=== PATIENT | male | born 1985 | race Caucasian/White ===

== ENCOUNTER 2023-02-28 20:06 | Emergency (ER) | payer SELFPAY ==
[2023-02-28 20:06] VITALS: BP 164/72; PULSE 81; RESP 16; TEMP 36.6; O2SAT 98; BMI 27.6
--- NOTE | 2023-02-28 20:18 | ED.RN ---
In room with physician during physical exam, patient tolerated well.
[2023-02-28] MEDS: Lidocaine Jelly 2% 20 ML Syringe (URO-JET) 1 APPLIC TOPICAL (20:48)
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
== END 2023-02-28 20:51 | disposition home or self-care (01) ==
PROVIDERS: Emergency Provider Emergency Medicine; Visit Provider Emergency Medicine
DX: K64.4 Residual hemorrhoidal skin tags (principal)
CPT/HCPCS: 99282

== ENCOUNTER 2023-03-01 18:26 | Emergency (ER) | payer SELFPAY ==
[2023-03-01 18:27] VITALS: BP 127/77; PULSE 84; RESP 18; TEMP 36.6; O2SAT 99; BMI 26.6
--- NOTE | 2023-03-01 21:02 | ED.VIS.GI ---
HPI HPI - GI History of Present Illness Chief Complaint: Wound Check Detail of Chief Complaint: Hemorrhoid pain. Informant: patient and spouse/S.O. Abdominal Pain/Flank Pain Onset: Days Context: Gradual Onset Timing: Continuous Nausea/Vomiting/Emesis GI Symptom: Negative for Nausea or Vomiting Diarrhea/Melena/Hematochezia GI Symptom: Negative for Diarrhea, Melena or Hematochezia Associated Symptoms Associated Symptoms: Negative for Dysuria, Frequency or Hematuria Narrative Narrative: 37-year-old male history of external hemorrhoids. Was seen in the ER the other day placed on lidocaine jelly. The hemorrhoid pain is worse. He denies any bleeding. No fever. No other complaints. Prior similar symptoms: Yes Recent Illness/Hospitalization: No PFSH PFSH no medical history Home Medications Ibuprofen [Motrin] 800 mg PO TID PRN PRN Pain #15 tabs 03/15/15 [Rx Last Taken Unknown] tramadol 50 mg tablet 50 mg PO Q6H PRN PRN Pain #10 tabs 03/15/15 [Rx Last Taken Unknown] clindamycin HCl 150 mg capsule 300 mg (2 x 150 mg) PO 4X/DAY ##80 04/12/15 [Rx Last Taken Unknown] tramadol 50 mg tablet 50 mg PO Q4H PRN PRN Pain #12 tabs 04/12/15 [Rx Last Taken Unknown] Allergy/AdvReac Type Severity Reaction Status Date / Time bee venom protein (honey bee) Allergy Severe Anaphylaxis Verified 03/01/23 18:27 guaifenesin [From Robitussin] Allergy THROAT Verified 03/01/23 18:27 SWELLING Penicillins Allergy THROAT Verified 03/01/23 18:27 SWELLING Social History Smoking Status: Never smoker ROS ROS ED ROS Narrative Denies any recent illness. Perirectal pain. Review of Systems ROS Unobtainable: Denies due to encephalopathy Constitutional Constitutional ED: Denies chills or fever(s) ENT ENT ED: Denies ear pain Cardiovascular Cardiovascular: Denies chest pain Respiratory/Chest Respiratory/Chest: Denies cough Gastrointestinal Gastrointestinal: Denies abdominal pain, constipation, diarrhea, melena, nausea or vomiting Genitourinary Genitourinary ED: Denies dysuria Musculoskeletal Musculoskeletal: Denies arthralgias Integumentary Denies abscess Neurologic Neurologic: Denies headache(s) Psychiatric Psychiatric: Denies anxiety Endocrine Endocrinology: Denies polydipsia Hematologic/Lymphatic Hematologic/Lymphatic: Denies easy bleeding Allergic/Immunologic Allergic/Immunologic ED: Denies mouth swelling EXAM Physical Exam Narrative Exam Narrative: Well-appearing 37-year-old male vital signs stable afebrile. HEENT exam normal. Lungs clear. Heart regular rhythm. Abdomen soft nontender. Anal exam is 1 external hemorrhoid appears to be thrombosed. There is no bleeding. There is no redness. Otherwise exam unremarkable. Const Vital Signs: 03/01/23 18:27 Temperature 97.8 F Temperature Source Temporal Pulse Rate 84 Respiratory Rate 18 Blood Pressure 127/77 H Blood Pressure Mean 93 Pulse Ox 99 Oxygen Delivery Method Room Air Positive well nourished and well developed; Negative for obese, cachectic, contractures or unkempt General Appearance ED: well developed and NAD; Negative for unkempt, cachectic, contractures or pallor Nutritional Appearance: Negative for cachectic or obese HEENT Reports moist mucous membranes normocephalic and atraumatic; Negative for trauma or tenderness Eyes PERRL and EOMs intact bilaterally General Eye ED: Negative for pale conjunctiva, scleral icterus or other Neck no lymphadenopathy, supple and no JVD General: Negative for tenderness Carotids: Negative for other Lymph Lymphatic: Negative for other Resp normal respiratory effort and clear to auscultation bilaterally Effort and Inspection: Negative for respiratory distress Auscultation: Negative for rales, rhonchi or wheezes Cardio regular rate, regular rhythm, S1 normal heart sound, S2 normal heart sound and no murmurs Rate: Negative for bradycardia or tachycardic Rhythm: Negative for abnormal rhythm GI non-tender, non-distended and no masses GI Narrative: External thrombosed hemorrhoid. Tender to palpation. Inspection: Negative for abdominal distention Auscultation: normoactive bowel sounds Palpation: soft; Negative for tender or guarding Back/Spine no CVA tenderness Extremity full ROM General Extremety ED: Negative for edema or tenderness General Extremity: Negative for edema Neuro CN's II-XII intact bilaterally and moves all extremities Sensorium / Orientation: alert, oriented to person, oriented to place and oriented to time; Negative for orientation impaired, confused, lethargic or stuporous Motor Exam: strength 5/5 throughout Psych mental status grossly normal and thought process normal Appearance: Negative for unkempt Attitude: No agitated Mood & Affect: Negative for depressed, anxious or tearful Skin no wounds General Skin Exam: Negative for jaundice or pallor Lesions: no lesions Rashes: no rashes Trauma: Negative for abrasion Nails: Negative for discolored MDM MDM MDM Narrative Medical decision making narrative: 37-year-old male with a thrombosed external hemorrhoid. Lidocaine jelly not controlling his pain. Patient wanted it excised and drained. Local anesthetized with lidocaine. Cleaned with Shur-Clens. I made a 2 cm incision irrigate out the clot. Discharged home instructed on hemorrhoid care. Referred to general surgery for hemorrhoidectomy as needed. History & Record Review Discussion w/independent historian: Patient and Family Procedures Other Procedures Procedure(s): Thrombosed external hemorrhoid incision and drainage. Shur-Clens. Local anesthetized with lidocaine. Made a 1 to 2 cm vertical incision. Irrigated out blood clot. Patient tolerated well. Discharge Plan Triage Chief Complaint: Wound Check ED Provider: Earle Guzman Dx/Rx/DC Orders Clinical Impression: External hemorrhoid, thrombosed Instructions: Thrombosed Hemorrhoids Prescriptions: No Action tramadol 50 MG tablet 50 mg PO Q6H PRN PRN (Reason: Pain) Qty: 10 0RF Ibuprofen [Motrin] 800 MG tablet 800 mg PO TID PRN PRN (Reason: Pain) Qty: 15 0RF clindamycin HCl 150 MG capsule 300 mg PO 4X/DAY Qty: 80 0RF tramadol 50 MG tablet 50 mg PO Q4H PRN PRN (Reason: Pain) Qty: 12 0RF Primary Care Provider: Care Physician,No Primary Referrals: Armani Lynne MD [Med Staff - Active Staff] - As Needed Care Physician,No Primary [Primary Care Provider] - Activity Restrictions/Additional Instructions: Motrin and Tylenol for pain. Preparation H or hemorrhoid cream 3 times a day. Warm soaks. If it does not completely go away follow-up with a local surgeon they can remove the hemorrhoid completely. Disposition Disposition: Home, Self Care
--- NOTE | 2023-03-01 21:21 | ED.RN ---
Wound dressed with non-stick and drain sponges. Patient verbalized understanding of instructions. Ambulatory from department.
== END 2023-03-01 21:23 | disposition home or self-care (01) ==
PROVIDERS: Emergency Provider Emergency Medicine; Visit Provider Emergency Medicine
DX: K64.5 Perianal venous thrombosis (principal)
CPT/HCPCS: 46083; 99283

== ENCOUNTER 2023-06-30 20:50 | Emergency (ER) | payer SELFPAY ==
[2023-06-30 20:51] VITALS: BP 113/87; PULSE 94; RESP 16; TEMP 36.6; O2SAT 97; BMI 22.2
--- NOTE | 2023-06-30 22:14 | ED.VIS.DENTA ---
HPI History of Present Illness Chief Complaint: Dental Detail of Chief Complaint: Dental pain involving multiple teeth Informant: patient Onset/Context/Timing Onset: Weeks Context: Sudden Onset Timing: Continuous and Waxes and wanes Quality: Pain Location: Above upper incisors teeth 7 through 10 Current Severity: Mild Maximum Severity: Severe Worsened by: Hot liquids Relieved by: - (Nothing) Associated Symptoms Assocated Symptom - Dental: cold sensitivity and hot sensitivity; Negative for fever, jaw swelling or face swelling Narrative Narrative: Patient is a 37-year-old male. He presents with dental pain. Started a week ago. He initially had sensitivity to cold liquids and ice cream. He now has sensitivity to hot liquids. He localizes the pain in the proximity of teeth 7 through 10. He denies fever, chills night sweats. [place] history medic fever, heart murmur mitral prolapse. He denies facial swelling or redness. He denies difficulty opening or closing his mouth. He apparently has a dental appointment. Prior similar symptoms: No Recent Illness/Hospitalization: No PFSH PFSH Home Medications Ibuprofen [Motrin] 800 mg PO TID PRN PRN Pain #15 tabs 03/15/15 [Rx Last Taken Unknown] tramadol 50 mg tablet 50 mg PO Q6H PRN PRN Pain #10 tabs 03/15/15 [Rx Last Taken Unknown] clindamycin HCl 150 mg capsule 300 mg (2 x 150 mg) PO 4X/DAY ##80 04/12/15 [Rx Last Taken Unknown] tramadol 50 mg tablet 50 mg PO Q4H PRN PRN Pain #12 tabs 04/12/15 [Rx Last Taken Unknown] clindamycin HCl 150 mg capsule 300 mg (2 x 150 mg) PO 4X/DAY #56 CAPSULES 06/30/23 [Rx Last Taken Unknown] hydrocodone-acetaminophen 5-325mg 5mg-325mg 1 tab PO Q6H PRN PRN Pain 3 days #10 TABLETS 06/30/23 [Rx Last Taken Unknown] ibuprofen 600 mg tablet 600 mg PO Q6H PRN PRN pain #20 TABLETS 06/30/23 [Rx Last Taken Unknown] Allergy/AdvReac Type Severity Reaction Status Date / Time bee venom protein (honey bee) Allergy Severe Anaphylaxis Verified 06/30/23 21:46 guaifenesin [From Robitussin] Allergy THROAT Verified 06/30/23 21:46 SWELLING Penicillins Allergy THROAT Verified 06/30/23 21:46 SWELLING Surgical History no surgical history no surgical history Social History (Updated 06/30/23 @ 22:[address] Savage Tamayo MD) household members: family Smoking Status: Current every day smoker tobacco type: cigarettes alcohol intake: current ROS ROS ED Constitutional Constitutional ED: Denies chills, fever(s), subjective, sweats or weight loss Eyes Eyes: Denies blurry vision or change in vision ENT ENT ED: Reports other Details: Dental pain as described in the HPI narrative ; Denies ear pain, rhinorrhea or sore throat Cardiovascular Cardiovascular: Reports other Details: No history medic fever, heart murmur mitral valve prolapse. No history of SBE. Respiratory/Chest Respiratory/Chest: Denies cough, dyspnea or dyspnea on exertion Gastrointestinal Gastrointestinal: Denies nausea or vomiting Integumentary Denies abscess or rash Neurologic Neurologic: Denies headache(s) Hematologic/Lymphatic Hematologic/Lymphatic: Denies easy bleeding or easy bruising Allergic/Immunologic Allergic/Immunologic ED: Denies mouth swelling or tongue swelling EXAM Physical Exam Const Vital Signs: 06/30/23 20:51 Temperature 97.9 F Temperature Source Temporal Pulse Rate 94 Respiratory Rate 16 Blood Pressure 113/87 H Blood Pressure Mean 95 Pulse Ox 97 Oxygen Delivery Method Room Air Positive well nourished and well developed Constitutional Narrative: Patient appears slightly uncomfortable. General Appearance ED: well developed HEENT HEENT Narrative: Patient has numerous dental caries. There is abnormality of the gum above tooth #7 and 8. There is no fluctuance. There is receding gumline. There is evidence of plaque buildup with acute on chronic gingivitis and periodontal disease. He has no evidence of trismus. There is no evidence of facial swelling or cellulitis. There is a click appreciated over the left TMJ with opening closing his mouth. There is no preauricular lymphadenopathy. There is no swelling of his lips. Face and Sinus: Negative for sinuses nontender Mouth ED: Yes oral and palatal mucosa normal, Yes lips normal, Yes tongue normal and No mouth trauma Mouth: oral and palatal mucosa normal, lips normal, tongue normal and No mouth trauma Teeth and Gingiva: abnormal tooth and associated gingiva, caries, gingiva abnormal, poor dentition and teeth discoloration Throat: posterior oropharynx normal Eyes PERRL and EOMs intact bilaterally General Eye ED: Negative for pale conjunctiva or scleral icterus Neck no lymphadenopathy, supple and no JVD Neck Narrative: Trachea is midline. There is no inspiratory expiratory stridor. General: normal visual inspection; Negative for anterior neck swelling, tenderness or submandibular swelling Resp normal respiratory effort, no retractions and clear to auscultation bilaterally Cardio regular rate, regular rhythm, S1 normal heart sound, S2 normal heart sound and no murmurs Neuro oriented x3 and CN's II-XII intact bilaterally Sensorium / Orientation: alert Psych mental status grossly normal Skin no rashes or lesions noted and no wounds MDM MDM MDM Narrative Medical decision making narrative: Patient has significant dental disease. He has symptomatic irreversible pulpitis. He has numerous cavities. He probably has a deep dental infection on top of this. In light of his allergy to penicillin he was treated with clindamycin. He was treated with NSAID and opiate analgesia for his pain. He was instructed to keep his appointment with a dentist since the only 1 who can take care of his pain definitively is a dentist since he has irreversible pulpitis. History & Record Review Discussion w/independent historian: Family Treatment and Re-Evaluation Narrative: Patient received ibuprofen, [place] and clindamycin in the emergency department prior to discharge. Discharge Plan Triage Chief Complaint: Dental ED Provider: Savage Tamayo Dx/Rx/DC Orders Clinical Impression: Dental caries of root surface, Periodontitis, Dental caries extending into dentin, Symptomatic irreversible pulpitis, Gingivitis due to dental plaque Instructions: ED Dental Cavity Prescriptions: New hydrocodone-acetaminophen [hydrocodone-acetaminophen] 5-325 mg tablet 1 tab PO Q6H PRN PRN (Reason: Pain) 3 Days Qty: 10 0RF clindamycin HCl 150 mg capsule 300 mg PO 4X/DAY Qty: 56 0RF ibuprofen 600 mg tablet 600 mg PO Q6H PRN PRN (Reason: pain) Qty: 20 0RF No Action tramadol 50 MG tablet 50 mg PO Q6H PRN PRN (Reason: Pain) Qty: 10 0RF Ibuprofen [Motrin] 800 MG tablet 800 mg PO TID PRN PRN (Reason: Pain) Qty: 15 0RF clindamycin HCl 150 MG capsule 300 mg PO 4X/DAY Qty: 80 0RF tramadol 50 MG tablet 50 mg PO Q4H PRN PRN (Reason: Pain) Qty: 12 0RF Primary Care Provider: Care Physician,No Primary Referrals: Care Physician,No Primary [Primary Care Provider] - Dentist,Your [STAFF PHYSICIAN] - 3-5 Days Disposition Disposition: Home, Self Care
[2023-06-30] MEDS: Ibuprofen 400 MG Tablet 800 MG PO (22:21)
[2023-06-30] MEDS: HYDROcodone Bitartrate/Apap 5/325 Tablet PO (22:21)
[2023-06-30] MEDS: Clindamycin HCl 150 MG Capsule 300 MG PO (22:21)
[2023-06-30 22:42] VITALS: PULSE 80; RESP 18; O2SAT 98
[2023-06-30 22:43] VITALS: RESP 16
== END 2023-06-30 22:44 | disposition home or self-care (01) ==
PROVIDERS: Emergency Provider Emergency Medicine; Visit Provider Emergency Medicine
DX: K02.7 Dental root caries (principal); K04.02 Irreversible pulpitis; F17.210 Nicotine dependence, cigarettes, uncomplicated; K05.30 Chronic periodontitis, unspecified; K05.10 Chronic gingivitis, plaque induced
CPT/HCPCS: 99283

== ENCOUNTER 2023-09-30 19:32 | Emergency (ER) | payer SELFPAY ==
[2023-09-30 19:33] VITALS: BP 135/66; PULSE 82; RESP 14; TEMP 36.2; O2SAT 97; BMI 26.2
--- NOTE | 2023-09-30 20:19 | ED.VIS.LOWEX ---
HPI History of Present Illness Chief Complaint: Lower Extremity Injury Informant: patient Narrative Narrative: Left great toe injury while moving a couch with his brother. States toenail caught on the wooden edge, nail came up pulled up bleeding. He trim the nail down. Pain to the toe. No medications taken. No history gastric ulcers or kidney problems. [facility] PFSH Medical History no medical history Home Medications Ibuprofen [Motrin] 800 mg PO TID PRN PRN Pain #15 tabs 03/15/15 [Rx Last Taken Unknown] tramadol 50 mg tablet 50 mg PO Q6H PRN PRN Pain #10 tabs 03/15/15 [Rx Last Taken Unknown] clindamycin HCl 150 mg capsule 300 mg (2 x 150 mg) PO 4X/DAY ##80 04/12/15 [Rx Last Taken Unknown] tramadol 50 mg tablet 50 mg PO Q4H PRN PRN Pain #12 tabs 04/12/15 [Rx Last Taken Unknown] clindamycin HCl 150 mg capsule 300 mg (2 x 150 mg) PO 4X/DAY #56 CAPSULES 06/30/23 [Rx Last Taken Unknown] hydrocodone-acetaminophen 5-325mg 5mg-325mg 1 tab PO Q6H PRN PRN Pain 3 days #10 TABLETS 06/30/23 [Rx Last Taken Unknown] ibuprofen 600 mg tablet 600 mg PO Q6H PRN PRN pain #20 TABLETS 06/30/23 [Rx Last Taken Unknown] Allergy/AdvReac Type Severity Reaction Status Date / Time bee venom protein (honey bee) Allergy Severe Anaphylaxis Verified 09/30/23 19:33 guaifenesin [From Robitussin] Allergy THROAT Verified 09/30/23 19:33 SWELLING Penicillins Allergy THROAT Verified 09/30/23 19:33 SWELLING Social History household members: family Smoking Status: Current every day smoker tobacco type: cigarettes alcohol intake: current ROS ROS ED Constitutional Constitutional ED: Denies chills, fever(s) or sweats Eyes Eyes: Denies change in vision ENT ENT ED: Denies dysphagia or sore throat Cardiovascular Cardiovascular: Denies chest pain, leg edema, palpitations or racing heartbeat Respiratory/Chest Respiratory/Chest: Denies cough, dyspnea or dyspnea on exertion Gastrointestinal Gastrointestinal: Denies abdominal pain, diarrhea, nausea or vomiting Genitourinary Genitourinary ED: Denies dysuria, hematuria or urinary frequency Musculoskeletal Musculoskeletal: Reports extremity pain and other Details: Left great toe pain. ; Denies back pain or neck pain Integumentary Denies rash or wounds Neurologic Neurologic: Denies headache(s), paresthesias or weakness EXAM Physical Exam Const Vital Signs: 09/30/23 19:33 Temperature 97.2 F L Temperature Source Temporal Pulse Rate 82 Respiratory Rate 14 Blood Pressure 135/66 H Blood Pressure Mean 89 Pulse Ox 97 Oxygen Delivery Method Room Air Positive well nourished and well developed General Appearance ED: well developed and NAD HEENT Reports moist mucous membranes normocephalic and atraumatic Eyes PERRL, EOMs intact bilaterally and conjunctivae normal General Eye ED: Yes normal appearance of both eyes Neck no lymphadenopathy and supple General: Negative for tenderness Chest Wall Chest: Negative for tenderness Resp normal respiratory effort and normal air movement Effort and Inspection: symmetric chest movement; Negative for respiratory distress Cardio regular rate, regular rhythm and no murmurs Peripheral Pulses: pulses 2+ throughout GI normal to inspection, nondistended, normoactive bowel sounds and non-tender Palpation: Negative for guarding or rebound tenderness present Back/Spine no CVA tenderness and no thoracic nor lumbar tenderness Extremity Extremity Narrative: Left lower extremity: Foot with left great toe: Bandage removed, trim toenail there is no current avulsion there is tender palpation proximal phalanx. No open lacerations. No active bleeding. No contusion of nailbed. General Extremety ED: Yes tenderness; Negative for edema General Extremity: Negative for edema Neuro oriented x3 and no sensory deficits noted Sensorium / Orientation: awake and alert Skin no rashes or lesions noted and no wounds MDM MDM MDM Narrative Medical decision making narrative: Interventions / MDM: Differential diagnosis: Toenail avulsion Diagnosis considered but do not suspect: No subungual hematoma. Fracture however x-ray negative no fracture noted. My EKG interpretation: N/A Imaging independently reviewed and interpreted by myself: Left foot 3 views: External documents reviewed: N/A Test considered but not ordered:N/A ED course: Ice placed, ibuprofen. X-ray left foot. X-ray negative. Band-Aids used to help hold down the nail, no current avulsion. Use ibuprofen as needed. Outpatient follow-up given podiatry as needed. All questions were answered. Re-evaluation: stable Disposition discussed with patient/family/significant other: Patient and family Case discussed with consulting clinician: N/A This note was generated with [employer] dictation software. It may contain incorrect words, spelling, and punctuation that were not noted in checking the note before signing. Discharge Plan Triage Chief Complaint: Lower Extremity Injury ED Provider: Huang Carrizales Dx/Rx/DC Orders Clinical Impression: Avulsion of toenail of left foot Instructions: ED Detached Fingernail or Toenail Prescriptions: No Action tramadol 50 MG tablet 50 mg PO Q6H PRN PRN (Reason: Pain) Qty: 10 0RF Ibuprofen [Motrin] 800 MG tablet 800 mg PO TID PRN PRN (Reason: Pain) Qty: 15 0RF clindamycin HCl 150 MG capsule 300 mg PO 4X/DAY Qty: 80 0RF tramadol 50 MG tablet 50 mg PO Q4H PRN PRN (Reason: Pain) Qty: 12 0RF hydrocodone-acetaminophen [hydrocodone-acetaminophen] 5-325 mg tablet 1 tab PO Q6H PRN PRN (Reason: Pain) 3 Days Qty: 10 0RF clindamycin HCl 150 mg capsule 300 mg PO 4X/DAY Qty: 56 0RF ibuprofen 600 mg tablet 600 mg PO Q6H PRN PRN (Reason: pain) Qty: 20 0RF Primary Care Provider: Care Physician,No Primary Referrals: Roger Smith DPM [Med Staff - Active Staff] - 1-2 Weeks Care Physician,No Primary [Primary Care Provider] - Activity Restrictions/Additional Instructions: X-ray of foot negative. Continue to use Band-Aids to hold toenail down. Ibuprofen 600 mg every 6 hours as needed. Follow-up with foot doctor as needed. Disposition Disposition: Home, Self Care
--- NOTE | 2023-09-30 20:25 | RAD_ITS ---
EXAM: XR LEFT FOOT COMPLETE, 3 OR MORE VIEWS CLINICAL INDICATION: injury -- great toe TECHNIQUE: Frontal, lateral and oblique views of the left foot. COMPARISON: No relevant prior studies available. FINDINGS: BONES/JOINTS: Unremarkable. No acute fracture. No subluxation. Normal alignment. Preservation of the joint space. No sclerotic or destructive changes observed. SOFT TISSUES: Unremarkable. No soft tissue swelling or gas. No radiopaque foreign body. RAD/Foot min 3 Views IMPRESSION: Negative left foot x-rays. Electronically Signed: Stan Nix MD at 21:06 EST ,
--- OUTSIDE RECORDS SUMMARY | 2023-09-30 20:29 | XMS RPT_ITS | CCD ---
Author Name Unknown Address [address] [place] [id number] Organization [facility] Care Team Providers Care Knitter Helper Name Role Phone Unavailable Primary Care Provider Unavailabl e Allergies Allergy Classification Reported Allergen(s) Allergy Type Date of Onset Reaction(s) Facility (1 source) bee venom Propensity to adverse reactions to drug 11-17-2021 [facility] (1 source) guaiFENesin Drug Allergy 11-17-2021 [facility] Work Phone: (1 source) Penicillins Propensity to adverse reactions to drug 11-17-2021 [facility] Work Phone: Problems Problem Classification Problem Date Documented Da te Episodic/Chronic Sprains and strains (1 source) Sprain of left ankle; Translations: [Sprain of unspecified ligament of left ankle, initial encounter] Episodic Results Test Name Value Interpretation Reference Range Facil ity Vital Signs Date Time Vital Sign Value Performing Clinician Johnson vallejo 11-17-2021 18:33-0400 Body height 193 cm [facility] 11-17-2021 18:33-0400 Body mass index (BMI) [Ratio] 24.34 kg/m2 [facility] 11-17-2021 18:33-0400 Body weight 90.72 kg [facility] 11-17-2021 18:22-0400 Body temperature 98.2 [degF] [facility] 11-17-2021 18:22-0400 Diastolic blood pressure 74 mm[Hg] [facility] 11-17-2021 18:22-0400 Heart rate 96 /min [facility] 11-17-2021 18:22-0400 Respiratory rate 14 /min [facility] 11-17-2021 18:22-0400 SaO2% (BldA) [Mass fraction] 97 % [facility] 11-17-2021 18:22-0400 Systolic blood pressure 135 mm[Hg] Octavia kenneth Encounters Encounter Date Encounter Type Care Provider Facility Start: 11-17-2021 End: 11-17-2021 Emergency department patient visit [facility] Start: 11-17-2021 End: 11-17-2021 Emergency department patient visit [facility] Procedures Date Procedure Procedure Detail Performing Clinician [facility]: [facility] Start: 11-17-2021 Radex ankle complete minimum 3 views Start: 11-17-2021 Radex ankle complete minimum 3 views Katia Ferraro PA Work Phone: Plan of Treatment Date Care Activity Detail Author Start: 03-25-2022 Influenza vaccination Flu vaccine (S terrance Ended) [facility] Start: 11-18-2006 DTaP/Tdap/Td vaccine (1 - Tdap) DTaP/Tdap/Td vaccine (1 - Tdap) [facility] Start: 11-18-2005 Hepatitis C screening Hepatitis C sc reen [facility] Start: 11-18-2002 HIV screening HIV screen [facility] Start: 1999 Depression Screen Depression Screen [facility] Start: 11-18-1992 COVID-19 Vaccine (1) COVID-19 Vaccin e (1) [facility] Start: 11-18-1988 Varicella vaccine (1 of 2 - 2-dose childhood series) Varicella vaccine (1 of 2 - 2-dose childhood series) [facility] Social History Date Type Detail Facility [facility]: [facility] Start: 11-17-2021 Tobacco use and exposure Former smokeless tobacco user [facility] Phone: Start: 1987 Sex Assigned At Not on file [facility] Phone: Start: 11-07-2021 End: 11-17-2021 Exposure to SARS-CoV-2 (event) Not sure [facility] Phone: Evaluation note Note Date & Type Note Facility documented in this encounter [facility] Phone: Hospital Discharge instructions Attachments Note Date & Type Note Facility Hospital Discharge instructions The following attachments cannot be sent through Care Everywhere.Ankle Sprain (German)RICE: General Info (German)documented in this encounter [facility] Phone: Summary Purpose Family History No Family History Records Found Advance Directives No Advanced Directives Records Found Additional Source Comments Reason for Visit (unrecogniz ed section and content) (unrecognized sect ion and content) No Status Records Found INFORMATION SOURCE (unrecogn ized section and content) FOR RECORDS PERTAINING TO PATIENTS WHO ARE OR HAVE BEEN ENROLLED IN A CHEMICAL DEPENDENCY/SUBSTANCEABUSE PROGRAM, SOME INFORMATION MAY BE OMITTED. This clinical summary was aggregated from multiple sources. Caution should be exercised in using it in the provision of clinical care. This summary normalizes information from multiple sources, and as a consequence, information in this document may materially change the coding, format and clinical context of patient data. In addition, data may be omitted in some cases. CLINICAL DECISIONS SHOULD BE BASED ON THE PRIMARY CLINICAL RECORDS. [facility]. provides no warranty or guarantee of the accuracy or completeness of information in this document.
[2023-09-30] MEDS: Ibuprofen 600 MG Tablet PO (20:50)
[2023-09-30 21:03] VITALS: BP 118/76; PULSE 81; RESP 18; TEMP 36.1; O2SAT 99
== END 2023-09-30 21:03 | disposition home or self-care (01) ==
PROVIDERS: Emergency Provider Emergency Medicine; Visit Provider Emergency Medicine
DX: S91.202A Unspecified open wound of left great toe with damage to nail, initial encounter (principal); X58.XXXA Exposure to other specified factors, initial encounter; Y93.89 Activity, other specified
CPT/HCPCS: 73630; 99282

== ENCOUNTER 2023-11-28 18:12 | Emergency (ER) | payer MEDICAID, SELFPAY ==
[2023-11-28 18:13] VITALS: BP 115/68; PULSE 105; RESP 16; TEMP 36.4; O2SAT 96; BMI 24.8
--- NOTE | 2023-11-28 20:30 | EX.ED.DYSGE1 ---
HPI <MARGY Berry - Last Filed: 11/28/23 21:37> History of Present Illness Chief Complaint: Wound Narrative Narrative: Patient is a 38-year-old male with history of IV drug abuse who has been clean for 9 years who is still in the [facility] program presenting to the emergency department for lesions to his right hand, right lower leg. Patient states they are constant scabs however sometimes they do get more inflamed and red. Patient states sometimes he feels there is infected hairs, they come up as looking like pimples. Patient denies any fever chills nausea or vomiting. Patient states he no longer injects medication. PFSH <MARGY Berry - Last Filed: 11/28/23 21:37> [facility] Home Medications doxycycline hyclate 100 mg capsule 100 mg PO BID #20 caps 11/28/23 [Rx Last Taken Unknown] Allergy/AdvReac Type Severity Reaction Status Date / Time bee venom protein (honey bee) Allergy Severe Anaphylaxis Verified 11/28/23 18:14 guaifenesin [From Robitussin] Allergy THROAT Verified 11/28/23 18:14 SWELLING Penicillins Allergy THROAT Verified 11/28/23 18:14 SWELLING Social History household members: family Smoking Status: Current every day smoker tobacco type: cigarettes alcohol intake: current ROS <MARGY Berry - Last Filed: 11/28/23 21:37> ROS ED ROS Narrative Constitutional: Negative for fever, chills, weight loss, weakness Eyes: Negative for vision loss, vision change, double vision ENT: Negative for any sore throat, ear pain, congestion Cardiovascular: Negative for any chest pain, tightness, palpitations Respiratory: Negative for any cough, sputum production, hemoptysis, dyspnea, dyspnea on exertion, orthopnea Gastrointestinal: Negative for any abdominal pain, nausea, vomiting, diarrhea, constipation, blood in stool, blood in vomit : Negative for any urinary frequency, dysuria, retention, blood in urine Muscle skeletal: Negative for any neck pain, back pain Neurological: Negative for any headache, syncope, dizziness Skin: Negative for any rashes, itching, abrasions, lacerations. Positive for lesions to the right thumb, right wrist, right lower leg Psychiatric: Negative for any depression, anxiety, stress, suicidal ideation, homicidal ideation Hematologic: Negative for any excessive bruising, easy bleeding EXAM <MARGY Berry - Last Filed: 11/28/23 21:37> Physical Exam Narrative Exam Narrative: Vital signs reviewed. Extremities: No peripheral edema, no signs of gross trauma or deformity. Active full range of motion of all extremities. Patient has 2 circular lesions 1 to the base of the right thumb posteriorly, 1 to the right wrist. There is some erythema around these areas, there is a scab in the middle, there is no drainage, there is no fluctuance or abscess formation. Patient does have a similar lesion to the right anterior tibia midline. There is a scab with some surrounding erythema concerning for cellulitis. There is no drainage noted. Neuro: Cranial nerves II through XII intact, no focal neurological deficits. Skin: Clean dry and intact with no rash, purpura, petechiae, vesicles or pustules. Backs/flank: No CVA tenderness, no midline spinal tenderness, no deformity. Psych: Normal mood and affect. No SI, HI or acute psychosis. Const Vital Signs: 11/28/23 18:13 11/28/23 21:41 Temperature 97.5 F L 99.0 F Temperature Source Temporal Pulse Rate 105 H 98 Respiratory Rate 16 18 Blood Pressure 115/68 114/60 Blood Pressure Mean 83 78 Pulse Ox 96 96 Oxygen Delivery Method Room Air <Dr. Jayy Nielsen DO - Last Filed: 11/28/23 22:56> Physical Exam Const Vital Signs: 11/28/23 18:13 11/28/23 21:41 Temperature 97.5 F L 99.0 F Temperature Source Temporal Pulse Rate 105 H 98 Respiratory Rate 16 18 Blood Pressure 115/68 114/60 Blood Pressure Mean 83 78 Pulse Ox 96 96 Oxygen Delivery Method Room Air [facility] <MARGY Berry - Last Filed: 11/28/23 21:37> [facility] Treatment and Re-Evaluation :: Differential diagnosis includes however is not limited to: Cellulitis, abscess formation, abrasion, injection cox Patient appears to be in no obvious respiratory distress, patient's vital signs are stable. Patient presents to the emergency department with lesions to the right thumb, right wrist. Patient also has a lesion to the right tibia. These look to be chronic however there is some surrounding cellulitis. Patient appears to be in no obvious distress. At this time, patient be placed on doxycycline twice a day for 10 days. Instructed return for any worsening symptoms. All questions were answered, patient will keep the area clean and dry. Patient stable for discharge. <Dr. Jayy Nielsen DO - Last Filed: 11/28/23 22:56> [facility] Treatment and Re-Evaluation :: Differential diagnosis includes however is not limited to: Cellulitis, abscess formation, abrasion, injection cox Patient appears to be in no obvious respiratory distress, patient's vital signs are stable. Patient presents to the emergency department with lesions to the right thumb, right wrist. Patient also has a lesion to the right tibia. These look to be chronic however there is some surrounding cellulitis. Patient appears to be in no obvious distress. At this time, patient be placed on doxycycline twice a day for 10 days. Instructed return for any worsening symptoms. All questions were answered, patient will keep the area clean and dry. Patient stable for discharge. ED attending note: I evaluated the patient in conjunction with the TANISHA. I agree with his/her statements and above findings. I have personally performed a face to face assessment of the patient and have reviewed the TANISHA Note. I performed a substantive portion of the visit including all aspects of the following. I personally saw the patient performed chart review, physical exam, reviewed labs, imaging (if obtained), and formulated a treatment and management plan. This note was generated with [employer] dictation software. It may contain incorrect words, spelling, and punctuation that were not noted in review of the chart prior to signing. Discharge Plan Triage Chief Complaint: Wound ED Midlevel Provider: Thor Ruiz ED Provider: Jayy Nielsen Dx/Rx/DC Orders Clinical Impression: Cellulitis Instructions: Cellulitis Dc Prescriptions: New doxycycline hyclate 100 mg capsule 100 mg PO BID Qty: 20 0RF Stand Alone Forms: ED Work / School Excuse Primary Care Provider: Care Physician,No Primary Referrals: Guero Farias MD [Med Staff - Motorcycle Subassembler] - Care Physician,No Primary [Primary Care Provider] - Activity Restrictions/Additional Instructions: Take antibiotics until finished. Disposition Disposition: Home, Self Care Discharge Date/Time: 11/28/23 21:44
[2023-11-28] MEDS: Doxycycline 100 MG CAPSULE PO (21:38)
[2023-11-28 21:41] VITALS: BP 114/60; PULSE 98; RESP 18; TEMP 37.2; O2SAT 96
== END 2023-11-28 21:44 | disposition home or self-care (01) ==
PROVIDERS: Emergency Provider Emergency Medicine; Visit Provider Emergency Medicine
DX: L03.115 Cellulitis of right lower limb (principal); F17.210 Nicotine dependence, cigarettes, uncomplicated; L03.011 Cellulitis of right finger; L03.113 Cellulitis of right upper limb
CPT/HCPCS: 99282

== ENCOUNTER 2023-12-05 09:22 | Observation (INO) | payer MEDICAID, SELFPAY ==
[2023-12-05] VITALS (7 sets, daily range): BP systolic 108–132; BP diastolic 55–79; PULSE 66–76; RESP 14–18; TEMP 36.2–36.8; O2SAT 95–99; BMI 22.5; BMI 22.2
--- NOTE | 2023-12-05 09:42 | CT_ITS ---
STUDY: CT ABDOMEN AND PELVIS WITH CONTRAST REASON FOR EXAM: Male, 38 years old. Right abdominal pain RADIATION DOSAGE (If Supplied By Facility): CTDIvol = ( 12.14 ) mGy, DLP = ( 759.53 ) mGycm TECHNIQUE: IV 100mL Isovue-300 was administered. Transaxial images were obtained from the dome of the diaphragm to the symphysis pubis. Multiplanar coronal and sagittal images were reformatted. Individualized Dose Optimization Techniques Were Used For This CT. COMPARISON: No relevant prior comparison study available FINDINGS: The visualized lung bases are unremarkable. The visualized portions of the heart are within normal limits. Borderline to mild hepatomegaly. No focal lesion is seen. Normal gallbladder and extrahepatic biliary system. Borderline to mild splenomegaly. Normal pancreas. Normal bilateral adrenal glands. Normal visualized stomach. Normal in caliber small bowel loops. No evidence of acute diverticulitis. There is non-visualization of the appendix. Normal abdominal aorta. No retroperitoneal adenopathy. Normal right kidney. Normal left kidney. The bladder is collapsed and nondistended. Trace of free fluid in the pelvis. Normal abdominal wall. Minimal anterior wedging of T12 probably chronic or normal variant. Schmorl''s nodes. CT/Abdomen/Pelvis W IV Cont ONLY IMPRESSION: 1. Trace of free fluid in the pelvis. 2. No focal acute inflammatory process. 3. The appendix is identified and difficult to evaluate. 4. Borderline hepatosplenomegaly. Electronically Signed: Benton Macias MD at 10:59 EDT ,
--- NOTE | 2023-12-05 09:43 | ED.VIS.GI ---
HPI HPI - GI History of Present Illness Chief Complaint: Abd Pain Detail of Chief Complaint: Abdominal pain Informant: patient Abdominal Pain/Flank Pain Current Severity: 05/03 Narrative Narrative: Patient presents to the emergency department complaint of abdominal pain for the last 4 days. Pains been continuous. Now pain worse with coughing and movement. He denies fever. No diarrhea. He did have 1 episode of bloody stool yesterday that was bright red. No family history of inflammatory bowel disease such as Crohn's or ulcerative colitis. Denies urinary symptoms. He tells me his mother had a 30 pound cyst on her gallbladder years ago and he became concerned. Decreased appetite. No prior abdominal surgeries. PFSH PFSH Home Medications NK 12/05/23 [History Last Taken Unknown] Allergy/AdvReac Type Severity Reaction Status Date / Time bee venom protein (honey bee) Allergy Severe Anaphylaxis Verified 12/05/23 09:23 guaifenesin [From Robitussin] Allergy THROAT Verified 12/05/23 09:23 SWELLING Penicillins Allergy THROAT Verified 12/05/23 09:23 SWELLING Social History household members: family Smoking Status: Current every day smoker tobacco type: cigarettes alcohol intake: current ROS ROS ED Review of Systems ROS Unobtainable: other Constitutional Constitutional ED: Reports lethargy; Denies chills, fever(s), sweats or weight loss Eyes Eyes: Denies blurry vision, change in vision or diplopia ENT ENT ED: Denies rhinorrhea or sore throat Cardiovascular Cardiovascular: Reports chest pain and racing heartbeat; Denies orthopnea Respiratory/Chest Respiratory/Chest: Denies cough, dyspnea, dyspnea on exertion, orthopnea or sputum Gastrointestinal Gastrointestinal: Reports abdominal pain and nausea; Denies diarrhea or vomiting Genitourinary Genitourinary ED: Denies dysuria, hematuria or urinary frequency Musculoskeletal Musculoskeletal: Denies arthralgias, back pain, myalgias or neck pain Integumentary Denies abscess, Abrasions or rash Neurologic Neurologic: Denies headache(s) or weakness Psychiatric Psychiatric: Denies anxiety, depression or suicidal thoughts Endocrine Endocrinology: Denies polydipsia, polyphagia or polyuria Hematologic/Lymphatic Hematologic/Lymphatic: Denies easy bleeding, easy bruising or lymphadenopathy Allergic/Immunologic Allergic/Immunologic ED: Denies mouth swelling, tongue swelling or urticaria EXAM Physical Exam Const Vital Signs: 12/05/23 09:23 12/05/23 13:22 Temperature 97.9 F Temperature Source Temporal Pulse Rate 66 74 Respiratory Rate 18 14 Blood Pressure 122/65 H 120/79 Blood Pressure Mean 84 92 Pulse Ox 98 99 Oxygen Delivery Method Room Air Room Air Positive well nourished and well developed General Appearance ED: well developed and NAD HEENT Reports TM's clear and moist mucous membranes normocephalic and atraumatic; Negative for trauma or tenderness Tympanic Membrane ED: Yes TM's clear Eyes PERRL and EOMs intact bilaterally General Eye ED: Negative for pale conjunctiva or scleral icterus Neck no lymphadenopathy, supple and no JVD General: Negative for tenderness Chest Wall inspection of chest normal and palpation of chest normal Chest: Negative for tenderness Resp normal respiratory effort and clear to auscultation bilaterally Effort and Inspection: Negative for respiratory distress or pain with movement Auscultation: Negative for rhonchi, wheezes or diminished lung sounds Cardio regular rate, regular rhythm, S1 normal heart sound, S2 normal heart sound and no murmurs Peripheral Pulses: pulses 2+ throughout GI normal to inspection, nondistended, normoactive bowel sounds, soft to palpation, non-distended and no masses GI Narrative: Diffuse tenderness palpation over right upper quadrant and right lower quadrant with guarding. There is no rigidity. He does have some mild rebound. Back/Spine no CVA tenderness and no thoracic nor lumbar tenderness Extremity normal to inspection General Extremety ED: Negative for edema General Extremity: Negative for edema Neuro oriented x3, CN's II-XII intact bilaterally, no sensory deficits noted and gait normal Sensorium / Orientation: awake, alert, oriented to person, oriented to place and oriented to time Motor Exam: strength 5/5 throughout and strength abnormal Psych mental status grossly normal Skin no rashes or lesions noted and no wounds MDM MDM MDM Narrative Medical decision making narrative: Patient was 42 history of abdominal pain worse with walking and moving. He did have an episode of rectal bleeding yesterday but has history of hemorrhoids and he did feel hemorrhoid at the time and showered and felt like things relaxed went back to normal. He had loss of appetite and just has not felt well. IV line established. Patient was medicated with morphine and Zofran. CBC with differential obtained showed a normal WBC count of 8.9 with no left shift. Chemistries and LFTs unremarkable. Urinalysis was positive for nitrites but no other signs of infection. Initially obtain a CT scan with IV contrast only but the appendix could not be visualized no other significant findings were noted. Repeated the CT with oral contrast and again the CT T does not show or visualize the appendix but patient has some nondescript small amount of fluid right edge of the liver and right lower quadrant of unknown significance. This point patient was reevaluated at 1430 and continues to have right lower quadrant and right-sided abdominal pain. Etiology of his pain is unclear. I discussed case with general surgeon on-call Dr. Alcaraz who present to the emergency department to evaluate patient to help make disposition. Lab Data Attestation: I reviewed the patient's lab results. Labs: Laboratory Results - last 24 hr 12/05/23 12/05/23 12/05/23 09:45 09:45 09:45 WBC Cancelled 8.9 Corrected WBC Cancelled RBC Cancelled 4.85 Hgb Cancelled Hct MCV MCH MCHC RDW Std Deviation RDW Coeff of Angel Plt Count MPV Immature Gran % (Auto) Neut % (Auto) Lymph % (Auto) Dixon % (Auto) Eos % (Auto) Baso % (Auto) Absolute Neuts (auto) Absolute Lymphs (auto) Total Counted Neutrophils % (Manual) Band Neutrophils % Lymphocytes % (Manual) Monocytes % (Manual) Eosinophils % (Manual) Basophils % (Manual) Metamyelocytes % Myelocytes % Promyelocytes % Blast Cells % Plasma Cell % (Manual) Other Cells % Nucleated RBC % Nucleated RBCs/100 WBC Differential Comment Diff Path Review Hypersegmented Neuts Atypical Lymphocytes Reactive Lymphocytes Smudge Cells Toxic Granulation Toxic Vacuolation Dohle Bodies Dell Rods Platelet Estimate Plt Morphology Comment RBC Morphology Polychromasia Hypochromasia Basophilic Stippling Anisocytosis Microcytosis Macrocytosis Spherocytes Sickle Cells Target Cells Tear Drop Cells Ovalocytes Stomatocytes Avendaño-Hulbert Bodies [place] Cells Bite Cells Crenated Cell Acanthocytes (Spur) Rouleaux Schistocytes ESR Sodium Potassium Chloride Carbon Dioxide Anion Gap BUN Creatinine Estim Creat Clear Calc Est GFR (MDRD) Af Amer Est GFR (MDRD) Non-Af BUN/Creatinine Ratio Glucose Calcium Total Bilirubin AST ALT Alkaline Phosphatase Total Protein Albumin Globulin Albumin/Globulin Ratio Urine Color Urine Clarity Urine pH Ur Specific [place] Urine Protein Urine Glucose (UA) Urine Ketones Urine Occult Blood Urine Nitrite Urine Bilirubin Urine Urobilinogen Ur Leukocyte Esterase Urine RBC Urine WBC Ur Squamous Epith Cells Urine Bacteria Urine Mucus 12/05/23 12/05/23 12/05/23 09:45 09:45 09:45 WBC Corrected WBC RBC Hgb 13.6 Hct Cancelled 41.7 MCV Cancelled 86.0 MCH Cancelled MCHC RDW Std Deviation RDW Coeff of Angel Plt Count MPV Immature Gran % (Auto) Neut % (Auto) Lymph % (Auto) Dixon % (Auto) Eos % (Auto) Baso % (Auto) Absolute Neuts (auto) Absolute Lymphs (auto) Total Counted Neutrophils % (Manual) Band Neutrophils % Lymphocytes % (Manual) Monocytes % (Manual) Eosinophils % (Manual) Basophils % (Manual) Metamyelocytes % Myelocytes % Promyelocytes % Blast Cells % Plasma Cell % (Manual) Other Cells % Nucleated RBC % Nucleated RBCs/100 WBC Differential Comment Diff Path Review Hypersegmented Neuts Atypical Lymphocytes Reactive Lymphocytes Smudge Cells Toxic Granulation Toxic Vacuolation Dohle Bodies Dell Rods Platelet Estimate Plt Morphology Comment RBC Morphology Polychromasia Hypochromasia Basophilic Stippling Anisocytosis Microcytosis Macrocytosis Spherocytes Sickle Cells Target Cells Tear Drop Cells Ovalocytes Stomatocytes Avendaño-Hulbert Bodies [place] Cells Bite Cells Crenated Cell Acanthocytes (Spur) Rouleaux Schistocytes ESR Sodium Potassium Chloride Carbon Dioxide Anion Gap BUN Creatinine Estim Creat Clear Calc Est GFR (MDRD) Af Amer Est GFR (MDRD) Non-Af BUN/Creatinine Ratio Glucose Calcium Total Bilirubin AST ALT Alkaline Phosphatase Total Protein Albumin Globulin Albumin/Globulin Ratio Urine Color Urine Clarity Urine pH Ur Specific [place] Urine Protein Urine Glucose (UA) Urine Ketones Urine Occult Blood Urine Nitrite Urine Bilirubin Urine Urobilinogen Ur Leukocyte Esterase Urine RBC Urine WBC Ur Squamous Epith Cells Urine Bacteria Urine Mucus 12/05/23 12/05/23 12/05/23 09:45 09:45 09:45 WBC Corrected WBC RBC Hgb Hct MCV MCH 28.0 MCHC Cancelled 32.6 RDW Std Deviation Cancelled 42.8 RDW Coeff of Angel Cancelled Plt Count MPV Immature Gran % (Auto) Neut % (Auto) Lymph % (Auto) Dixon % (Auto) Eos % (Auto) Baso % (Auto) Absolute Neuts (auto) Absolute Lymphs (auto) Total Counted Neutrophils % (Manual) Band Neutrophils % Lymphocytes % (Manual) Monocytes % (Manual) Eosinophils % (Manual) Basophils % (Manual) Metamyelocytes % Myelocytes % Promyelocytes % Blast Cells % Plasma Cell % (Manual) Other Cells % Nucleated RBC % Nucleated RBCs/100 WBC Differential Comment Diff Path Review Hypersegmented Neuts Atypical Lymphocytes Reactive Lymphocytes Smudge Cells Toxic Granulation Toxic Vacuolation Dohle Bodies Dell Rods Platelet Estimate Plt Morphology Comment RBC Morphology Polychromasia Hypochromasia Basophilic Stippling Anisocytosis Microcytosis Macrocytosis Spherocytes Sickle Cells Target Cells Tear Drop Cells Ovalocytes Stomatocytes Avendaño-Hulbert Bodies Atiya Cells Bite Cells Crenated Cell Acanthocytes (Spur) Rouleaux Schistocytes ESR Sodium Potassium Chloride Carbon Dioxide Anion Gap BUN Creatinine Estim Creat Clear Calc Est GFR (MDRD) Af Amer Est GFR (MDRD) Non-Af BUN/Creatinine Ratio Glucose Calcium Total Bilirubin AST ALT Alkaline Phosphatase Total Protein Albumin Globulin Albumin/Globulin Ratio Urine Color Urine Clarity Urine pH Ur Specific [place] Urine Protein Urine Glucose (UA) Urine Ketones Urine Occult Blood Urine Nitrite Urine Bilirubin Urine Urobilinogen Ur Leukocyte Esterase Urine RBC Urine WBC Ur Squamous Epith Cells Urine Bacteria Urine Mucus 12/05/23 12/05/23 12/05/23 09:45 09:45 09:45 WBC Corrected WBC RBC Hgb Hct MCV MCH MCHC RDW Std Deviation RDW Coeff of Angel 13.8 Plt Count Cancelled 308 MPV Cancelled 9.3 Immature Gran % (Auto) Cancelled Neut % (Auto) Lymph % (Auto) Dixon % (Auto) Eos % (Auto) Baso % (Auto) Absolute Neuts (auto) Absolute Lymphs (auto) Total Counted Neutrophils % (Manual) Band Neutrophils % Lymphocytes % (Manual) Monocytes % (Manual) Eosinophils % (Manual) Basophils % (Manual) Metamyelocytes % Myelocytes % Promyelocytes % Blast Cells % Plasma Cell % (Manual) Other Cells % Nucleated RBC % Nucleated RBCs/100 WBC Differential Comment Diff Path Review Hypersegmented Neuts Atypical Lymphocytes Reactive Lymphocytes Smudge Cells Toxic Granulation Toxic Vacuolation Dohle Bodies Dell Rods Platelet Estimate Plt Morphology Comment RBC Morphology Polychromasia Hypochromasia Basophilic Stippling Anisocytosis Microcytosis Macrocytosis Spherocytes Sickle Cells Target Cells Tear Drop Cells Ovalocytes Stomatocytes Avendaño-Hulbert Bodies [place] Cells Bite Cells Crenated Cell Acanthocytes (Spur) Rouleaux Schistocytes ESR Sodium Potassium Chloride Carbon Dioxide Anion Gap BUN Creatinine Estim Creat Clear Calc Est GFR (MDRD) Af Amer Est GFR (MDRD) Non-Af BUN/Creatinine Ratio Glucose Calcium Total Bilirubin AST ALT Alkaline Phosphatase Total Protein Albumin Globulin Albumin/Globulin Ratio Urine Color Urine Clarity Urine pH Ur Specific [place] Urine Protein Urine Glucose (UA) Urine Ketones Urine Occult Blood Urine Nitrite Urine Bilirubin Urine Urobilinogen Ur Leukocyte Esterase Urine RBC Urine WBC Ur Squamous Epith Cells Urine Bacteria Urine Mucus 12/05/23 12/05/23 12/05/23 09:45 09:45 09:45 WBC Corrected WBC RBC Hgb Hct MCV MCH MCHC RDW Std Deviation RDW Coeff of Angel Plt Count MPV Immature Gran % (Auto) 0.600 Neut % (Auto) Cancelled 69.1 Lymph % (Auto) Cancelled 19.0 Dixon % (Auto) Cancelled Eos % (Auto) Baso % (Auto) Absolute Neuts (auto) Absolute Lymphs (auto) Total Counted Neutrophils % (Manual) Band Neutrophils % Lymphocytes % (Manual) Monocytes % (Manual) Eosinophils % (Manual) Basophils % (Manual) Metamyelocytes % Myelocytes % Promyelocytes % Blast Cells % Plasma Cell % (Manual) Other Cells % Nucleated RBC % Nucleated RBCs/100 WBC Differential Comment Diff Path Review Hypersegmented Neuts Atypical Lymphocytes Reactive Lymphocytes Smudge Cells Toxic Granulation Toxic Vacuolation Dohle Bodies Dell Rods Platelet Estimate Plt Morphology Comment RBC Morphology Polychromasia Hypochromasia Basophilic Stippling Anisocytosis Microcytosis Macrocytosis Spherocytes Sickle Cells Target Cells Tear Drop Cells Ovalocytes Stomatocytes Avendaño-Hulbert Bodies [place] Cells Bite Cells Crenated Cell Acanthocytes (Spur) Rouleaux Schistocytes ESR Sodium Potassium Chloride Carbon Dioxide Anion Gap BUN Creatinine Estim Creat Clear Calc Est GFR (MDRD) Af Amer Est GFR (MDRD) Non-Af BUN/Creatinine Ratio Glucose Calcium Total Bilirubin AST ALT Alkaline Phosphatase Total Protein Albumin Globulin Albumin/Globulin Ratio Urine Color Urine Clarity Urine pH Ur Specific [place] Urine Protein Urine Glucose (UA) Urine Ketones Urine Occult Blood Urine Nitrite Urine Bilirubin Urine Urobilinogen Ur Leukocyte Esterase Urine RBC Urine WBC Ur Squamous Epith Cells Urine Bacteria Urine Mucus 12/05/23 12/05/2324 09:45 09:45 09:45 WBC Corrected WBC RBC Hgb Hct MCV MCH MCHC RDW Std Deviation RDW Coeff of Angel Plt Count MPV Immature Gran % (Auto) Neut % (Auto) Lymph % (Auto) Dixon % (Auto) 10.6 H Eos % (Auto) Cancelled 0.0 Baso % (Auto) Cancelled 0.7 Absolute Neuts (auto) Cancelled Absolute Lymphs (auto) Total Counted Neutrophils % (Manual) Band Neutrophils % Lymphocytes % (Manual) Monocytes % (Manual) Eosinophils % (Manual) Basophils % (Manual) Metamyelocytes % Myelocytes % Promyelocytes % Blast Cells % Plasma Cell % (Manual) Other Cells % Nucleated RBC % Nucleated RBCs/100 WBC Differential Comment Diff Path Review Hypersegmented Neuts Atypical Lymphocytes Reactive Lymphocytes Smudge Cells Toxic Granulation Toxic Vacuolation Dohle Bodies Dell Rods Platelet Estimate Plt Morphology Comment RBC Morphology Polychromasia Hypochromasia Basophilic Stippling Anisocytosis Microcytosis Macrocytosis Spherocytes Sickle Cells Target Cells Tear Drop Cells Ovalocytes Stomatocytes Avendaño-Hulbert Bodies Atiya Cells Bite Cells Crenated Cell Acanthocytes (Spur) Rouleaux Schistocytes ESR Sodium Potassium Chloride Carbon Dioxide Anion Gap BUN Creatinine Estim Creat Clear Calc Est GFR (MDRD) Af Amer Est GFR (MDRD) Non-Af BUN/Creatinine Ratio Glucose Calcium Total Bilirubin AST ALT Alkaline Phosphatase Total Protein Albumin Globulin Albumin/Globulin Ratio Urine Color Urine Clarity Urine pH Ur Specific [place] Urine Protein Urine Glucose (UA) Urine Ketones Urine Occult Blood Urine Nitrite Urine Bilirubin Urine Urobilinogen Ur Leukocyte Esterase Urine RBC Urine WBC Ur Squamous Epith Cells Urine Bacteria Urine Mucus 12/05/23 12/05/23 12/05/23 09:45 09:45 09:45 WBC Corrected WBC RBC Hgb Hct MCV MCH MCHC RDW Std Deviation RDW Coeff of Angel Plt Count MPV Immature Gran % (Auto) Neut % (Auto) Lymph % (Auto) Dixon % (Auto) Eos % (Auto) Baso % (Auto) Absolute Neuts (auto) 6.2 Absolute Lymphs (auto) Cancelled 1.70 Total Counted Cancelled Neutrophils % (Manual) Cancelled Band Neutrophils % Cancelled Lymphocytes % (Manual) Cancelled Monocytes % (Manual) Cancelled Eosinophils % (Manual) Cancelled Basophils % (Manual) Cancelled Metamyelocytes % Cancelled Myelocytes % Cancelled Promyelocytes % Cancelled Blast Cells % Cancelled Plasma Cell % (Manual) Cancelled Other Cells % Cancelled Nucleated RBC % Cancelled 0 Nucleated RBCs/100 WBC Cancelled Differential Comment Cancelled Diff Path Review Cancelled Hypersegmented Neuts Cancelled Atypical Lymphocytes Cancelled Reactive Lymphocytes Cancelled Smudge Cells Cancelled Toxic Granulation Cancelled Toxic Vacuolation Cancelled Dohle Bodies Cancelled Dell Rods Cancelled Platelet Estimate Cancelled Plt Morphology Comment Cancelled RBC Morphology Cancelled Polychromasia Hypochromasia Basophilic Stippling Anisocytosis Microcytosis Macrocytosis Spherocytes Sickle Cells Target Cells Tear Drop Cells Ovalocytes Stomatocytes Avendaño-Hulbert Bodies Atiya Cells Bite Cells Crenated Cell Acanthocytes (Spur) Rouleaux Schistocytes ESR Sodium Potassium Chloride Carbon Dioxide Anion Gap BUN Creatinine Estim Creat Clear Calc Est GFR (MDRD) Af Amer Est GFR (MDRD) Non-Af BUN/Creatinine Ratio Glucose Calcium Total Bilirubin AST ALT Alkaline Phosphatase Total Protein Albumin Globulin Albumin/Globulin Ratio Urine Color Urine Clarity Urine pH Ur Specific [place] Urine Protein Urine Glucose (UA) Urine Ketones Urine Occult Blood Urine Nitrite Urine Bilirubin Urine Urobilinogen Ur Leukocyte Esterase Urine RBC Urine WBC Ur Squamous Epith Cells Urine Bacteria Urine Mucus 12/05/23 12/05/23 12/05/23 09:45 09:45 09:45 WBC Corrected WBC RBC Hgb Hct MCV MCH MCHC RDW Std Deviation RDW Coeff of Angel Plt Count MPV Immature Gran % (Auto) Neut % (Auto) Lymph % (Auto) [place] % (Auto) Eos % (Auto) Baso % (Auto) Absolute Neuts (auto) Absolute Lymphs (auto) Total Counted Neutrophils % (Manual) Band Neutrophils % Lymphocytes % (Manual) Monocytes % (Manual) Eosinophils % (Manual) Basophils % (Manual) Metamyelocytes % Myelocytes % Promyelocytes % Blast Cells % Plasma Cell % (Manual) Other Cells % Nucleated RBC % Nucleated RBCs/100 WBC Differential Comment Diff Path Review Hypersegmented Neuts Atypical Lymphocytes Reactive Lymphocytes Smudge Cells Toxic Granulation Toxic Vacuolation Dohle Bodies Dell Rods Platelet Estimate Plt Morphology Comment RBC Morphology Cancelled Polychromasia Cancelled Hypochromasia Cancelled Basophilic Stippling Cancelled Anisocytosis Cancelled Microcytosis Cancelled Macrocytosis Cancelled Spherocytes Cancelled Sickle Cells Cancelled Target Cells Cancelled Tear Drop Cells Cancelled Ovalocytes Cancelled Stomatocytes Cancelled Avendaño-Hulbert Bodies Cancelled [place] Cells Cancelled Bite Cells Cancelled Crenated Cell Cancelled Acanthocytes (Spur) Cancelled Rouleaux Cancelled Schistocytes Cancelled ESR 12 Sodium 135 L Cancelled Potassium 4.1 Cancelled Chloride 104 Carbon Dioxide Anion Gap BUN Creatinine Estim Creat Clear Calc Est GFR (MDRD) Af Amer Est GFR (MDRD) Non-Af BUN/Creatinine Ratio Glucose Calcium Total Bilirubin AST ALT Alkaline Phosphatase Total Protein Albumin Globulin Albumin/Globulin Ratio Urine Color Urine Clarity Urine pH Ur Specific [place] Urine Protein Urine Glucose (UA) Urine Ketones Urine Occult Blood Urine Nitrite Urine Bilirubin Urine Urobilinogen Ur Leukocyte Esterase Urine RBC Urine WBC Ur Squamous Epith Cells Urine Bacteria Urine Mucus 12/05/23 12/05/23 12/05/23 09:45 09:45 09:45 WBC Corrected WBC RBC Hgb Hct MCV MCH MCHC RDW Std Deviation RDW Coeff of Angel Plt Count MPV Immature Gran % (Auto) Neut % (Auto) Lymph % (Auto) [place] % (Auto) Eos % (Auto) Baso % (Auto) Absolute Neuts (auto) Absolute Lymphs (auto) Total Counted Neutrophils % (Manual) Band Neutrophils % Lymphocytes % (Manual) Monocytes % (Manual) Eosinophils % (Manual) Basophils % (Manual) Metamyelocytes % Myelocytes % Promyelocytes % Blast Cells % Plasma Cell % (Manual) Other Cells % Nucleated RBC % Nucleated RBCs/100 WBC Differential Comment Diff Path Review Hypersegmented Neuts Atypical Lymphocytes Reactive Lymphocytes Smudge Cells Toxic Granulation Toxic Vacuolation Dohle Bodies Dell Rods Platelet Estimate Plt Morphology Comment RBC Morphology Polychromasia Hypochromasia Basophilic Stippling Anisocytosis Microcytosis Macrocytosis Spherocytes Sickle Cells Target Cells Tear Drop Cells Ovalocytes Stomatocytes Avendaño-Hulbert Bodies [place] Cells Bite Cells Crenated Cell Acanthocytes (Spur) Rouleaux Schistocytes ESR Sodium Potassium Chloride Cancelled Carbon Dioxide 27.0 Cancelled Anion Gap 4 L Cancelled BUN 13 Creatinine Estim Creat Clear Calc Est GFR (MDRD) Af Amer Est GFR (MDRD) Non-Af BUN/Creatinine Ratio Glucose Calcium Total Bilirubin AST ALT Alkaline Phosphatase Total Protein Albumin Globulin Albumin/Globulin Ratio Urine Color Urine Clarity Urine pH Ur Specific [place] Urine Protein Urine Glucose (UA) Urine Ketones Urine Occult Blood Urine Nitrite Urine Bilirubin Urine Urobilinogen Ur Leukocyte Esterase Urine RBC Urine WBC Ur Squamous Epith Cells Urine Bacteria Urine Mucus 12/05/23 12/05/23 12/05/23 09:45 09:45 09:45 WBC Corrected WBC RBC Hgb Hct MCV MCH MCHC RDW Std Deviation RDW Coeff of Angel Plt Count MPV Immature Gran % (Auto) Neut % (Auto) Lymph % (Auto) [place] % (Auto) Eos % (Auto) Baso % (Auto) Absolute Neuts (auto) Absolute Lymphs (auto) Total Counted Neutrophils % (Manual) Band Neutrophils % Lymphocytes % (Manual) Monocytes % (Manual) Eosinophils % (Manual) Basophils % (Manual) Metamyelocytes % Myelocytes % Promyelocytes % Blast Cells % Plasma Cell % (Manual) Other Cells % Nucleated RBC % Nucleated RBCs/100 WBC Differential Comment Diff Path Review Hypersegmented Neuts Atypical Lymphocytes Reactive Lymphocytes Smudge Cells Toxic Granulation Toxic Vacuolation Dohle Bodies Dell Rods Platelet Estimate Plt Morphology Comment RBC Morphology Polychromasia Hypochromasia Basophilic Stippling Anisocytosis Microcytosis Macrocytosis Spherocytes Sickle Cells Target Cells Tear Drop Cells Ovalocytes Stomatocytes Avendaño-Hulbert Bodies [place] Cells Bite Cells Crenated Cell Acanthocytes (Spur) Rouleaux Schistocytes ESR Sodium Potassium Chloride Carbon Dioxide Anion Gap BUN Cancelled Creatinine 1.05 Cancelled Estim Creat Clear Calc 115.44 Cancelled Est GFR (MDRD) Af Amer 103 Est GFR (MDRD) Non-Af BUN/Creatinine Ratio Glucose Calcium Total Bilirubin AST ALT Alkaline Phosphatase Total Protein Albumin Globulin Albumin/Globulin Ratio Urine Color Urine Clarity Urine pH Ur Specific [place] Urine Protein Urine Glucose (UA) Urine Ketones Urine Occult Blood Urine Nitrite Urine Bilirubin Urine Urobilinogen Ur Leukocyte Esterase Urine RBC Urine WBC Ur Squamous Epith Cells Urine Bacteria Urine Mucus 12/05/23 12/05/23 12/05/23 09:45 09:45 09:45 WBC Corrected WBC RBC Hgb Hct MCV MCH MCHC RDW Std Deviation RDW Coeff of Angel Plt Count MPV Immature Gran % (Auto) Neut % (Auto) Lymph % (Auto) [place] % (Auto) Eos % (Auto) Baso % (Auto) Absolute Neuts (auto) Absolute Lymphs (auto) Total Counted Neutrophils % (Manual) Band Neutrophils % Lymphocytes % (Manual) Monocytes % (Manual) Eosinophils % (Manual) Basophils % (Manual) Metamyelocytes % Myelocytes % Promyelocytes % Blast Cells % Plasma Cell % (Manual) Other Cells % Nucleated RBC % Nucleated RBCs/100 WBC Differential Comment Diff Path Review Hypersegmented Neuts Atypical Lymphocytes Reactive Lymphocytes Smudge Cells Toxic Granulation Toxic Vacuolation Dohle Bodies Dell Rods Platelet Estimate Plt Morphology Comment RBC Morphology Polychromasia Hypochromasia Basophilic Stippling Anisocytosis Microcytosis Macrocytosis Spherocytes Sickle Cells Target Cells Tear Drop Cells Ovalocytes Stomatocytes Avendaño-Hulbert Bodies Atiya Cells Bite Cells Crenated Cell Acanthocytes (Spur) Rouleaux Schistocytes ESR Sodium Potassium Chloride Carbon Dioxide Anion Gap BUN Creatinine Estim Creat Clear Calc Est GFR (MDRD) Af Amer Cancelled Est GFR (MDRD) Non-Af 85 Cancelled BUN/Creatinine Ratio 12.4 Cancelled Glucose 103 Calcium Total Bilirubin AST ALT Alkaline Phosphatase Total Protein Albumin Globulin Albumin/Globulin Ratio Urine Color Urine Clarity Urine pH Ur Specific [place] Urine Protein Urine Glucose (UA) Urine Ketones Urine Occult Blood Urine Nitrite Urine Bilirubin Urine Urobilinogen Ur Leukocyte Esterase Urine RBC Urine WBC Ur Squamous Epith Cells Urine Bacteria Urine Mucus 12/05/23 12/05/23 12/05/23 09:45 09:45 09:45 WBC Corrected WBC RBC Hgb Hct MCV MCH MCHC RDW Std Deviation RDW Coeff of Angel Plt Count MPV Immature Gran % (Auto) Neut % (Auto) Lymph % (Auto) Dixon % (Auto) Eos % (Auto) Baso % (Auto) Absolute Neuts (auto) Absolute Lymphs (auto) Total Counted Neutrophils % (Manual) Band Neutrophils % Lymphocytes % (Manual) Monocytes % (Manual) Eosinophils % (Manual) Basophils % (Manual) Metamyelocytes % Myelocytes % Promyelocytes % Blast Cells % Plasma Cell % (Manual) Other Cells % Nucleated RBC % Nucleated RBCs/100 WBC Differential Comment Diff Path Review Hypersegmented Neuts Atypical Lymphocytes Reactive Lymphocytes Smudge Cells Toxic Granulation Toxic Vacuolation Dohle Bodies Dell Rods Platelet Estimate Plt Morphology Comment RBC Morphology Polychromasia Hypochromasia Basophilic Stippling Anisocytosis Microcytosis Macrocytosis Spherocytes Sickle Cells Target Cells Tear Drop Cells Ovalocytes Stomatocytes Avendaño-Hulbert Bodies [place] Cells Bite Cells Crenated Cell Acanthocytes (Spur) Rouleaux Schistocytes ESR Sodium Potassium Chloride Carbon Dioxide Anion Gap BUN Creatinine Estim Creat Clear Calc Est GFR (MDRD) Af Amer Est GFR (MDRD) Non-Af BUN/Creatinine Ratio Glucose Cancelled Calcium 8.9 Cancelled Total Bilirubin 1.00 Cancelled AST 12 L ALT Alkaline Phosphatase Total Protein Albumin Globulin Albumin/Globulin Ratio Urine Color Urine Clarity Urine pH Ur Specific [place] Urine Protein Urine Glucose (UA) Urine Ketones Urine Occult Blood Urine Nitrite Urine Bilirubin Urine Urobilinogen Ur Leukocyte Esterase Urine RBC Urine WBC Ur Squamous Epith Cells Urine Bacteria Urine Mucus 12/05/23 12/05/23 12/05/23 09:45 09:45 09:45 WBC Corrected WBC RBC Hgb Hct MCV MCH MCHC RDW Std Deviation RDW Coeff of Angel Plt Count MPV Immature Gran % (Auto) Neut % (Auto) Lymph % (Auto) Dixon % (Auto) Eos % (Auto) Baso % (Auto) Absolute Neuts (auto) Absolute Lymphs (auto) Total Counted Neutrophils % (Manual) Band Neutrophils % Lymphocytes % (Manual) Monocytes % (Manual) Eosinophils % (Manual) Basophils % (Manual) Metamyelocytes % Myelocytes % Promyelocytes % Blast Cells % Plasma Cell % (Manual) Other Cells % Nucleated RBC % Nucleated RBCs/100 WBC Differential Comment Diff Path Review Hypersegmented Neuts Atypical Lymphocytes Reactive Lymphocytes Smudge Cells Toxic Granulation Toxic Vacuolation Dohle Bodies Dell Rods Platelet Estimate Plt Morphology Comment RBC Morphology Polychromasia Hypochromasia Basophilic Stippling Anisocytosis Microcytosis Macrocytosis Spherocytes Sickle Cells Target Cells Tear Drop Cells Ovalocytes Stomatocytes Avendaño-Hulbert Bodies [place] Cells Bite Cells Crenated Cell Acanthocytes (Spur) Rouleaux Schistocytes ESR Sodium Potassium Chloride Carbon Dioxide Anion Gap BUN Creatinine Estim Creat Clear Calc Est GFR (MDRD) Af Amer Est GFR (MDRD) Non-Af BUN/Creatinine Ratio Glucose Calcium Total Bilirubin AST Cancelled ALT 15 L Cancelled Alkaline Phosphatase 80 Cancelled Total Protein 7.1 Albumin Globulin Albumin/Globulin Ratio Urine Color Urine Clarity Urine pH Ur Specific [place] Urine Protein Urine Glucose (UA) Urine Ketones Urine Occult Blood Urine Nitrite Urine Bilirubin Urine Urobilinogen Ur Leukocyte Esterase Urine RBC Urine WBC Ur Squamous Epith Cells Urine Bacteria Urine Mucus 12/05/23 12/05/23 12/05/23 09:45 09:45 09:45 WBC Corrected WBC RBC Hgb Hct MCV MCH MCHC RDW Std Deviation RDW Coeff of Angel Plt Count MPV Immature Gran % (Auto) Neut % (Auto) Lymph % (Auto) [place] % (Auto) Eos % (Auto) Baso % (Auto) Absolute Neuts (auto) Absolute Lymphs (auto) Total Counted Neutrophils % (Manual) Band Neutrophils % Lymphocytes % (Manual) Monocytes % (Manual) Eosinophils % (Manual) Basophils % (Manual) Metamyelocytes % Myelocytes % Promyelocytes % Blast Cells % Plasma Cell % (Manual) Other Cells % Nucleated RBC % Nucleated RBCs/100 WBC Differential Comment Diff Path Review Hypersegmented Neuts Atypical Lymphocytes Reactive Lymphocytes Smudge Cells Toxic Granulation Toxic Vacuolation Dohle Bodies Dell Rods Platelet Estimate Plt Morphology Comment RBC Morphology Polychromasia Hypochromasia Basophilic Stippling Anisocytosis Microcytosis Macrocytosis Spherocytes Sickle Cells Target Cells Tear Drop Cells Ovalocytes Stomatocytes Avendaño-Hulbert Bodies [place] Cells Bite Cells Crenated Cell Acanthocytes (Spur) Rouleaux Schistocytes ESR Sodium Potassium Chloride Carbon Dioxide Anion Gap BUN Creatinine Estim Creat Clear Calc Est GFR (MDRD) Af Amer Est GFR (MDRD) Non-Af BUN/Creatinine Ratio Glucose Calcium Total Bilirubin AST ALT Alkaline Phosphatase Total Protein Cancelled Albumin 3.1 L Cancelled Globulin 4.0 Cancelled Albumin/Globulin Ratio 0.8 L Urine Color Urine Clarity Urine pH Ur Specific [place] Urine Protein Urine Glucose (UA) Urine Ketones Urine Occult Blood Urine Nitrite Urine Bilirubin Urine Urobilinogen Ur Leukocyte Esterase Urine RBC Urine WBC Ur Squamous Epith Cells Urine Bacteria Urine Mucus 12/05/23 12/05/23 09:45 10:00 WBC Corrected WBC RBC Hgb Hct MCV MCH MCHC RDW Std Deviation RDW Coeff of Angel Plt Count MPV Immature Gran % (Auto) Neut % (Auto) Lymph % (Auto) Dixon % (Auto) Eos % (Auto) Baso % (Auto) Absolute Neuts (auto) Absolute Lymphs (auto) Total Counted Neutrophils % (Manual) Band Neutrophils % Lymphocytes % (Manual) Monocytes % (Manual) Eosinophils % (Manual) Basophils % (Manual) Metamyelocytes % Myelocytes % Promyelocytes % Blast Cells % Plasma Cell % (Manual) Other Cells % Nucleated RBC % Nucleated RBCs/100 WBC Differential Comment Diff Path Review Hypersegmented Neuts Atypical Lymphocytes Reactive Lymphocytes Smudge Cells Toxic Granulation Toxic Vacuolation Dohle Bodies Dell Rods Platelet Estimate Plt Morphology Comment RBC Morphology Polychromasia Hypochromasia Basophilic Stippling Anisocytosis Microcytosis Macrocytosis Spherocytes Sickle Cells Target Cells Tear Drop Cells Ovalocytes Stomatocytes Avendaño-Hulbert Bodies Atiya Cells Bite Cells Crenated Cell Acanthocytes (Spur) Rouleaux Schistocytes ESR Sodium Potassium Chloride Carbon Dioxide Anion Gap BUN Creatinine Estim Creat Clear Calc Est GFR (MDRD) Af Amer Est GFR (MDRD) Non-Af BUN/Creatinine Ratio Glucose Calcium Total Bilirubin AST ALT Alkaline Phosphatase Total Protein Albumin Globulin Albumin/Globulin Ratio Cancelled Urine Color Brandy Urine Clarity Clear Urine pH 5.0 Ur Specific [place] 1.025 Urine Protein 30 H Urine Glucose (UA) Normal Urine Ketones 15 H Urine Occult Blood 10 H Urine Nitrite Positive H Urine Bilirubin 1 H Urine Urobilinogen 4 H Ur Leukocyte Esterase 25 H Urine RBC 0 SEEN Urine WBC 0-5 SEEN Ur Squamous Epith Cells 0 SEEN Urine Bacteria 1+ Urine Mucus 0 SEEN Radiography Diagnostic Testing: Clinical Impression(s) from Imaging Studies Abdomen/Pelvis CT 12/05/23 09:42 IMPRESSION: 1. Trace of free fluid in the pelvis. 2. No focal acute inflammatory process. 3. The appendix is identified and difficult to evaluate. 4. Borderline hepatosplenomegaly. Electronically Signed: Benton Macias MD at 10:59 EDT , Abdomen CT 12/05/23 12:28 IMPRESSION: 1. Minimal fluid near the lower edge of the liver and right lower quadrant. 2. The appendix could not be definitely identified. 3. Otherwise no focal acute inflammatory process. Electronically Signed: Benton Macias MD at 14:19 EDT , Discharge Plan Triage Chief Complaint: Abd Pain ED Provider: Flor Carbajal Dx/Rx/DC Orders Clinical Impression: Abdominal pain Prescriptions: No Action NK Primary Care Provider: Nori Joneszman Referrals: Care Physician,No Primary [Non-Staff] -
[2023-12-05 10:00] LABS: Absolute Neutrophil Count 6.2 X10^3/uL (2.0-7.7); Basophil# 0.06 X10^3/uL; Basophil% 0.7 % (0-1); Hematocrit 41.7 % (40-54); Hemoglobin 13.6 g/dL (13.0-16.5); Mean Corp Hgb Conc 32.6 g/dL (32-36); Mean Platelet Vol. 9.3 fl (6.2-12.0); Monocyte# 0.95 X10^3/uL; Monocyte% 10.6 % (0-10); NRBC Flagged by Analyzer 0 % (0-5); Neutrophil # 6.17 X10^3/uL (2.7-7.7); Neutrophil % 69.1 % (47-70); Platelet Count 308 K/mm3 (150-450); RBC Distribution Width CV 13.8 % (11.6-14.6); RBC Distribution Width SD 42.8 fl (35.1-43.9); Red Blood Count 4.85 M/mm3 (4.6-6.2); White Blood Count 8.9 K/mm3 (4.4-11.0)
[2023-12-05 10:12] LABS: ALB/GLOB Ratio 0.8 RATIO (0.9-2.4); AST(SGOT) 12 U/L (15-37); Alanine Aminotransfer ALT/SGPT 15 U/L (16-61); Albumin, Serum 3.1 g/dL (3.2-5.0); Alkaline Phosphatase 80 U/L (45-117); Anion Gap 4 (5-15); BUN 13 mg/dL (7-18); BUN/Creat Ratio 12.4 RATIO (10-20); Calcium,Total 8.9 mg/dL (8.5-10.1); Chloride 104 mmol/L (98-107); Creatinine, Serum 1.05 mg/dL (0.70-1.30); EST Glomerular Filtration Rate 85 mL/min (>60); Est Glom Filt Rate - Afr Amer 103 mL/min (>60); Estimated Creatinine Clearance 115.44 ml/min; Glucose 103 mg/dL (74-106); Potassium 4.1 mmol/L (3.5-5.1); Protein, Total 7.1 g/dL (6.4-8.2); Sodium Level 135 mmol/L (136-145)
[2023-12-05] MEDS: Morphine 4 MG/ML Syringe IV (10:16)
[2023-12-05] MEDS: Ondansetron 4 MG/2 ML Vial IV (10:16)
[2023-12-05] MEDS: 0.9% Normal Saline (1000mL) 1,000 ML 125 ML IV ×3 (10:18→22:10)
[2023-12-05 10:24] LABS: Mucous, Urine 0 SEEN /hpf (<or=2+); Red Blood Cells-Urine 0 SEEN /hpf (0-5); Squamous Epithelial Cells - UA 0 SEEN /hpf (0-5)
[2023-12-05 10:29] LABS: Color, Urine Amber (Yellow); Glucose, Dipstick Normal (Normal); Ketone-Dipstick 15 mg/dl (Negative); Leukocyte Esterase-Dipstick 25 /ul (Negative); Nitrite-Dipstick Positive (Negative); Occult Blood-Urine 10 /ul (Negative); Protein-Dipstick 30 mg/dl (Negative); Specific Gravity, Urine 1.025 (1.002-1.030); Urine Clarity Clear (Clear); Urine Urobilinogen 4 mg/dl (Normal)
[2023-12-05 10:33] LABS: Urine Bilirubin Dipstick 1 mg/dL (Negative)
[2023-12-05 10:38] LABS: Bacteria 1+ /hpf (None Seen); White Blood Cells 0-5 SEEN /hpf (0-5)
--- NOTE | 2023-12-05 12:28 | CT_ITS ---
INDICATION: abdominal pain EXAMINATION: CT ABDOMEN AND PELVIS WITHOUT CONTRAST TECHNIQUE: Helically acquired images were obtained of the abdomen and pelvis without oral or IV contrast. A radiation dose optimization technique was used for this scan. IV Contrast dosage and agent: None. Oral contrast: None. RADIATION DOSAGE (If Supplied By Facility): CTDIvol = ( 7.66 ) mGy, DLP = ( 424.89 ) mGycm COMPARISON: Comparison is made with the previous examination of the same date done earlier. FINDINGS: LOWER CHEST: Atelectatic changes in the lung bases. No cardiomegaly or pericardial effusion. LIVER: Homogeneous. No focal mass. GALLBLADDER AND BILIARY TREE: No calcified gallstones. No gallbladder distension or wall edema. No intra- or extrahepatic biliary ductal dilation. PANCREAS: No focal cystic or solid mass. SPLEEN: Normal size without focal cystic or solid mass. ADRENAL GLANDS: No nodules. KIDNEYS AND URETERS: Normal renal size and position. No hydronephrosis. PERITONEUM: Mild fluid inferior to the lower edge of the liver and right lower quadrant. No other fluid collection. BOWEL: The appendix again could not be definitely identified. No stomach or bowel distension. No focal inflammatory change. LYMPH NODES: No enlarged mesenteric or retroperitoneal lymph nodes. VESSELS: Aorta is non-dilated. URINARY BLADDER: Unremarkable. REPRODUCTIVE ORGANS: No pelvic masses. ABDOMINAL WALL: No discrete abdominal or pelvic wall hernia. BONES: Unchanged. CT/Abdomen/Pel W ORAL Cont Only IMPRESSION: 1. Minimal fluid near the lower edge of the liver and right lower quadrant. 2. The appendix could not be definitely identified. 3. Otherwise no focal acute inflammatory process. Electronically Signed: Benton Macias MD at 14:19 EDT ,
[2023-12-05 13:42] LABS: Erythrocyte Sedimentation Rate 12 mm/hr (0-20)
--- NOTE | 2023-12-05 15:11 | US_ITS ---
ACR Level 3 findings have been noted. An addendum which confirms receipt of the report will follow. INDICATION: abdominal pain EXAMINATION: US Abdomen RUQ (limited) TECHNIQUE: Woodson-scale and color Doppler imaging was performed of the right upper abdominal quadrant. COMPARISON: None. Findings: The liver is homogenous and normal in echogenicity and echotexture. There is no evidence of contour nodularity. No focal hepatic mass is identified. The main portal vein is normal in size and patent demonstrating hepatopetal flow. The gallbladder has a mildly thickened wall of 3.5 mm. There are no stones present. There is a 4 mm polyp.. Sonographic Elliott''s tenderness is appreciated. There is no evidence of intrahepatic biliary ductal dilatation. The CBD is nondilated measuring 4 mm at the level of the susan hepatis. The visualized portions of the pancreas are unremarkable without evidence of focal or diffuse enlargement. Specifically, the tail is obscured by overlying bowel gas. Right kidney measures 10.8 cm in length. It is normal in echogenicity. No focal renal lesion is identified. There is no evidence of hydronephrosis. US/Abdomen Limited IMPRESSION: Findings suspicious for acute acalculous cholecystitis. Consider nuclear medicine HIDA scan for confirmation. 4 mm gallbladder wall polyp. Electronically Signed: Mono Schulte MD at 17:49 EDT ,
--- NOTE | 2023-12-05 15:13 | HP.PCM.SX_ITS ---
HPI - General HPI Narrative KATALINA HAWLEY, is a 38 M who presents with abdominal pain of 4-day duration. Patient says that the pain started 4 days ago and it goes from his mid right chest down to his mid right abdomen. He says it also radiates to the back. He says he gets nauseated if he coughs a lot. He has been having a worsening cough for the last week. He also reports that he has not had any vomiting. He said he had a bloody bowel movement yesterday with bright red blood in it. He says this does not normally happen. He says the pain comes and goes and is not constant. He denies fevers or chills. He denies migration of pain. [facility] Home Medications NK 12/05/23 [History Last Taken Unknown] Allergy/AdvReac Type Severity Reaction Status Date / Time bee venom protein (honey bee) Allergy Severe Anaphylaxis Verified 12/05/23 09:23 guaifenesin [From Robitussin] Allergy THROAT Verified 12/05/23 09:23 SWELLING Penicillins Allergy THROAT Verified 12/05/23 09:23 SWELLING Social History household members: family Smoking Status: Current every day smoker tobacco type: cigarettes alcohol intake: current ROS Constitutional Constitutional: Denies anorexia, chills, fatigue or fever(s) Eyes Eyes: Denies blurry vision ENT HEENT: Denies abnormal hearing Cardiovascular Cardiovascular: Denies chest pain Respiratory/Chest Respiratory/Chest: Reports cough; Denies dyspnea Gastrointestinal Gastrointestinal: Reports abdominal pain, hematochezia and nausea; Denies coffee ground emesis or vomiting Genitourinary Genitourinary: Denies change in urinary stream or difficulty urinating Musculoskeletal Musculoskeletal: Denies abnormal gait Integumentary Integumentary: Denies jaundice Neurologic Neurologic: Denies dizziness Psychiatric Psychiatric: Denies anxiety Endocrine Endocrinology: Denies heat intolerance Vital Signs Vital Signs Vital Signs: 12/05/23 09:23 12/05/23 13:22 Temperature 97.9 F Temperature Source Temporal Pulse Rate 66 74 Respiratory Rate 18 14 Blood Pressure 122/65 H 120/79 Blood Pressure Mean 84 92 Pulse Ox 98 99 Oxygen Delivery Method Room Air Room Air Weight Weight: 185 lb Body Mass Index (BMI) 22.5 Physical Exam Const oriented x3 and no apparent distress Resp normal respiratory effort Cardio regular rate and regular rhythm GI soft to palpation Inspection: Negative for abdominal distention Palpation: tender RUQ Extremity normal to inspection Results Lab / Micro Data 12/05/23 09:45 12/05/23 09:45 Labs: Laboratory Results - last 24 hr 12/05/23 09:45: WBC Cancelled 12/05/23 09:45: WBC 8.9, Corrected WBC Cancelled, RBC Cancelled 12/05/23 09:45: RBC 4.85, Hgb Cancelled 12/05/23 09:45: Hgb 13.6, Hct Cancelled 12/05/23 09:45: Hct 41.7, MCV Cancelled 12/05/23 09:45: MCV 86.0, MCH Cancelled 12/05/23 09:45: MCH 28.0, MCHC Cancelled 12/05/23 09:45: MCHC 32.6, RDW Std Deviation Cancelled 12/05/23 09:45: RDW Std Deviation 42.8, RDW Coeff of Angel Cancelled 12/05/23 09:45: RDW Coeff of Angel 13.8, Plt Count Cancelled 12/05/23 09:45: Plt Count 308, MPV Cancelled 12/05/23 09:45: MPV 9.3, Immature Gran % (Auto) Cancelled 12/05/23 09:45: Immature Gran % (Auto) 0.600, Neut % (Auto) Cancelled 12/05/23 09:45: Neut % (Auto) 69.1, Lymph % (Auto) Cancelled 12/05/23 09:45: Lymph % (Auto) 19.0, [place] % (Auto) Cancelled 12/05/23 09:45: [place] % (Auto) 10.6 H, Eos % (Auto) Cancelled 12/05/23 09:45: Eos % (Auto) 0.0, Baso % (Auto) Cancelled 12/05/23 09:45: Baso % (Auto) 0.7, Absolute Neuts (auto) Cancelled 12/05/23 09:45: Absolute Neuts (auto) 6.2, Absolute Lymphs (auto) Cancelled 12/05/23 09:45: Absolute Lymphs (auto) 1.70, Total Counted Cancelled, Neutrophils % (Manual) Cancelled, Band Neutrophils % Cancelled, Lymphocytes % (Manual) Cancelled, Monocytes % (Manual) Cancelled, Eosinophils % (Manual) Cancelled, Basophils % (Manual) Cancelled, Metamyelocytes % Cancelled, Myelocytes % Cancelled, Promyelocytes % Cancelled, Blast Cells % Cancelled, Plasma Cell % (Manual) Cancelled, Other Cells % Cancelled, Nucleated RBC % Cancelled 12/05/23 09:45: Nucleated RBC % 0, Nucleated RBCs/100 WBC Cancelled, Different ial Comment Cancelled, Diff Path Review Cancelled, Hypersegmented Neuts Cancelled, Atypical Lymphocytes Cancelled, Reactive Lymphocytes Cancelled, Smudge Cells Cancelled, Toxic Granulation Cancelled, Toxic Vacuolation Cancelled, Dohle Bodies Cancelled, Dell Rods Cancelled, Platelet Estimate Cancelled, Plt Morphology Comment Cancelled, RBC Morphology Cancelled 12/05/23 09:45: RBC Morphology Cancelled, Polychromasia Cancelled, Hypochromasia Cancelled, Basophilic Stippling Cancelled, Anisocytosis Cancelled, Microcytosis Cancelled, Macrocytosis Cancelled, Spherocytes Cancelled, Sickle Cells Cancelled, Target Cells Cancelled, Tear Drop Cells Cancelled, Ovalocytes Cancelled, Stomatocytes Cancelled, Avendaño-Worthing Bodies Cancelled, Atiya Cells Cancelled, Bite Cells Cancelled, Crenated Cell Cancelled, Acanthocytes (Spur) Cancelled, Rouleaux Cancelled, Schistocytes Cancelled, ESR 12, Sodium 135 L 12/05/23 09:45: Sodium Cancelled, Potassium 4.1 12/05/23 09:45: Potassium Cancelled, Chloride 104 12/05/23 09:45: Chloride Cancelled, Carbon Dioxide 27.0 12/05/23 09:45: Carbon Dioxide Cancelled, Anion Gap 4 L 12/05/23 09:45: Anion Gap Cancelled, BUN 13 12/05/23 09:45: BUN Cancelled, Creatinine 1.05 12/05/23 09:45: Creatinine Cancelled, Estim Creat Clear Calc 115.44 12/05/23 09:45: Estim Creat Clear Calc Cancelled, Est GFR (MDRD) Af Amer 103 12/05/23 09:45: Est GFR (MDRD) Af Amer Cancelled, Est GFR (MDRD) Non-Af 85 12/05/23 09:45: Est GFR (MDRD) Non-Af Cancelled, BUN/Creatinine Ratio 12.4 12/05/23 09:45: BUN/Creatinine Ratio Cancelled, Glucose 103 12/05/23 09:45: Glucose Cancelled, Calcium 8.9 12/05/23 09:45: Calcium Cancelled, Total Bilirubin 1.00 12/05/23 09:45: Total Bilirubin Cancelled, AST 12 L 12/05/23 09:45: AST Cancelled, ALT 15 L 12/05/23 09:45: ALT Cancelled, Alkaline Phosphatase 80 12/05/23 09:45: Alkaline Phosphatase Cancelled, C-React Prot Ext Range 88.00 H, Total Protein 7.1 12/05/23 09:45: Total Protein Cancelled, Albumin 3.1 L 12/05/23 09:45: Albumin Cancelled, Globulin 4.0 12/05/23 09:45: Globulin Cancelled, Albumin/Globulin Ratio 0.8 L 12/05/23 09:45: Albumin/Globulin Ratio Cancelled 12/05/23 10:00: Urine Color Brandy, Urine Clarity Clear, Urine pH 5.0, Ur Specific [place] 1.025, Urine Protein 30 H, Urine Glucose (UA) Normal, Urine Ketones 15 H, Urine Occult Blood 10 H, Urine Nitrite Positive H, Urine Bilirubin 1 H, Urine Urobilinogen 4 H, Ur Leukocyte Esterase 25 H, Urine RBC 0 SEEN, Urine WBC 0-5 SEEN, Ur Squamous Epith Cells 0 SEEN, Urine Bacteria 1+, Urine Mucus 0 SEEN Imaging Radiology Impression Abdomen/Pelvis CT 12/05/23 09:42 IMPRESSION: 1. Trace of free fluid in the pelvis. 2. No focal acute inflammatory process. 3. The appendix is identified and difficult to evaluate. 4. Borderline hepatosplenomegaly. Electronically Signed: Benton Macias MD at 10:59 EDT , Abdomen CT 12/05/23 12:28 IMPRESSION: 1. Minimal fluid near the lower edge of the liver and right lower quadrant. 2. The appendix could not be definitely identified. 3. Otherwise no focal acute inflammatory process. Electronically Signed: Benton Macias MD at 14:19 EDT , Assessment & Plan Assessment/Plan (1) Abdominal pain: QUALIFIERS: Abdominal location: right upper quadrant Qualified Code(s): R10.11 - Right upper quadrant pain PLAN: Patient presents with abdominal pain of 4-day duration. He says the pain is going from his right flank down to his right mid abdomen. He says has been going on for 4 days and it comes and goes. It radiates to the back. He denies fevers or chills. I was called because the patient had 2 CT scans that did not identify the appendix. I discussed Eaton score with him and went through the entire thing. He says he is having some right lower quadrant tenderness but to me it seems little higher than right lower quadrant. He has been afebrile with no rebound tenderness. He is not having anorexia and he has been tolerating soda and eating. He has some nausea but only when he is coughing a lot and he just got over bronchitis but no vomiting. He has had no migration of pain. He has a normal white count with no left shift. By my count the patient has an Eaton score of 4 and is unlikely appendicitis. He does seem to have some pain a little bit higher than I would expect for appendicitis and this could be gallbladder. I recommended a gallbladder ultrasound to evaluate. Julien Alcaraz MD Pager: [facility] [address] [place] [address], [address] [place] [address] Office:
[2023-12-05] MEDS: metroNIDAZOLE 500 MG/100 ML BAG 100 MG IV (22:25)
[2023-12-05] MEDS: Ciprofloxacin 400 MG/200 ML BAG 200 MG IV (23:30)
[2023-12-06] VITALS (8 sets, daily range): BP systolic 102–144; BP diastolic 52–81; PULSE 61–82; RESP 14–18; TEMP 36.3–36.9; O2SAT 91–97; BMI 22.2
[2023-12-06 06:26] LABS: Absolute Lymphocyte Count 0.99 X10^3/uL (0.83-4.51); Absolute Neutrophil Count 3.8 X10^3/uL (2.0-7.7); Basophil# 0.03 X10^3/uL; Basophil% 0.5 % (0-1); Hematocrit 41.4 % (40-54); Hemoglobin 13.7 g/dL (13.0-16.5); Lymphocyte # 0.99 X10^3/ul (0.83-4.51); Mean Corp Hgb Conc 33.1 g/dL (32-36); Mean Corpuscular Hgb 28.4 pg (27.0-32.0); Mean Corpuscular Volume 85.9 fL (80-94); Mean Platelet Vol. 9.1 fl (6.2-12.0); Monocyte# 0.69 X10^3/uL; Monocyte% 12.5 % (0-10); NRBC Flagged by Analyzer 0 % (0-5); Neutrophil # 3.77 X10^3/uL (2.7-7.7); Neutrophil % 68.6 % (47-70); Platelet Count 307 K/mm3 (150-450); RBC Distribution Width CV 13.6 % (11.6-14.6); RBC Distribution Width SD 43.2 fl (35.1-43.9); Red Blood Count 4.82 M/mm3 (4.6-6.2); White Blood Count 5.5 K/mm3 (4.4-11.0)
--- NOTE | 2023-12-06 06:47 | NM_ITS ---
CLINICAL: 38-year-old male with history of abdominal pain. RADIONUCLIDE HEPATOBILIARY SCINTIGRAPHY COMPARISON: Abdominal ultrasound report 12/05/2023, CT of the abdomen-pelvis report 12/05/2023 FINDINGS: Following the intravenous administration of 4.5 mCi of 99m Tc Mebrofenin, hepatobiliary images reveal: 1. Relatively prompt and homogeneous radiopharmaceutical concentration is noted by a normal sized liver. No parenchymal defects are identified. 2. Gallbladder activity is identified at 10 minutes post radiopharmaceutical administration. 3. Small intestinal tract is not visualized during 60 minutes of pre-CCK sequential imaging. Small bowel activity is identified following the administration of cholecystokinin. 4. Washout of the radiopharmaceutical by the hepatic parenchyma appears qualitatively delayed. Cholecystokinin (0.02 ug/kg) was administered intravenously over a 30-minute period. The post CCK gallbladder ejection fraction calculated at 20 minutes following Cholecystokinin administration was noted to be < 5 % (normal greater than 35%). NM/Hepatobilliary Img w/Pharm Int IMPRESSION: 1. ABNORMAL 99m Tc Mebrofenin hepatobiliary imaging examination with Cholecystokinin. A. A gallbladder ejection fraction calculated to be less than 35% following the administration of Cholecystokinin is consistent with the presence of functional hepatobiliary disease (gallbladder and/or sphincter of Oddi dyskinesia) and/or organic hepatobiliary disease (chronic acalculous cholecystitis and/or cystic duct syndrome) in patients with intermediate to high pretest likelihoods of hepatobiliary illness. (Lurdes Harrison et al, Journal of Nuclear Medicine 32:1695, 1991). B. 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 Electronically Signed: James Benjamin DO at 9:08 EDT ,
[2023-12-06] MEDS: 0.9% Normal Saline (1000mL) 1,000 ML 125 ML IV ×2 (06:49→17:04)
[2023-12-06] MEDS: Acetaminophen 325 MG Tablet 650 MG PO ×2 (06:50→18:26)
[2023-12-06] MEDS: metroNIDAZOLE 500 MG/100 ML BAG 100 MG IV ×2 (06:51→22:33)
[2023-12-06 06:52] LABS: ALB/GLOB Ratio 0.7 RATIO (0.9-2.4); AST(SGOT) 12 U/L (15-37); Alanine Aminotransfer ALT/SGPT 12 U/L (16-61); Albumin, Serum 2.7 g/dL (3.2-5.0); Alkaline Phosphatase 71 U/L (45-117); Anion Gap 5 (5-15); BUN 11 mg/dL (7-18); BUN/Creat Ratio 12.9 RATIO (10-20); Calcium,Total 8.5 mg/dL (8.5-10.1); Chloride 104 mmol/L (98-107); Creatinine, Serum 0.85 mg/dL (0.70-1.30); EST Glomerular Filtration Rate 108 mL/min (>60); Est Glom Filt Rate - Afr Amer 131 mL/min (>60); Estimated Creatinine Clearance 140.71 ml/min; Globulin 3.8 g/dL (2.2-4.2); Glucose 95 mg/dL (74-106); Lipase 20 U/L (13-75); Potassium 3.6 mmol/L (3.5-5.1); Protein, Total 6.5 g/dL (6.4-8.2); Sodium Level 135 mmol/L (136-145)
[2023-12-06 07:01] LABS: Internal QC Validated? YES +Cl - CLEAR BKGD; Monotest Negative (Negative)
[2023-12-06 07:02] LABS: Record Kit Lot#, Mono 13241033
--- NOTE | 2023-12-06 07:03 | PCM.PN.SRG ---
Subjective Subjective Patient still saying is having pain right underneath the rib cage on the right. He denies nausea or vomiting overnight. Objective Data Objective Data Vital Signs: Vital Signs Temp Pulse Resp BP Pulse Ox O2 Del Method 97.5 F L 74 18 129/71 H 97 Room Air 12/06/23 04:05 12/06/23 04:05 12/06/23 04:05 12/06/23 04:05 12/06/23 04:05 12/06/23 04:05 Oxygen Delivery Method Room Air Weight: 182 lb 8.684 oz Body Mass Index (BMI) 22.2 Intake & Output: Intake and Output for Last 24 Hours 12/04/23 12/05/23 12/06/23 23:59 23:59 23:59 Intake Total 1593.75 / 1593.75 989.58 / 989.58 Balance 1593.75 / 1593.75 989.58 / 989.58 Lab / Micro Data 12/06/23 05:45 12/06/23 05:45 Labs: Laboratory Results - last 24 hr 12/05/23 09:45: WBC Cancelled 12/05/23 09:45: WBC 8.9, Corrected WBC Cancelled, RBC Cancelled 12/05/23 09:45: RBC 4.85, Hgb Cancelled 12/05/23 09:45: Hgb 13.6, Hct Cancelled 12/05/23 09:45: Hct 41.7, MCV Cancelled 12/05/23 09:45: MCV 86.0, MCH Cancelled 12/05/23 09:45: MCH 28.0, MCHC Cancelled 12/05/23 09:45: MCHC 32.6, RDW Std Deviation Cancelled 12/05/23 09:45: RDW Std Deviation 42.8, RDW Coeff of Angel Cancelled 12/05/23 09:45: RDW Coeff of Angel 13.8, Plt Count Cancelled 12/05/23 09:45: Plt Count 308, MPV Cancelled 12/05/23 09:45: MPV 9.3, Immature Gran % (Auto) Cancelled 12/05/23 09:45: Immature Gran % (Auto) 0.600, Neut % (Auto) Cancelled 12/05/23 09:45: Neut % (Auto) 69.1, Lymph % (Auto) Cancelled 12/05/23 09:45: Lymph % (Auto) 19.0, Hudspeth % (Auto) Cancelled 12/05/23 09:45: Hudspeth % (Auto) 10.6 H, Eos % (Auto) Cancelled 12/05/23 09:45: Eos % (Auto) 0.0, Baso % (Auto) Cancelled 12/05/23 09:45: Baso % (Auto) 0.7, Absolute Neuts (auto) Cancelled 12/05/23 09:45: Absolute Neuts (auto) 6.2, Absolute Lymphs (auto) Cancelled 12/05/23 09:45: Absolute Lymphs (auto) 1.70, Total Counted Cancelled, Neutrophils % (Manual) Cancelled, Band Neutrophils % Cancelled, Lymphocytes % (Manual) Cancelled, Monocytes % (Manual) Cancelled, Eosinophils % (Manual) Cancelled, Basophils % (Manual) Cancelled, Metamyelocytes % Cancelled, Myelocytes % Cancelled, Promyelocytes % Cancelled, Blast Cells % Cancelled, Plasma Cell % (Manual) Cancelled, Other Cells % Cancelled, Nucleated RBC % Cancelled 12/05/23 09:45: Nucleated RBC % 0, Nucleated RBCs/100 WBC Cancelled, Differential Comment Cancelled, Diff Path Review Cancelled, Hypersegmented Neuts Cancelled, Atypical Lymphocytes Cancelled, Reactive Lymphocytes Cancelled, Smudge Cells Cancelled, Toxic Granulation Cancelled, Toxic Vacuolation Cancelled, Dohle Bodies Cancelled, Dell Rods Cancelled, Platelet Estimate Cancelled, Plt Morphology Comment Cancelled, RBC Morphology Cancelled 12/05/23 09:45: RBC Morphology Cancelled, Polychromasia Cancelled, Hypochromasia Cancelled, Basophilic Stippling Cancelled, Anisocytosis Cancelled, Microcytosis Cancelled, Macrocytosis Cancelled, Spherocytes Cancelled, Sickle Cells Cancelled, Target Cells Cancelled, Tear Drop Cells Cancelled, Ovalocytes Cancelled, Stomatocytes Cancelled, Avendaño-Kibler Bodies Cancelled, Atiya Cells Cancelled, Bite Cells Cancelled, Crenated Cell Cancelled, Acanthocytes (Spur) Cancelled, Rouleaux Cancelled, Schistocytes Cancelled, ESR 12, Sodium 135 L 12/05/23 09:45: Sodium Cancelled, Potassium 4.1 12/05/23 09:45: Potassium Cancelled, Chloride 104 12/05/23 09:45: Chloride Cancelled, Carbon Dioxide 27.0 12/05/23 09:45: Carbon Dioxide Cancelled, Anion Gap 4 L 12/05/23 09:45: Anion Gap Cancelled, BUN 13 12/05/23 09:45: BUN Cancelled, Creatinine 1.05 12/05/23 09:45: Creatinine Cancelled, Estim Creat Clear Calc 115.44 12/05/23 09:45: Estim Creat Clear Calc Cancelled, Est GFR (MDRD) Af Amer 103 12/05/23 09:45: Est GFR (MDRD) Af Amer Cancelled, Est GFR (MDRD) Non-Af 85 12/05/23 09:45: Est GFR (MDRD) Non-Af Cancelled, BUN/Creatinine Ratio 12.4 12/05/23 09:45: BUN/Creatinine Ratio Cancelled, Glucose 103 12/05/23 09:45: Glucose Cancelled, Calcium 8.9 12/05/23 09:45: Calcium Cancelled, Total Bilirubin 1.00 12/05/23 09:45: Total Bilirubin Cancelled, AST 12 L 12/05/23 09:45: AST Cancelled, ALT 15 L 12/05/23 09:45: ALT Cancelled, Alkaline Phosphatase 80 12/05/23 09:45: Alkaline Phosphatase Cancelled, C-React Prot Ext Range 88.00 H, Total Protein 7.1 12/05/23 09:45: Total Protein Cancelled, Albumin 3.1 L 12/05/23 09:45: Albumin Cancelled, Globulin 4.0 12/05/23 09:45: Globulin Cancelled, Albumin/Globulin Ratio 0.8 L 12/05/23 09:45: Albumin/Globulin Ratio Cancelled 12/05/23 10:00: Urine Color Brandy, Urine Clarity Clear, Urine pH 5.0, Ur Specific Neches 1.025, Urine Protein 30 H, Urine Glucose (UA) Normal, Urine Ketones 15 H, Urine Occult Blood 10 H, Urine Nitrite Positive H, Urine Bilirubin 1 H, Urine Urobilinogen 4 H, Ur Leukocyte Esterase 25 H, Urine RBC 0 SEEN, Urine WBC 0-5 SEEN, Ur Squamous Epith Cells 0 SEEN, Urine Bacteria 1+, Urine Mucus 0 SEEN 12/06/23 05:45: WBC 5.5, RBC 4.82, Hgb 13.7, Hct 41.4, MCV 85.9, MCH 28.4, MCHC 33.1, RDW Std Deviation 43.2, RDW Coeff of Angel 13.6, Plt Count 307, MPV 9.1, Immature Gran % (Auto) 0.400, Neut % (Auto) 68.6, Lymph % (Auto) 18.0 L, Hudspeth % (Auto) 12.5 H, Eos % (Auto) 0.0, Baso % (Auto) 0.5, Absolute Neuts (auto) 3.8, Absolute Lymphs (auto) 0.99, Nucleated RBC % 0, Sodium 135 L, Potassium 3.6, Chloride 104, Carbon Dioxide 26.0, Anion Gap 5, BUN 11, Creatinine 0.85, Estim Creat Clear Calc 140.71, Est GFR (MDRD) Af Amer 131, Est GFR (MDRD) Non-Af 108, BUN/Creatinine Ratio 12.9, Glucose 95, Calcium 8.5, Total Bilirubin 0.80, AST 12 L, ALT 12 L, Alkaline Phosphatase 71, Total Protein 6.5, Albumin 2.7 L, Globulin 3.8, Albumin/Globulin Ratio 0.7 L, Lipase 20, Monoscreen Negative Radiography Diagnostic Testing: Radiology Impression Abdomen/Pelvis CT 12/05/23 09:42 IMPRESSION: 1. Trace of free fluid in the pelvis. 2. No focal acute inflammatory process. 3. The appendix is identified and difficult to evaluate. 4. Borderline hepatosplenomegaly. Electronically Signed: Benton Macias MD at 10:59 EDT , Abdomen CT 12/05/23 12:28 IMPRESSION: 1. Minimal fluid near the lower edge of the liver and right lower quadrant. 2. The appendix could not be definitely identified. 3. Otherwise no focal acute inflammatory process. Electronically Signed: Benton Macias MD at 14:19 EDT , Abdomen Ultrasound 12/05/23 15:11 IMPRESSION: Findings suspicious for acute acalculous cholecystitis. Consider nuclear medicine HIDA scan for confirmation. 4 mm gallbladder wall polyp. Electronically Signed: Mono Schulte MD at 17:49 EDT , ADDENDUM: 12/05/23 1830 IMPRESSION: Findings suspicious for acute acalculous cholecystitis. Consider nuclear medicine HIDA scan for confirmation. 4 mm gallbladder wall polyp. N.B. : Naima Gong MD, confirmed on 12/05/2023 18:24:07 (ET) that the healthcare facility has received the radiology report. Electronically Signed: Mono Schulte MD at 17:49 EDT , Physical Exam Const oriented x3 and no apparent distress Resp normal respiratory effort GI soft to palpation Palpation: tender RUQ Assessment & Plan Assessment/Plan (1) Abdominal pain: QUALIFIERS: Abdominal location: right upper quadrant Qualified Code(s): R10.11 - Right upper quadrant pain PLAN: Patient is still having abdominal pain today. White count is normal with no left shift. I am obtaining a HIDA with CCK to check for a calculus cholecystitis. Patient also had nonvisualization of the appendix but his pain is very high in his abdomen. Yesterday ultrasound showed some pericholecystic fluid and thickening of the gallbladder. If HIDA is positive we will take him for laparoscopic cholecystectomy today. I discussed the procedure in detail with the patient. I discussed the risks, benefits, and alternatives of the procedure. I discussed the risks including but not limited to bleeding, infection, injury to surrounding organs such as the liver, bile duct, bowels. I did discuss the possibility of having to convert to an open procedure as well as the possibility that if any injuries occurred this may necessitate further surgery at a tertiary care center. Julien Alcaraz MD Pager: [facility] [address] [place] [address], [address] [place] [address] Office:
[2023-12-06] MEDS: Pantoprazole Sodium 40 MG Tablet PO (09:01)
[2023-12-06] MEDS: 0.9% Saline Lock 10 ML Syringe IV ×2 (09:01→17:04)
--- NOTE | 2023-12-06 10:17 | RAD_ITS ---
INDICATION: LAP COCO WITH IOC EXAMINATION/TECHNIQUE: 1 cine run intraoperative films are presented for evaluation. Total Fluoroscopic Time: 24 seconds Radiation dosage index: 6.41 mGy. COMPARISON: No relevant prior comparison study available FINDINGS: No filling defects are identified. There is no biliary ductal dilatation. There is free passage into the duodenum. RAD/Cholangiogram/ O R,Initial IMPRESSION: No evidence of constant filling defect in the common bile duct. Electronically Signed: Benton Macias MD at 15:18 EDT ,
[2023-12-06] MEDS: Ciprofloxacin 400 MG/200 ML BAG 200 MG IV ×2 (10:52→21:24)
--- NOTE | 2023-12-06 11:50 | CASEMGMT ---
YANIV JUAREZ Assessment: Face to Face with pt for initial transition planning/care coordination assessment. YANIV JUAREZ introduced self and role at [facility], pt voices understanding and consents to assessment. Pt is A&O x4 and answers all questions appropriately at this time. Pt johnson present in room and pt agreeable to assessment with her present. Care providers, pharmacy, and demographics verified/updated. Pt reports address listed is where he gets his mail sent to as it is a locked box. His physical address is [address] [place], [place] [id number]. Admitting Dx: acute cholecystitis PCP:Nori Wall Specialists:Denies Preferred Pharmacy:[facility] Insurance: [employer] Prescription Benefit: yes LNOK: Ivy Abreu, grandmother Living Arrangements: Pt lives with johnson in a two story home with 20 steps to enter with a rail on one side. Pt reports he is I in ADL's and denies concerns at home. Transportation: Pt does not drive. States he rides a speed bike for transportation and he could have his grandmother or uncle transport him if need be. Discussed [facility] van transportation. DME:Denies HHC/SNF: Denies hx of Pt states no concerns with going home at time of dc. Pt states no further concerns/needs. CM to follow. Advised pt to ask CM if any further question/concerns/needs arise, voices understanding. Pt Goal: Home Plan: Home Joe PURVIS CM
[2023-12-06 12:50] LABS: Bedside Glucose 106 mg/dL (74-106)
--- NOTE | 2023-12-06 13:33 | GALL_PTH ---
PATIENT: KATALINA HAWLEY LOC: MS3 U#:[id number] AGE/SX: 38/M ROOM: MI316 RE12/05/[address]: Dr. Julien Alcaraz MD : 1985 BED: 1 DIS: 12/07/2023 SPEC #: [id number] RECD: 12/06/23 17:49 STATUS: RUY JANE #: [id number] ELLIOTT: 12/06/23 13:[address]: Julien Alcaraz DEPT: SURGICAL PATHOLOGY RECD BY: Talya Cervantes ENTERED: 12/07/23 12:16 SP TYPE: OLY KONG DR: [facility] Tissues: Gallbladder, NOS Procedures: Surgery Specimen Level III HEADER OPERATION: Laparoscopic, cholecystectomy with IOC PRE-OP DIAGNOSIS: Acute cholecystitis TISSUE SUBMITTED: Gallbladder MICROSCOPIC DIAGNOSIS Gallbladder, cholecystectomy: Chronic cholecystitis. AM/mr 12/08/2023 MICROSCOPIC DESCRIPTION Slides are reviewed. GROSS DESCRIPTION Received is one container labeled with the patient's name and designated gallbladder. The specimen consists of a gallbladder measuring 10.0 cm in length and up to 5.0 cm in diameter. The external surface is pink-agosto, smooth and glistening for the most part. Focally it is granular, hemorrhagic and contains cautery artifact. The gallbladder is distant and contains green-yellow mucoid bile. No stones are identified in the container or in the gallbladder. The mucosa is bile-stained and without any mass lesions. The gallbladder wall measures up to 0.3 cm in thickness. Air Intercept Controller sections from the gallbladder and the cystic duct are submitted in one cassette. / SJ:mr 12/07/2023 TC:3 CPT: 53305
[2023-12-06] MEDS: metroNIDAZOLE 500 MG/100 ML BAG IV (14:31)
[2023-12-06] MEDS: Bupiv/Epi 0.25% 30 ML Vial (15:11)
--- NOTE | 2023-12-06 15:12 | OP.PCM_ITS ---
Report of Operation Date of Procedure: 12/06/23 Pre-Operative Diagnosis: Acute cholecystitis Post-Operative Diagnosis: Same Surgery/Procedure Performed:: Laparoscopic cholecystectomy with cholangiograms Type of Anesthesia: General/Regional Specimen's removed: Gallbladder and contents Estimated Blood Loss (mL): 20 Description of Procedure: After obtaining informed consent patient was brought back to the operating room. General anesthesia was induced. The abdomen was prepped and draped in usual sterile fashion. A small midline incision was made superior to the umbilicus and deepened to the level of fascia. The fascia was elevated and incised. Next the peritoneum was elevated and incised in the same fashion. Finger sweep was performed and the Brothers trocar was placed into the abdomen. The balloon was inflated. The abdomen was inflated to 15 mmHg. Next a camera was introduced into the abdomen and the abdomen was inspected. Next under direct visualization three 5-mm ports were placed one subxiphoid and 2 subcostal. Next the gallbladder was elevated and retracted toward the right shoulder. The peritoneum was stripped from the gallbladder. The gallbladder was very inflamed. The infundibulum was located and retracted laterally. Next the triangle of Calot was dissected and the cystic duct and cystic artery were identified. Cholangiograms were performed. The Mcallister clamp was used to clamp across the infundibulum and the catheter needle was inserted into the gallbladder. Under fluoroscopy contrast was instilled into the gallbladder and the common duct, cystic duct as well as proximal hepatic ducts were identified. There was good filling of the duodenum. There were no filling defects noted in the common bile duct. The clamp was removed as well as the needle and the infundibulum was grasped once more. Three hemolock clips were placed across the cystic duct. The cystic duct was then divided leaving 2 clips on the stump. The cystic artery was clipped and divided in the same fashion. The hook cautery was then used to take the gallbladder off of the gallbladder bed. Hemostasis was obtained. Gallbladder fossa was irrigated and no active bleeding or bile leakage was noted. Next the camera was introduced in the subxiphoid port. An Endopouch bag was placed through the umbilical port and the gallbladder was placed into it. The gallbladder was then removed through the umbilical incision. The camera was then reinserted through the umbilical port. The gallbladder fossa was inspected once more and noted to be hemostatic with no leaking bile. The abdomen was suctioned dry. The 5 mm ports were removed under direct visualization. The umbilical port was then removed and the air was removed from the abdomen. Next using an 0 Vicryl suture the umbilical fascia was closed in a [id number] fashion. The umbilical port site was irrigated local anesthetic was administered to all the incisions. All the incisions were closed with interrupted subcuticular 4-0 Monocryl sutures followed by Steri- Strips and dressings. The patient was awoken and taken to PACU in stable condition. Admit VTE Documentation VTE Mechan Device Prophylaxis: SCD's
--- NOTE | 2023-12-06 15:31 | CHAPLAIN ---
Type of Pastoral Visit ___ Initial Visit ___ Follow-up Visit ___ On-call Visit ___ General Patient Visit ___ Spiritual Assessment ___ Family Conference ___ Bereavement ___ Rapid Response ___ Code Blue ___ Other (describe below) Pastoral Care Referral From ___ Patient ___ Family ___ Nurse ___ Physician ___ Senior Microsoft Consultant ___ Color Buffer ___ Other (describe below) Sacrament/Intervention ___ Active listening ___ Anointing ___ Anabaptism ___ Bereavement ___ Communion ___ Josefina exploration ___ ___ Life review ___ Prayer ___ Reconciliation ___ Sacrament of Sick ___ Supportive presence ___ Wedding ___ Other (describe below) Pastoral Comments patient and bed were out of the room; left a calling card
[2023-12-06] MEDS: Lactated Ringers 1,000 ML 15 ML IV (15:37)
[2023-12-07 00:51] VITALS: BP 117/69; PULSE 95; RESP 16; TEMP 36.6; O2SAT 95
[2023-12-07] MEDS: 0.9% Normal Saline (1000mL) 1,000 ML 125 ML IV (03:19)
[2023-12-07 04:51] VITALS: BP 118/66; PULSE 64; RESP 16; TEMP 36.6; O2SAT 97
[2023-12-07] MEDS: Ketorolac 15 MG/ML Vial IV (05:13)
[2023-12-07] MEDS: metroNIDAZOLE 500 MG/100 ML BAG 100 MG IV (05:13)
--- NOTE | 2023-12-07 07:14 | PN.SURG_ITS ---
Subjective Subjective Patient is doing well and tolerating a diet. Abdominal pain is much improved. Objective Data Objective Data Vital Signs: Vital Signs Temp Pulse Resp BP Pulse Ox O2 Del Method 97.9 F 64 16 118/66 97 Room Air 12/07/23 04:51 12/07/23 04:51 12/07/23 04:51 12/07/23 04:51 12/07/23 04:51 12/07/23 04:51 Oxygen Delivery Method Room Air Weight: 182 lb 8.684 oz Body Mass Index (BMI) 22.2 Intake & Output: Intake and Output for Last 24 Hours 12/05/23 12/06/23 12/07/23 23:59 23:59 23:59 Intake Total 1593.75 / 1593.75 4002.50 / 4002.50 795.83 / 795.83 Balance 1593.75 / 1593.75 4002.50 / 4002.50 795.83 / 795.83 Lab / Micro Data 12/06/23 05:45 12/06/23 05:45 Labs: Laboratory Results - last 24 hr 12/06/23 12:32: POC Glucose 106 Radiography Diagnostic Testing: Radiology Impression Hepatobiliary Scan Nuclear Medicine 12/06/23 06:47 IMPRESSION: 1. ABNORMAL 99m Tc Mebrofenin hepatobiliary imaging examination with Cholecystokinin. A. A gallbladder ejection fraction calculated to be less than 35% following the administration of Cholecystokinin is consistent with the presence of functional hepatobiliary disease (gallbladder and/or sphincter of Oddi dyskinesia) and/or organic hepatobiliary disease (chronic acalculous cholecystitis and/or cystic duct syndrome) in patients with intermediate to high pretest likelihoods of hepatobiliary illness. (Lurdes Harrison et al, Journal of Nuclear Medicine 32:1695, 1991). B. 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 Electronically Signed: James Benjamin, at 9:08 EDT , Cholangiogram 12/06/23 10:17 IMPRESSION: No evidence of constant filling defect in the common bile duct. Electronically Signed: Benton Macias MD at 15:18 EDT , Physical Exam Const oriented x3 and no apparent distress GI soft to palpation and non-tender Assessment & Plan Assessment/Plan (1) Acute cholecystitis: PLAN: Patient is status post laparoscopic cholecystectomy for acute cholecystitis. Patient tolerating postoperative course well. Tolerating a diet. Pain is well-controlled. I will discharge him home and follow-up in 2 weeks. Julien Alcaraz MD Pager: [facility] [address] [place] [address], [address] [place] [address] Office:
--- NOTE | 2023-12-07 07:15 | PCM.DC.SUM ---
Providers Date of Admission: 12/05/23 Primary Care Physician: Nori [facility] Reason For Visit: ACUTE CHOLECYSTITIS Diagnosis Discharge Diagnosis (1) Acute cholecystitis: Status: Acute Code(s): K81.0 - Acute cholecystitis Plan: Patient is status post laparoscopic cholecystectomy for acute cholecystitis. Patient tolerating postoperative course well. Tolerating a diet. Pain is well-controlled. I will discharge him home and follow-up in 2 weeks. Julien Alcaraz MD Pager: [facility] [address] [place] [address], [address] [place] [phone] Office: Medications at Discharge Home Medications NK 12/05/23 Hospital Course Operations cholecystecomy Summary of Care Provided Hospital Course: Patient was admitted with abdominal pain. The following morning a HIDA was obtained which showed decreased ejection fraction. Concern was for a calculus cholecystitis. He went for laparoscopic cholecystectomy yesterday afternoon. The gallbladder was very inflamed. The appendix appeared normal. After laparoscopic cholecystectomy patient was started on a diet and was tolerating a diet and his pain is well-controlled you be discharged home. Weight / BMI Weight Weight: 182 lb 8.684 oz Body Mass Index (BMI) 22.2 ABG / Lab / Microbiology Data 12/06/23 05:45 12/06/23 05:45 Laboratory: Laboratory Results - last 24 hr 12/06/23 12:32: POC Glucose 106 Radiography Diagnostic Testing: Radiology Impression Hepatobiliary Scan Nuclear Medicine 12/06/23 06:47 IMPRESSION: 1. ABNORMAL 99m Tc Mebrofenin hepatobiliary imaging examination with Cholecystokinin. A. A gallbladder ejection fraction calculated to be less than 35% following the administration of Cholecystokinin is consistent with the presence of functional hepatobiliary disease (gallbladder and/or sphincter of Oddi dyskinesia) and/or organic hepatobiliary disease (chronic acalculous cholecystitis and/or cystic duct syndrome) in patients with intermediate to high pretest likelihoods of hepatobiliary illness. (Lurdes Velez al, Journal of Nuclear Medicine 32:1695, 1991). B. 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 Electronically Signed: James Benjamin DO at 9:08 EDT , Cholangiogram 12/06/23 10:17 IMPRESSION: No evidence of constant filling defect in the common bile duct. Electronically Signed: Benton Macias MD at 15:18 EDT , D/C Instructions Discharge Diet: Light diet - advance as tolerated Discharge Activity: May Not Drive (for 2-3 days or while taking narcotic pain medications.) and - (Do not drive, work heavy equipment or sign legal documents for 24 hours.) May shower in (days): 1 Lifting Restrictions: 20 lbs for 2 weeks Additional Activity Instructions: Pain medication may cause nausea. You should typically eat light foods as you take your pain medications. Pain medication may also cause constipation. If this is a problem for you, please discuss with your doctor. Alternate ibuprofen and Tylenol for pain control Call your doctor if your incision/area has: Continuous Slow Oozing, Sudden Increased Bleeding, Increased Pain/ Swelling, Increased Redness and Foul Smelling Discharge Call your doctor if you observe: Fever of 101 or Higher Suture Line Care: Avoid Pulling/Pushing and Avoid Pinching/Bending Remove Dressing in: 2 days Additional Dressing/Incision Instructions: Leave operative bandaids on for 2 days. When you remove dressing, leave Steri-Strips on until your follow-up appointment, or until the Steri-Strips fall off on their own. Please Follow Up With: Julien Alcaraz MD When: Please call to schedule 2 week follow up appointment. [phone] Meaningful Use Info Meaningful Use Meaningful Use Diagnoses (Choose all that apply): None applicable Ischemic Stroke Statin Dosing Therapy Reference: STATIN DOSE THERAPY REFERENCE: * Patients > 75 years receive moderate or high dose statin therapy. * Patients 75 years or YOUNGER should receive HIGH intensity statin dose unless contraindicated. You will be required to document reason for non-treatment if statin daily dose does not meet guidelines. HIGH DOSE STATIN THERAPY DAILY Atorvastatin > than or = to 40 mg Rosuvastatin > than or = to 20 mg Amlodipine + Atorvastatin > than or = to 2.5/40 mg Ezetimibe + Simvastatin 10/80 mg Simvastatin 80mg Discharge Plan Admission Admit Date/Time: 12/05/23 19:26 Attending Provider: Julien Alcaraz [facility] Orders/Prescriptions Prescriptions: Continued NK Referrals / Follow Up: Care Physician,No Primary [Non-Staff] - [facility] [Primary Care Provider] - Disposition Disposition (needs filled in before D/C Order can be placed): Home, Self Care
[2023-12-07 07:43] LABS: Absolute Lymphocyte Count 1.39 X10^3/uL (0.83-4.51); Absolute Neutrophil Count 6.2 X10^3/uL (2.0-7.7); Basophil# 0.04 X10^3/uL; Basophil% 0.5 % (0-1); Hematocrit 41.3 % (40-54); Hemoglobin 13.5 g/dL (13.0-16.5); Lymphocyte # 1.39 X10^3/ul (0.83-4.51); Lymphocyte % 16.2 % (19-41); Mean Corp Hgb Conc 32.7 g/dL (32-36); Mean Corpuscular Hgb 28.2 pg (27.0-32.0); Mean Corpuscular Volume 86.4 fL (80-94); Mean Platelet Vol. 9.5 fl (6.2-12.0); Monocyte# 0.92 X10^3/uL; Monocyte% 10.7 % (0-10); NRBC Flagged by Analyzer 0 % (0-5); Neutrophil # 6.19 X10^3/uL (2.7-7.7); Platelet Count 340 K/mm3 (150-450); RBC Distribution Width CV 13.5 % (11.6-14.6); RBC Distribution Width SD 42.6 fl (35.1-43.9); Red Blood Count 4.78 M/mm3 (4.6-6.2); White Blood Count 8.6 K/mm3 (4.4-11.0)
[2023-12-07 08:16] LABS: Anion Gap 2 (5-15); BUN 13 mg/dL (7-18); Calcium,Total 8.3 mg/dL (8.5-10.1); Chloride 105 mmol/L (98-107); EST Glomerular Filtration Rate 90 mL/min (>60); Est Glom Filt Rate - Afr Amer 109 mL/min (>60); Glucose 128 mg/dL (74-106); Potassium 3.6 mmol/L (3.5-5.1); Sodium Level 135 mmol/L (136-145)
[2023-12-07 08:30] VITALS: BP 111/70; PULSE 60; RESP 18; TEMP 36.6; O2SAT 98
[2023-12-07] MEDS: Acetaminophen 325 MG Tablet 650 MG PO (08:38)
[2023-12-07] MEDS: Pantoprazole Sodium 40 MG Tablet PO (08:38)
== END 2023-12-07 09:35 | disposition home or self-care (01) | DRG 263 ==
LOC: ED 10:49 → MS3 12-06 09:43
PROVIDERS: Admitting Provider Surgery; Emergency Provider Emergency Medicine; Visit Provider Surgery
PROC: (CPT 47610; principal; 2023-12-06 13:10)
DX: K81.2 Acute cholecystitis with chronic cholecystitis (principal); F17.210 Nicotine dependence, cigarettes, uncomplicated
CPT/HCPCS: 47563; 00790; 36415; 74176; 74177; 74178; 74300; 76000; 76705; 78227; 80048; 80053; 81001; 82962; 83690; 85025; 85652; 86140; 86308; 88304; 96361; 96365; 96366; 96367; 96375; 99221; 99284; A9537; J7030; J7120; Q9967; A4216; G0378; J0744; J2405

== ENCOUNTER 2025-01-11 10:03 | Emergency (ER) | payer MEDICAID, SELFPAY ==
[2025-01-11 10:04] VITALS: BP 99/70; PULSE 79; RESP 16; TEMP 36.8; O2SAT 98; BMI 25.4
--- NOTE | 2025-01-11 10:33 | RAD_ITS ---
PROCEDURE: SHOULDER MIN 2 VIEWS 01/11/2025 REASON FOR EXAM: INJURY TECHNIQUE: SHOULDER MIN 2 VIEWS COMPARISON: None RAD/Shoulder min 2 Views IMPRESSION: No acute fracture or dislocations. No acute soft tissue abnormalities. No radio graphic foreign body. No significant degenerative changes. Reading Location: [id number]
--- NOTE | 2025-01-11 11:15 | RAD_ITS ---
PROCEDURE: SCAPULA 01/11/2025 REASON FOR EXAM: TRAUMA TECHNIQUE: SCAPULA COMPARISON: None FINDINGS: There is good alignment. No fracture seen. RAD/Scapula IMPRESSION: Unremarkable examination. Reading Location: [place] [address]
[2025-01-11] MEDS: HYDROcodone Bitartrate/Apap 5/325 Tablet PO (11:50)
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
--- OUTSIDE RECORDS SUMMARY | 2025-01-11 17:30 | XMS RPT_ITS | CCD ---
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 6.4-8.2 [facility] Comment on above: Performed By: #### L 500.4050, L501.2450, L100.0100 ####[facility] [address] [place], [address] Urea nitrogen [Mass/Vol] 11 mg/dL Normal 7-18 [facility] Comment on above: Performed By: #### L 500.4050, L501.2450, L100.0100 ####[facility] [address] [place], [address] Hepatobilliary Img w/Pharm I nton 12-06-2023 Hepatobilliary Img w/Pharm Int [facility] Imaging Services [address] [place] [address] Hepatobilliary Img w/Pharm Int MR#: [id number] Acct: [id number] Name: KATALINA HAWLEY Rep #: [id number] : 1985 M 38 From: James Benson PCP: [facility] Status: ADM IN Study: Hepatobilliary Img w/Pharm Int Date of Exam: 0 12/06/23 Exam# [id number] Ordering Dr: Julien Alcaraz [id number] CLINICAL: 38-year-old male with history of abdominal pain. RADIONUCLIDE HEPATOBILIARY SCINTIGRAPHY COMPARISON: Abdominal ultrasound report 12/05/2023, CT of the abdomen-pelvis report 12/05/2023 FINDINGS: Following the intravenous administration of 4.5 mCi of 99m Tc Mebrofenin, hepatobiliary images reveal: 1. Relatively prompt and homogeneous radiopharmaceutical concentration is noted by a normal sized liver. No parenchymal defects are identified. 2. Gallbladder activity is identified at 10 minutes post radiopharmaceutical administration. 3. Small intestinal tract is not visualized during 60 minutes of pre-CCK sequential imaging. Small bowel activity is identified following the administration of cholecystokinin. 4. Washout of the radiopharmaceutical by the hepatic parenchyma appears qualitatively delayed. Cholecystokinin (0.02 ug/kg) was administered intravenously over a 30-minute period. The post CCK gallbladder ejection fraction calculated at 20 minutes following Cholecystokinin administration was noted to be < 5 % (normal greater than 35%). NM/Hepatobilliary Img w/Pharm Int IMPRESSION: 1. ABNORMAL 99m Tc Mebrofenin hepatobiliary imaging examination with Cholecystokinin. A. A gallbladder ejection fraction calculated to be less than 35% following the administration of Cholecystokinin is consistent with the presence of functional hepatobiliary disease (gallbladder and/or sphincter of Oddi dyskinesia) and/or organic hepatobiliary disease (chronic acalculous cholecystitis and/or cystic duct syndrome) in patients with intermediate to high pretest likelihoods of hepatobiliary illness. (Lurdes Harrison et al, Journal of Nuclear Medicine 32:1695, 1990). B. 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 Electronically Signed: James Benjamin DO at 9:08 EDT , CC: Dr. Julien Alcaraz MD; [facility] Oncology Research Rn: Signed Normal [facility] Lipaseon 12-06-2023 Lipase [Catalytic activity/Vol] 20 U/L Normal 13-75 [facility] Comment on above: Result Comment: Hunter heard note: LIPASE revised reference range effective 22. New Lipase methodology. Expected to produce lower values than the previous assay method. NEW Reference Range: 13 - 75 U/L Performed By: #### L 500.4050, L501.2450, L100.0100 ####[facility] [address] [place], [address] Monoteston 12-06-2023 Monocytes (Bld) [#/Vol] Negative Normal Negative [facility] Comment on above: Performed By: #### L 700.5500 #### [facility] [address] [place], [address] Operative Reporton 4 Operative Report [facility] Medical Records Department [address] [place] [address] Operative Report 12/06/23 1512 MR#: [id number] Acct: [id number] Name: KATALINA HAWLEY Rep #: [id number] : 1985 38 From: Julien Alcaraz MD PCP: [facility] Status:ADM IN Location: [facility] FB361-2 Report of Operation Date of Procedure: 12/06/23 Pre-Operative Diagnosis: Acute cholecystitis Post-Operative Diagnosis: Same Surgery/Procedure Performed:: Laparoscopic cholecystectomy with cholangiograms Type of Anesthesia: General/Regional Specimen's removed: Gallbladder and contents Estimated Blood Loss (mL): 20 Description of Procedure: After obtaining informed consent patient was brought back to the operating room. General anesthesia was induced. The abdomen was prepped and draped in usual sterile fashion. A small midline incision was made superior to the umbilicus and deepened to the level of fascia. The fascia was elevated and incised. Next the peritoneum was elevated and incised in the same fashion. Finger sweep was performed and the Brothers trocar was placed into the abdomen. The balloon was inflated. The abdomen was inflated to 15 mmHg. Next a camera was introduced into the abdomen and the abdomen was inspected. Next under direct visualization three 5-mm ports were placed one subxiphoid and 2 subcostal. Next the gallbladder was elevated and retracted toward the right shoulder. The peritoneum was stripped from the gallbladder. The gallbladder was very inflamed. The infundibulum was located and retracted laterally. Next the triangle of Calot was dissected and the cystic duct and cystic artery were identified. Cholangiograms were performed. The Mcallister clamp was used to clamp across the infundibulum and the catheter needle was inserted into the gallbladder. Under fluoroscopy contrast was instilled into the gallbladder and the common duct, cystic duct as well as proximal hepatic ducts were identified. There was good filling of the duodenum. There were no filling defects noted in the common bile duct. The clamp was removed as well as the needle and the infundibulum was grasped once more. Three hemolock clips were placed across the cystic duct. The cystic duct was then divided leaving 2 clips on the stump. The cystic artery was clipped and divided in the same fashion. The hook cautery was then used to take the gallbladder off of the gallbladder bed. Hemostasis was obtained. Gallbladder fossa was irrigated and no active bleeding or bile leakage was noted. Next the camera was introduced in the subxiphoid port. An Endopouch bag was placed through the umbilical port and the gallbladder was placed into it. The gallbladder was then removed through the umbilical incision. The camera was then reinserted through the umbilical port. The gallbladder fossa was inspected once more and noted to be hemostatic with no leaking bile. The abdomen was suctioned dry. The 5 mm ports were removed under direct visualization. The umbilical port was then removed and the air was removed from the abdomen. Next using an 0 Vicryl suture the umbilical fascia was closed in a sxwtxb-ew-fglyj fashion. The umbilical port site was irrigated local anesthetic was administered to all the incisions. All the incisions were closed with interrupted subcuticular 4-0 Monocryl sutures followed by Steri-Strips and dressings. The patient was awoken and taken to PACU in stable condition. Admit VTE Documentation VTE Mechan Device Prophylaxis: SCD's 12/06/23 1514 Cosigner Signature (if applicable): CC: Dr. Julien Alcaraz MD; [facility] Signed Normal [facility] Surgery Specimen Level IIIon 12-06-2023 Surgery Specimen Level III ---- Patient Age/Sex Location Account Attending Physician ---- KATALINA HAWLEY 38/M MS3 [id number] Dr. Julien Alcaraz MD ---- Specimen: Received: 12/06/239698 Status: RUY Fagansary Num: [id number] Spec Type: OLY Emmanuel Dr: Dr. Julien Alcaraz MD HEADER OPERATION: Laparoscopic, cholecystectomy with IOC PRE-OP DIAGNOSIS: Acute cholecystitis TISSUE SUBMITTED: Gallbladder ---- MICROSCOPIC DIAGNOSIS Gallbladder, cholecystectomy: Chronic cholecystitis. AM/ 12/08/2023 MICROSCOPIC DESCRIPTION Slides are reviewed. GROSS DESCRIPTION Received is one container labeled with the patient's name and designated gallbladder. The specimen consists of a gallbladder measuring 10.0 cm in length and up to 5.0 cm in diameter. The external surface is pink-agosto, smooth and glistening for the most part. Focally it is granular, hemorrhagic and contains cautery artifact. The gallbladder is distant and contains green-yellow mucoid bile. No stones are identified in the container or in the gallbladder. The mucosa is bile-stained and without any mass lesions. The gallbladder wall measures up to 0.3 cm in thickness. Director Of Program Management sections from the gallbladder and the cystic duct are submitted in one cassette. / SJ: 12/07/2023 TC:3 [facility]: [id number] ---- Patient Age/Sex Location Account Attending Physician ---- KATALINA HAWLEY 38/M MS3 [id number] Dr. Julien Alcaraz MD ---- Signed (signature on file) Dr. Brant Hendricks DO 12/08/23 1351 ---- [facility] Comment on above: Performed By: #### P MITESHIII ####[facility] [address] [place], [place], [address] Abdomen Limitedon 12-05-2023 Abdomen Limited [facility] Imaging Services [address] [place] [address] Abdomen Limited MR#: [id number] Acct: [id number] Name: KATALINA HAWLEY Rep #: [id number] : 1985 M 38 From: Mono longoria MD PCP: [facility] Status: REG ER Study: Abdomen Limited Date of Exam: 12/05/23 Exam# [id number] Ordering Dr: Flor Carbajal DO ADDENDUM by Mono Schulte MD on 12/05/23 at 1041 [id number] INDICATION: abdominal pain EXAMINATION: US Abdomen RUQ (limited) TECHNIQUE: Woodson-scale and color Doppler imaging was performed of the right upper abdominal quadrant. COMPARISON: None. Findings: The liver is homogenous and normal in echogenicity and echotexture. There is no evidence of contour nodularity. No focal hepatic mass is identified. The main portal vein is normal in size and patent demonstrating hepatopetal flow. The gallbladder has a mildly thickened wall of 3.5 mm. There are no stones present. There is a 4 mm polyp.. Sonographic Elliott''s tenderness is appreciated. There is no evidence of intrahepatic biliary ductal dilatation. The CBD is nondilated measuring 4 mm at the level of the susan hepatis. The visualized portions of the pancreas are unremarkable without evidence of focal or diffuse enlargement. Specifically, the tail is obscured by overlying bowel gas. Right kidney measures 10.8 cm in length. It is normal in echogenicity. No focal renal lesion is identified. There is no evidence of hydronephrosis. 12/05/231748 Date cc: Dr. Flor Carbajal DO; [facility] * Signed ADDENDUM by Mono Schulte MD on 12/05/23 at 1142 US/Abdomen Limited IMPRESSION: Findings suspicious for acute acalculous cholecystitis. Consider nuclear medicine HIDA scan for confirmation. 4 mm gallbladder wall polyp. N.B. : Naima Gong MD, confirmed on 12/05/2023 18:24:07 (ET) that the healthcare facility has received the radiology report. Electronically Signed: Mono Schulte MD at 17:49 EDT , 12/05/23 1830 Date cc: Dr. Flor Carbajal, DO; [facility] * Signed ACR Level 3 findings have been noted. An addendum which confirms receipt of the report will follow. [id number] INDICATION: abdominal pain EXAMINATION: US Abdomen RUQ (limited) TECHNIQUE: Woodson-scale and color Doppler imaging was performed of the right upper abdominal quadrant. COMPARISON: None. Findings: The liver is homogenous and normal in echogenicity and echotexture. There is no evidence of contour nodularity. No focal hepatic mass is identified. The main portal vein is normal in size and patent demonstrating hepatopetal flow. The gallbladder has a mildly thickened wall of 3.5 mm. There are no stones present. There is a 4 mm polyp.. Sonographic Elliott''s tenderness is appreciated. There is no evidence of intrahepatic biliary ductal dilatation. The CBD is nondilated measuring 4 mm at the level of the susan hepatis. The visualized portions of the pancreas are unremarkable without evidence of focal or diffuse enlargement. Specifically, the tail is obscured by overlying bowel gas. Right kidney measures 10.8 cm in length. It is normal in echogenicity. No focal renal lesion is identified. There is no evidence of hydronephrosis. US/Abdomen Limited IMPRESSION: Findings suspicious for acute acalculous cholecystitis. Consider nuclear medicine HIDA scan for confirmation. 4 mm gallbladder wall polyp. Electronically Signed: Mono Schulte MD at 17:49 EDT , CC: Dr. Flor Carbajal DO; [facility] Oncology Research Rn: Signed Normal [facility] Abdomen/Pel W ORAL Cont Only on 12-05-2023 Abdomen/Pel W ORAL Cont Only [facility] Imaging Services [address] [place], [place] [address] Abdomen/Pel W ORAL Cont Only MR#: [id number] Acct: [id number] Name: KATALINA HAWLEY Rep #: [id number] : 1985 M 38 From: Benton Zuniga PCP: [facility] Status: REG ER Study: Abdomen/Pel W ORAL Cont Only Date of Exam: Exam# [id number] Ordering Dr: Flor Carbajal DO [id number] INDICATION: abdominal pain EXAMINATION: CT ABDOMEN AND PELVIS WITHOUT CONTRAST TECHNIQUE: Helically acquired images were obtained of the abdomen and pelvis without oral or IV contrast. A radiation dose optimization technique was used for this scan. IV Contrast dosage and agent: None. Oral contrast: None. RADIATION DOSAGE (If Supplied By Facility): CTDIvol = ( 7.66 ) mGy, DLP = ( 424.89 ) mGycm COMPARISON: Comparison is made with the previous examination of the same date done earlier. FINDINGS: LOWER CHEST: Atelectatic changes in the lung bases. No cardiomegaly or pericardial effusion. LIVER: Homogeneous. No focal mass. GALLBLADDER AND BILIARY TREE: No calcified gallstones. No gallbladder distension or wall edema. No intra- or extrahepatic biliary ductal dilation. PANCREAS: No focal cystic or solid mass. SPLEEN: Normal size without focal cystic or solid mass. ADRENAL GLANDS: No nodules. KIDNEYS AND URETERS: Normal renal size and position. No hydronephrosis. PERITONEUM: Mild fluid inferior to the lower edge of the liver and right lower quadrant. No other fluid collection. BOWEL: The appendix again could not be definitely identified. No stomach or bowel distension. No focal inflammatory change. LYMPH NODES: No enlarged mesenteric or retroperitoneal lymph nodes. VESSELS: Aorta is non-dilated. URINARY BLADDER: Unremarkable. REPRODUCTIVE ORGANS: No pelvic masses. ABDOMINAL WALL: No discrete abdominal or pelvic wall hernia. BONES: Unchanged. CT/Abdomen/Pel W ORAL Cont Only IMPRESSION: 1. Minimal fluid near the lower edge of the liver and right lower quadrant. 2. The appendix could not be definitely identified. 3. Otherwise no focal acute inflammatory process. Electronically Signed: Benton Macias MD at 14:19 EDT , CC: Dr. Flor Carbajal DO; [facility] Oncology Research Rn: Signed Normal [facility] Abdomen/Pelvis W IV Cont ONL Yon 12-05-2023 Abdomen/Pelvis W IV Cont ONLY [facility] Imaging Services [address] [place], [place] [address] Abdomen/Pelvis W IV Cont ONLY MR#: [id number] Acct: [id number] Name: KATALINA HAWLEY Rep #: [id number] : 1985 M 38 From: Benton Zuniga PCP: [facility] Status: REG ER Study: Abdomen/Pelvis W IV Cont ONLY Date of Exam: Exam# [id number] Ordering Dr: Flor Carbajal DO [id number] STUDY: CT ABDOMEN AND PELVIS WITH CONTRAST REASON FOR EXAM: Male, 38 years old. Right abdominal pain RADIATION DOSAGE (If Supplied By Facility): CTDIvol = ( 12.14 ) mGy, DLP = ( 759.53 ) mGycm TECHNIQUE: IV 100mL Isovue-300 was administered. Transaxial images were obtained from the dome of the diaphragm to the symphysis pubis. Multiplanar coronal and sagittal images were reformatted. Individualized Dose Optimization Techniques Were Used For This CT. COMPARISON: No relevant prior comparison study available FINDINGS: The visualized lung bases are unremarkable. The visualized portions of the heart are within normal limits. Borderline to mild hepatomegaly. No focal lesion is seen. Normal gallbladder and extrahepatic biliary system. Borderline to mild splenomegaly. Normal pancreas. Normal bilateral adrenal glands. Normal visualized stomach. Normal in caliber small bowel loops. No evidence of acute diverticulitis. There is non-visualization of the appendix. Normal abdominal aorta. No retroperitoneal adenopathy. Normal right kidney. Normal left kidney. The bladder is collapsed and nondistended. Trace of free fluid in the pelvis. Normal abdominal wall. Minimal anterior wedging of T12 probably chronic or normal variant. Schmorl''s nodes. CT/Abdomen/Pelvis W IV Cont ONLY IMPRESSION: 1. Trace of free fluid in the pelvis. 2. No focal acute inflammatory process. 3. The appendix is identified and difficult to evaluate. 4. Borderline hepatosplenomegaly. Electronically Signed: Benton Macias MD at 10:59 EDT , CC: Dr. Flor Carbajal, DO; [facility] Oncology Research Rn: Signed Normal [facility] Absolute lymphocyte countOrd ered By: Flor Carbajal on 12-05-2023 Lymphocytes Auto (Unsp spec) [#/Vol] 1.70 10*3/uL 0.83-4.51 [facility] Automated blood erythrocyte count (number/volume)Ordered By: Flor Carbajal on 12-05-2023 RBC (Bld) [#/Vol] 4.85 10*6/uL Normal 4.6-6.2 [facility] Comment on above: Performed By: #### L 100.0100, L500.4050 #### [facility] [address] [place], [address] Automated blood hematocrit ( percentage)Ordered By: Flor Carbajal on 12-05-2023 Hematocrit (Bld) [Volume fraction] 41.7 % Normal 40-54 [facility] Comment on above: Performed By: #### L 100.0100, L500.4050 #### [facility] [address] [place], [address] Automated lymphocyte count a s percentage of total leukocytesOrdered By: Flor Carbajal on 12-05-2023 Lymphocytes/100 WBC Auto (Unsp spec) 19.0 % 19-41 [facility] Basophil percentageOrdered B y: Flor Carbajal on 12-05-2023 Basophil percentage 0-5 SEEN /hpf 0-5 [facility] Basophils/100 WBC (Bld) 0.7 % Normal 0-1 [facility] Comment on above: Performed By: #### L 100.0100, L500.4050 #### [facility] [address] [place], [address] Bilirubin [Mass/Vol] 1.00 mg/dL 0.20-1.00 [facility] Comment on above: For patients on eltr ombopag therapy, use of Dimension [place] TBIL is not recommended. Chloride [Moles/Vol] 104 mmol/L 98-107 [facility] Eosinophils/100 WBC (Bld) 0.0 % Normal 0-5 [facility] Comment on above: Performed By: #### L 100.0100, L500.4050 #### [facility] [address] [place], [address] Glucose [Mass/Vol] 103 mg/dL 74-106 [facility] Comment on above: Fasting Glucose resu lt from 100 to 125 mg/dL suggests IMPAIRED HOMEOSTASIS per A.D.A. criteria. Hemoglobin (Bld) [Mass/Vol] 13.6 g/dL Normal 13.0-16.5 [facility] Comment on above: Performed By: #### L 100.0100, L500.4050 #### [facility] [address] [place], [address] Monocytes/100 WBC (Bld) 10.6 % High 0-10 [facility] Comment on above: Performed By: #### L 100.0100, L500.4050 #### [facility] [address] [place], [address] Neutrophils (Bld) [#/Vol] 6.2 10*3/uL 2.0-7.7 [facility] Neutrophils/100 WBC (Bld) 69.1 % Normal 47-70 [facility] Comment on above: Performed By: #### L 100.0100, L500.4050 #### [facility] [address] [place], [address] Potassium [Moles/Vol] 4.1 mmol/L 3.5-5.1 [facility] Protein [Mass/Vol] 7.1 g/dL 6.4-8.2 [facility] Sodium [Moles/Vol] 135 mmol/L 136-145 [facility] WBC (Bld) [#/Vol] 8.9 10*3/uL Normal 4.4-11.0 [facility] Comment on above: Performed By: #### L 100.0100, L500.4050 #### [facility] [address] [place], [address] Bilirubin Test strip Ql (U)O rdered By: Flor Carbajal on 12-05-2023 Bilirubin Ql (U) 1 mg/dL Negative [facility] Comment on above: COLOR OF URINE MAY A FFECT DIPSTICK RESULTS. CBC W/Diff, Automatedon 11-22 Absolute Lymph 1.70 X10 3/uL Normal 0.83-4.51 [facility] Comment on above: Performed By: #### L 100.0100, L500.4050 #### [facility] [address] [place], [address] Absolute Neut 6.2 X10 3/uL Normal 2.0-7.7 [facility] Comment on above: Performed By: #### L 100.0100, L500.4050 #### [facility] [address] [place], [address] IG% 0.600 Normal 0.0-0.9 [facility] Comment on above: Result Comment: IG% - Immature Granulocytes (promyelocytes, myelocytes and metamyelocytes) > 1% indicates that a LEFT SHIFT is Present. Performed By: #### L 100.0100, L500.4050 #### [facility] [address] [place], [address] Lymphocytes/100 WBC (Bld) 19.0 % Normal 19-41 [facility] Comment on above: Performed By: #### L 100.0100, L500.4050 #### [facility] [address] [place], [address] Nucleated RBC (Bld) [#/Vol] 0 10*3/uL Normal 0-5 [facility] Comment on above: Performed By: #### L 100.0100, L500.4050 #### [facility] [address] [place], [address] RDW SD 42.8 fl Normal 35.1-43.9 [facility] Comment on above: Performed By: #### L 100.0100, L500.4050 #### [facility] [address] [place], [address] Absolute Neut Normal 2.0-7.7 [facility] Comment on above: Result Comment: DUPL ICATE Performed By: #### L 100.0100, L500.4050 #### [facility] [address] [place], [address] HCT Normal 40-54 [facility] Comment on above: Result Comment: DUPL ICATE Performed By: #### L 100.0100, L500.4050 #### [facility] [address] [place], [address] HGB Normal 13.0-16.5 [facility] Comment on above: Result Comment: DUPL ICATE Performed By: #### L 100.0100, L500.4050 #### [facility] [address] [place], [address] MCH Normal 27.0-32.0 [facility] Comment on above: Result Comment: DUPL ICATE Performed By: #### L 100.0100, L500.4050 #### [facility] [address] [place], [address] MCHC Normal 32-36 [facility] Comment on above: Result Comment: DUPL ICATE Performed By: #### L 100.0100, L500.4050 #### [facility] [address] [place], [address] MCV Normal 80-94 [facility] Comment on above: Result Comment: DUPL ICATE Performed By: #### L 100.0100, L500.4050 #### [facility] [address] [place], [address] NEUT% Normal 47-70 [facility] Comment on above: Result Comment: DUPL ICATE Performed By: #### L 100.0100, L500.4050 #### [facility] [address] [place], [address] PLT Normal 150-450 [facility] Comment on above: Result Comment: DUPL ICATE Performed By: #### L 100.0100, L500.4050 #### [facility] [address] [place], [address] RBC Normal 4.6-6.2 [facility] Comment on above: Result Comment: DUPL ICATE Performed By: #### L 100.0100, L500.4050 #### [facility] [address] [place], [address] RDW CV Normal 11.6-14.6 [facility] Comment on above: Result Comment: DUPL ICATE Performed By: #### L 100.0100, L500.4050 #### [facility] [address] [place], [address] RDW SD Normal 35.1-43.9 [facility] Comment on above: Result Comment: DUPL ICATE Performed By: #### L 100.0100, L500.4050 #### [facility] [address] [place], [address] WBC Normal 4.4-11.0 [facility] Comment on above: Result Comment: DUPL ICATE Performed By: #### L 100.0100, L500.4050 #### [facility] [address] [place], [address] CBC W/Diff, AutomatedOrdered By: Flor Carbajal on 12-05-2023 MCH (RBC) [Entitic mass] 28.0 pg Normal 27.0-32.0 [facility] Comment on above: Performed By: #### L 100.0100, L500.4050 #### [facility] [address] [place], [address] MCHC (RBC) [Mass/Vol] 32.6 g/dL Normal 32-36 [facility] Comment on above: Performed By: #### L 100.0100, L500.4050 #### [facility] [address] [place], [address] Platelet mean volume (Bld) [Entitic vol] 9.3 fL Normal 6.2-12.0 [facility] Comment on above: Performed By: #### L 100.0100, L500.4050 #### [facility] [address] [place], [address] Platelets (Bld) [#/Vol] 308 10*3/uL Normal 150-450 [facility] Comment on above: Performed By: #### L 100.0100, L500.4050 #### [facility] [address] [place], [address] CRPon 12-05-2023 C-REACTIVE PROT 88.00 mg/L High 0.0-3.0 [facility] Comment on above: Result Comment: C-Re active Protein (CRP) provides useful information for the diagnosis, therapy and monitoring of inflammatory processes and associated diseases. For the evaluation of Relative Risk for Cardiovascular Disease, a High Sensitivity CRP (HSCRP) should be ordered. Performed By: #### L 101.9900, L501.6710 #### [facility] [address] [place], [address] Comprehensive Metabolic Prof ilon 12-05-2023 Albumin [Mass/Vol] 3.1 g/dL Low 3.2-5.0 [facility] Comment on above: Performed By: #### L 100.0100, L500.4050 #### [facility] [address] [place], [address] Albumin/Globulin [Mass ratio] 0.8 {ratio} Low 0.9-2.4 [facility] Comment on above: Performed By: #### L 100.0100, L500.4050 #### [facility] [address] [place], [address] ALK P 80 U/L Normal 45-117 [facility] Comment on above: Performed By: #### L 100.0100, L500.4050 #### [facility] [address] [place], [address] ALT [Catalytic activity/Vol] 15 U/L Low 16-61 [facility] Comment on above: Performed By: #### L 100.0100, L500.4050 #### [facility] [address] [place], [address] AST [Catalytic activity/Vol] 12 U/L Low 15-37 [facility] Comment on above: Performed By: #### L 100.0100, L500.4050 #### [facility] [address] [place], [address] Bilirubin [Mass/Vol] 1.00 mg/dL Normal 0.20-1.00 [facility] Comment on above: Result Comment: For patients on eltrombopag therapy, use of Dimension [place] TBIL is not recommended. Performed By: #### L 100.0100, L500.4050 #### [facility] [address] [place], [address] BUN/CRE 12.4 RATIO Normal 10-20 [facility] Comment on above: Performed By: #### L 100.0100, L500.4050 #### [facility] [address] [place], [address] CA,Total 8.9 mg/dL Normal 8.5-10.1 [facility] Comment on above: Performed By: #### L 100.0100, L500.4050 #### [facility] [address] [place], [address] Chloride [Moles/Vol] 104 mmol/L Normal 98-107 [facility] Comment on above: Performed By: #### L 100.0100, L500.4050 #### [facility] [address] [place], [address] CO2 [Moles/Vol] 27.0 mmol/L Normal 21.0-32.0 [facility] Comment on above: Performed By: #### L 100.0100, L500.4050 #### [facility] [address] [place], [address] Creatinine [Mass/Vol] 1.05 mg/dL Normal 0.70-1.30 [facility] Comment on above: Result Comment: The validity of the calculated GFR GFRAA in patients over 70 years has not been determined. Clinical correlation is essential. Performed By: #### L 100.0100, L500.4050 #### [facility] [address] [place], [address] ECRCL 115.44 ml/min Normal [facility] Comment on above: Performed By: #### L 100.0100, L500.4050 #### [facility] [address] [place], [address] EST GFR - AA 103 mL/min Normal >60 [facility] Comment on above: Result Comment: Afri can [place] GFR Calc Performed By: #### L 100.0100, L500.4050 #### [facility] [address] [place], [address] GAP 4 Low 5-15 [facility] Comment on above: Performed By: #### L 100.0100, L500.4050 #### [facility] [address] [place], [address] GFR/1.73 sq M.predicted among non-blacks MDRD (S/P/Bld) [Vol rate/Area] 85 mL/min/{1.73_m2} Normal >60 [facility] Comment on above: Result Comment: Non- GFR Calc Performed By: #### L 100.0100, L500.4050 #### [facility] [address] [place], [address] Globulin (S) [Mass/Vol] 4.0 g/dL Normal 2.2-4.2 [facility] Comment on above: Performed By: #### L 100.0100, L500.4050 #### [facility] [address] [place], [address] Glucose [Mass/Vol] 103 mg/dL Normal 74-106 [facility] Comment on above: Result Comment: Fast ing Glucose result from 100 to 125 mg/dL suggests IMPAIRED HOMEOSTASIS per A.D.A. criteria. Performed By: #### L 100.0100, L500.4050 #### [facility] [address] [place], [address] Potassium [Moles/Vol] 4.1 mmol/L Normal 3.5-5.1 [facility] Comment on above: Performed By: #### L 100.0100, L500.4050 #### [facility] [address] [place], [address] Sodium [Moles/Vol] 135 mmol/L Low 136-145 [facility] Comment on above: Performed By: #### L 100.0100, L500.4050 #### [facility] [address] [place], [address] T PROT 7.1 g/dL Normal 6.4-8.2 [facility] Comment on above: Performed By: #### L 100.0100, L500.4050 #### [facility] [address] [place], [address] Urea nitrogen [Mass/Vol] 13 mg/dL Normal 7-18 [facility] Comment on above: Performed By: #### L 100.0100, L500.4050 #### [facility] [address] [place], [address] ALB Normal 3.2-5.0 [facility] Comment on above: Result Comment: DUPL ICATE ORDER. Performed By: #### L 100.0100, L500.4050 ####[facility] [address] [place], [address] ALK P Normal 45-117 [facility] Comment on above: Result Comment: DUPL ICATE ORDER. Performed By: #### L 100.0100, L500.4050 ####[facility] [address] [place], [address] ALT Normal 16-61 [facility] Comment on above: Result Comment: DUPL ICATE ORDER. Performed By: #### L 100.0100, L500.4050 ####[facility] [address] [place], [address] AST Normal 15-37 [facility] Comment on above: Result Comment: DUPL ICATE ORDER. Performed By: #### L 100.0100, L500.4050 ####[facility] [address] [place], [address] BUN Normal 7-18 [facility] Comment on above: Result Comment: DUPL ICATE ORDER. Performed By: #### L 100.0100, L500.4050 ####[facility] [address] [place], [address] BUN/CRE Normal 10-20 [facility] Comment on above: Result Comment: DUPL ICATE ORDER. Performed By: #### L 100.0100, L500.4050 ####[facility] [address] [place], [address] CA,Total Normal 8.5-10.1 [facility] Comment on above: Result Comment: DUPL ICATE ORDER. Performed By: #### L 100.0100, L500.4050 ####[facility] [address] [place], [address] CL Normal 98-107 [facility] Comment on above: Result Comment: DUPL ICATE ORDER. Performed By: #### L 100.0100, L500.4050 ####[facility] [address] [place], [address] CO2 Normal 21.0-32.0 [facility] Comment on above: Result Comment: DUPL ICATE ORDER. Performed By: #### L 100.0100, L500.4050 ####[facility] [address] [place], [address] CREAT,SERUM Normal 0.70-1.30 [facility] Comment on above: Result Comment: DUPL ICATE ORDER. Performed By: #### L 100.0100, L500.4050 ####[facility] [address] [place], [address] EST GFR Normal >60 [facility] Comment on above: Result Comment: DUPL ICATE ORDER. Performed By: #### L 100.0100, L500.4050 ####[facility] [address] [place], [address] EST GFR - AA Normal >60 [facility] Comment on above: Result Comment: DUPL ICATE ORDER. Performed By: #### L 100.0100, L500.4050 ####[facility] [address] [place], [address] GAP Normal 5-15 [facility] Comment on above: Result Comment: DUPL ICATE ORDER. Performed By: #### L 100.0100, L500.4050 ####[facility] [address] [place], [address] GLU Normal 74-106 [facility] Comment on above: Result Comment: DUPL ICATE ORDER. Performed By: #### L 100.0100, L500.4050 ####[facility] [address] [place], [address] Potassium Normal 3.5-5.1 [facility] Comment on above: Result Comment: DUPL ICATE ORDER. Performed By: #### L 100.0100, L500.4050 ####[facility] [address] [place], [address] T BILI Normal 0.20-1.00 [facility] Comment on above: Result Comment: DUPL ICATE ORDER. Performed By: #### L 100.0100, L500.4050 ####[facility] [address] [place], [address] T PROT Normal 6.4-8.2 [facility] Comment on above: Result Comment: DUPL ICATE ORDER. Performed By: #### L 100.0100, L500.4050 ####[facility] [address] [place], [address] Comprehensive Metabolic Profil Normal 136-145 [facility] Comment on above: Result Comment: DUPL ICATE ORDER. Performed By: #### L 100.0100, L500.4050 ####[facility] [address] [place], [address] Determination of erythrocyte mean corpuscular volume (MCV)Ordered By: Flor Carbajal on 12-05-2023 MCV (RBC) [Entitic vol] 86.0 fL Normal 80-94 [facility] Comment on above: Performed By: #### L 100.0100, L500.4050 #### [facility] [address] [place], [address] Emergency Department Summary on 12-05-2023 Emergency Department Summary [facility] Medical Records Department [address] [place] [address] Emergency Department Summary 12/05/23 MR#: [id number] Acct: [id number] Name: KATALINA HAWLEY Rep #: [id number] : 1985 38 From: Flor Carbajal DO PCP: [facility] Status:REG ER Location: ED HPI HPI - GI History of Present Illness Chief Complaint: Abd Pain Detail of Chief Complaint: Abdominal pain Informant: patient Abdominal Pain/Flank Pain Current Severity: 05/03 Narrative Narrative: Patient presents to the emergency department complaint of abdominal pain for the last 4 days. Pains been continuous. Now pain worse with coughing and movement. He denies fever. No diarrhea. He did have 1 episode of bloody stool yesterday that was bright red. No family history of inflammatory bowel disease such as Crohn's or ulcerative colitis. Denies urinary symptoms. He tells me his mother had a 30 pound cyst on her gallbladder years ago and he became concerned. Decreased appetite. No prior abdominal surgeries. PFSH PFSH Home Medications NK 12/05/23 [History Last Taken Unknown] Allergy/AdvReac Type Severity Reaction Status Date / Time bee venom protein (honey bee) Allergy Severe Anaphylaxis Verified 12/05/23 09:23 guaifenesin [From Robitussin] Allergy THROAT Verified 12/05/23 09:23 SWELLING Penicillins Allergy THROAT Verified 12/05/23 09:23 SWELLING Social History household members: family Smoking Status: Current every day smoker tobacco type: cigarettes alcohol intake: current ROS ROS ED Review of Systems ROS Unobtainable: other Constitutional Constitutional ED: Reports lethargy; Denies chills, fever(s), sweats or weight loss Eyes Eyes: Denies blurry vision, change in vision or diplopia ENT ENT ED: Denies rhinorrhea or sore throat Cardiovascular Cardiovascular: Reports chest pain and racing heartbeat; Denies orthopnea Respiratory/Chest Respiratory/Chest: Denies cough, dyspnea, dyspnea on exertion, orthopnea or sputum Gastrointestinal Gastrointestinal: Reports abdominal pain and nausea; Denies diarrhea or vomiting Genitourinary Genitourinary ED: Denies dysuria, hematuria or urinary frequency Musculoskeletal Musculoskeletal: Denies arthralgias, back pain, myalgias or neck pain Integumentary Denies abscess, Abrasions or rash Neurologic Neurologic: Denies headache(s) or weakness Psychiatric Psychiatric: Denies anxiety, depression or suicidal thoughts Endocrine Endocrinology: Denies polydipsia, polyphagia or polyuria Hematologic/Lymphatic Hematologic/Lymphatic: Denies easy bleeding, easy bruising or lymphadenopathy Allergic/Immunologic Allergic/Immunologic ED: Denies mouth swelling, tongue swelling or urticaria EXAM Physical Exam Const Vital Signs: 12/05/23 09:23 12/05/23 13:22 Temperature 97.9 F Temperature Source Temporal Pulse Rate 66 74 Respiratory Rate 18 14 Blood Pressure 122/65 H 120/79 Blood Pressure Mean 84 92 Pulse Ox 98 99 Oxygen Delivery Method Room Air Room Air Positive well nourished and well developed General Appearance ED: well developed and NAD HEENT Reports TM's clear and moist mucous membranes normocephalic and atraumatic; Negative for trauma or tenderness Tympanic Membrane ED: Yes TM's clear Eyes PERRL and EOMs intact bilaterally General Eye ED: Negative for pale conjunctiva or scleral icterus Neck no lymphadenopathy, supple and no JVD General: Negative for tenderness Chest Wall inspection of chest normal and palpation of chest normal Chest: Negative for tenderness Resp normal respiratory effort and clear to auscultation bilaterally Effort and Inspection: Negative for respiratory distress or pain with movement Auscultation: Negative for rhonchi, wheezes or diminished lung sounds Cardio regular rate, regular rhythm, S1 normal heart sound, S2 normal heart sound and no murmurs Peripheral Pulses: pulses 2+ throughout GI normal to inspection, nondistended, normoactive bowel sounds, soft to palpation, non-distended and no masses GI Narrative: Diffuse tenderness palpation over right upper quadrant and right lower quadrant with guarding. There is no rigidity. He does have some mild rebound. Back/Spine no CVA tenderness and no thoracic nor lumbar tenderness Extremity normal to inspection General Extremety ED: Negative for edema General Extremity: Negative for edema Neuro oriented x3, CN's II-XII intact bilaterally, no sensory deficits noted and gait normal Sensorium / Orientation: awake, alert, oriented to person, oriented to place and oriented to time Motor Exam: strength 5/5 throughout and strength abnormal Psych mental status grossly normal Skin no rashes or lesions noted and no wounds MDM MDM MDM Narrat (more content not included)... Normal [facility] Erythrocyte Sed Rateon 12-04 SED RATE 12 mm/hr Normal 0-20 [facility] Comment on above: Performed By: #### L 101.9900, L501.6710 #### [facility] [address] [place], [address] Erythrocyte distribution wid th ratioOrdered By: Flor Carbajal on 12-05-2023 Erythrocyte distribution width (RBC) [Ratio] 13.8 % Normal 11.6-14.6 [facility] Comment on above: Performed By: #### L 100.0100, L500.4050 #### [facility] [address] [place], [address] Erythrocyte distribution wid th standard deviationOrdered By: Saraus Carbajal on 12-05-2023 Erythrocyte distribution width (RBC) [Entitic vol] 42.8 fL 35.1-43.9 [facility] Erythrocyte sedimentation ra teOrdered By: Flor Carbajal on 12-05-2023 ESR (Bld) [Velocity] 12 mm/h 0-20 [facility] H AND P Exam - Surgicalon H&P Exam - Surgical [facility] Medical Records Department [address] [place] [address] H P Exam - Surgical 12/05/23 1513 MR#: [id number] Acct: [id number] Name: KATALINA HAWLEY Rep #: [id number] : 1985 38 From: Julien Alcaraz MD [facility] Status:REG ER Location: ED HPI - General HPI Narrative KATALINA HAWLEY, is a 38 M who presents with abdominal pain of 4-day duration. Patient says that the pain started 4 days ago and it goes from his mid right chest down to his mid right abdomen. He says it also radiates to the back. He says he gets nauseated if he coughs a lot. He has been having a worsening cough for the last week. He also reports that he has not had any vomiting. He said he had a bloody bowel movement yesterday with bright red blood in it. He says this does not normally happen. He says the pain comes and goes and is not constant. He denies fevers or chills. He denies migration of pain. [facility] NK 12/05/23 [History Last Taken Unknown] Allergy/AdvReac Type Severity Reaction Status Date / Time bee venom protein (honey bee) Allergy Severe Anaphylaxis Verified 12/05/23 09:23 guaifenesin [From Robitussin] Allergy THROAT Verified 12/05/23 09:23 SWELLING Penicillins Allergy THROAT Verified 12/05/23 09:23 SWELLING Social History household members: family Smoking Status: Current every day smoker tobacco type: cigarettes alcohol intake: current ROS Constitutional Constitutional: Denies anorexia, chills, fatigue or fever(s) Eyes Eyes: Denies blurry vision ENT HEENT: Denies abnormal hearing Cardiovascular Cardiovascular: Denies chest pain Respiratory/Chest Respiratory/Chest: Reports cough; Denies dyspnea Gastrointestinal Gastrointestinal: Reports abdominal pain, hematochezia and nausea; Denies coffee ground emesis or vomiting Genitourinary Genitourinary: Denies change in urinary stream or difficulty urinating Musculoskeletal Musculoskeletal: Denies abnormal gait Integumentary Integumentary: Denies jaundice Neurologic Neurologic: Denies dizziness Psychiatric Psychiatric: Denies anxiety Endocrine Endocrinology: Denies heat intolerance Vital Signs Vital Signs Vital Signs: 12/05/23 09:23 12/05/23 13:22 Temperature 97.9 F Temperature Source Temporal Pulse Rate 66 74 Respiratory Rate 18 14 Blood Pressure 122/65 H 120/79 Blood Pressure Mean 84 92 Pulse Ox 98 99 Oxygen Delivery Method Room Air Room Air Weight Weight: 185 lb Body Mass Index (BMI) 22.5 Physical Exam Const oriented x3 and no apparent distress Resp normal respiratory effort Cardio regular rate and regular rhythm GI soft to palpation Inspection: Negative for abdominal distention Palpation: tender RUQ Extremity normal to inspection Results Lab / Micro Data 12/05/23 09:45 12/05/23 09:45 Labs: Laboratory Results - last 24 hr 12/05/23 09:45: WBC Cancelled 12/05/23 09:45: WBC 8.9, Corrected WBC Cancelled, RBC Cancelled 12/05/23 09:45: RBC 4.85, Hgb Cancelled 12/05/23 09:45: Hgb 13.6, Hct Cancelled 12/05/23 09:45: Hct 41.7, MCV Cancelled 12/05/23 09:45: MCV 86.0, MCH Cancelled 12/05/23 09:45: MCH 28.0, MCHC Cancelled 12/05/23 09:45: MCHC 32.6, RDW Std Deviation Cancelled 12/05/23 09:45: RDW Std Deviation 42.8, RDW Coeff of Angel Cancelled 12/05/23 09:45: RDW Coeff of Angel 13.8, Plt Count Cancelled 12/05/23 09:45: Plt Count 308, MPV Cancelled 12/05/23 09:45: MPV 9.3, Immature Gran % (Auto) Cancelled 12/05/23 09:45: Immature Gran % (Auto) 0.600, Neut % (Auto) Cancelled 12/05/23 09:45: Neut % (Auto) 69.1, Lymph % (Auto) Cancelled 12/05/23 09:45: Lymph % (Auto) 19.0, Gillespie % (Auto) Cancelled 12/05/23 09:45: Gillespie % (Auto) 10.6 H, Eos % (Auto) Cancelled 12/05/23 09:45: Eos % (Auto) 0.0, Baso % (Auto) Cancelled 12/05/23 09:45: Baso % (Auto) 0.7, Absolute Neuts (auto) Cancelled 12/05/23 09:45: Absolute Neuts (auto) 6.2, Absolute Lymphs (auto) Cancelled 12/05/23 09:45: Absolute Lymphs (auto) 1.70, Total Counted Cancelled, Neutrophils % (Manual) Cancelled, Band Neutrophils % Cancelled, Lymphocytes % (Manual) Cancelled, Monocytes % (Manual) Cancelled, Eosinophils % (Manual) Cancelled, Basophils % (Manual) Cancelled, Metamyelocytes % Cancelled, Myelocytes % Cancelled, Promyelocytes % Cancelled, Blast Cells % Cancelled, Plasma Cell % (Manual) Cancelled, Other Cells % Cancelled, Nucleated RBC % Cancelled 12/05/23 09:45: Nucleated RBC % 0, Nucleated RBCs/100 WBC Cancelled, Differential Comment Cancelled, Diff Path Review Cancelled, Hypersegmented Neuts Cancelled, Atypical Lymphocytes Cancelled, Reactive Lymphocytes Cancelled, Smudge Cells Cancelled, Toxic Granulation Cancelled, Toxic Vacuolation Cancelled, Dohle Bodies Cancelled, Aue (more content not included)... Normal [facility] Immature granulocytes/100 WB C Auto (Bld)Ordered By: Flor Carbajal on 12-05-2023 Immature granulocytes/100 WBC (Bld) 0.600 % 0.0-0.9 [facility] Comment on above: IG% - Immature Granu locytes (promyelocytes, myelocytes and metamyelocytes) > 1% indicates that a LEFT SHIFT is Present. Ketones Test strip Ql (U)Ord ered By: Flor Carbajal on 12-05-2023 Ketones Ql (U) 15 mg/dl Negative [facility] - Chemistry and C hemistry - challengeOrdered By: Flor Carbajal on 12-05-2023 Albumin/Globulin [Mass ratio] 0.8 {ratio} 0.9-2.4 [facility] ALP [Catalytic activity/Vol] 80 U/L 45-117 [facility] ALT [Catalytic activity/Vol] 15 U/L 16-61 [facility] CO2 [Moles/Vol] 27.0 mmol/L 21.0-32.0 [facility] Globulin (S) [Mass/Vol] 4.0 g/dL 2.2-4.2 [facility] Urea nitrogen/Creatinine [Mass ratio] 12.4 mg/mg 10-20 [facility] - Hematology and Cell countsOrdered By: Flor Carbajal on 12-05-2023 Nucleated RBC/100 WBC (Bld) [Ratio] 0 % 0-5 [facility] Mucus LM Ql (Urine sed)Order ed By: Flor Carbajal on 12-05-2023 Mucus Ql (Urine sed) 0 SEEN /hpf [facility] Nitrite Test strip Ql (U)Ord ered By: Flor Carbajal on 12-05-2023 Nitrite Ql (U) Positive Negative [facility] No Panel InformationOrdered By: Flor Carbajal on 12-05-2023 Urine RBC 0 SEEN /hpf 0-5 [facility] C-Reactive Protein Extended Range 88.00 mg/L 0.0-3.0 [facility] Comment on above: C-Reactive Protein ( CRP) provides useful information for thediagnosis, therapy and monitoring of inflammatory processesand associated diseases. For the evaluation of Relative Riskfor Cardiovascular Disease, a High Sensitivity CRP (HSCRP)should be ordered. Estimated Creatinine Clearance Calc 115.44 ml/min [facility] Estimated GFR (MDRD) Amer 103 mL/min >60 [facility] Comment on above: GFR Calc Estimated GFR (MDRD) Non-Af Amer 85 mL/min >60 [facility] Comment on above: Non- GFR Calc Protein Test strip Ql (U)Ord ered By: Flor Carbajal on 12-05-2023 Protein Ql (U) 30 mg/dl Negative [facility] Serum or plasma calcium arina urement (mass/volume)Ordered By: Flor Carbajal on 12-05-2023 Calcium [Mass/Vol] 8.9 mg/dL 8.5-10.1 [facility] Serum or plasma creatinine m easurement (mass/volume)Ordered By: Flor Carbajal on 12-05-2023 Creatinine [Mass/Vol] 1.05 mg/dL 0.70-1.30 [facility] Comment on above: The validity of the calculated GFR & GFRAA in patients over 70 years has not been determined. Clinical correlation is essential. Serum or plasma urea nitroge n measurement (mass/volume)Ordered By: Flor Carbajal on 12-05-2023 Urea nitrogen [Mass/Vol] 13 mg/dL 7-18 [facility] Squamous epithelial cells de tection in urine sediment by light microscopyOrdered By: Flor Carbajal on 12-05-2023 Epithelial cells.squamous LM Ql (Urine sed) 0 SEEN /hpf 0-5 [facility] Thin prep Papanicolaou smear with manual screeningOrdered By: Flor Carbajal on 12-05-2023 Thin prep Papanicolaou smear with manual screening 3.1 g/dL 3.2-5.0 [facility] Thin prep Papanicolaou smear with manual screening 12 U/L 15-37 [facility] Thin prep Papanicolaou smear with manual screening 4 5-15 [facility] Urinalysis, Completeon 12-04 BACTERIA 1+ /hpf Normal None Seen [facility] Comment on above: Order Comment: COLOR OF URINE MAY AFFECT DIPSTICK RESULTS.FINISHER SPECIAL STOCKS TO SPECIFY Performed By: #### L 400.0001 ####[facility] [address] [place], [place], [id number] WBC 0-5 SEEN Normal 0-5 [facility] Comment on above: Order Comment: COLOR OF URINE MAY AFFECT DIPSTICK RESULTS.FINISHER SPECIAL STOCKS TO SPECIFY Performed By: #### L 400.0001 ####[facility] [address] [place], [address] EPI,SQUAMOUS 0 SEEN Normal 0-5 [facility] Comment on above: Order Comment: COLOR OF URINE MAY AFFECT DIPSTICK RESULTS.FINISHER SPECIAL STOCKS TO SPECIFY Performed By: #### L 400.0001 ####[facility] [address] [place], [address] Mucus Ql (Urine sed) 0 SEEN Normal [facility] Comment on above: Order Comment: COLOR OF URINE MAY AFFECT DIPSTICK RESULTS.FINISHER SPECIAL STOCKS TO SPECIFY Performed By: #### L 400.0001 ####[facility] [address] [place], [address] RBC 0 SEEN Normal 0-5 [facility] Comment on above: Order Comment: COLOR OF URINE MAY AFFECT DIPSTICK RESULTS.FINISHER SPECIAL STOCKS TO SPECIFY Performed By: #### L 400.0001 ####[facility] [address] [place], [address] Urine blood detectionOrdered By: Flor Carbajal on 12-05-2023 RBC Ql (U) 10 /ul Negative [facility] Urine clarityOrdered By: Sara Carabjal on 12-05-2023 Clarity (U) Clear Clear [facility] Urine color determinationOrd ered By: Flor Carbajal on 12-05-2023 Color (U) Brandy Yellow [facility] Urine glucose detectionOrder ed By: Flor Carbajal on 12-05-2023 Glucose Ql (U) Normal mg/dl Normal [facility] Urine leukocyte esterase det ection by dipstickOrdered By: Flor Carbajal on 12-05-2023 Leukocyte esterase Test strip Ql (U) 25 /ul Negative [facility] Urine pHOrdered By: Flor Metz gur on 12-05-2023 pH (U) 5.0 [pH] 5.0 - 8.0 [facility] Urine sediment bacteria coun t by microscopy (number/high power field)Ordered By: Flor Carbajal on 12-05-2023 Bacteria LM.HPF (Urine sed) [#/Area] 1 /[HPF] None Seen [facility] Urine specific gravity measu rementOrdered By: Flor Carbajal on 12-05-2023 Specific gravity (U) [Rel density] 1.025 1.002-1.030 [facility] Urine urobilinogen measureme ntOrdered By: Flor Carbajal on 12-05-2023 Urobilinogen Ql (U) 4 mg/dl Normal [facility] Emergency Department Summary on 11-28-2023 Emergency Department Summary [facility] Medical Records Department [address] [place] [address] Emergency Department Summary 11/28/23 MR#: [id number] Acct: [id number] Name: KATALINA HAWLEY Rep #: [id number] : 1985 38 From: Thor uRiz INVESTIGATOR CLAIMSAdrien PCP: Care Physician,No Primary Status:DEP ER Location: ED HPI History of Present Illness Chief Complaint: Wound Narrative Narrative: Patient is a 38-year-old male with history of IV drug abuse who has been clean for 9 years who is still in the 180 program presenting to the emergency department for lesions to his right hand, right lower leg. Patient states they are constant scabs however sometimes they do get more inflamed and red. Patient states sometimes he feels there is infected hairs, they come up as looking like pimples. Patient denies any fever chills nausea or vomiting. Patient states he no longer injects medication. [facility] Home Medications doxycycline hyclate 100 mg capsule 100 mg PO BID #20 caps 11/28/23 [Rx Last Taken Unknown] Allergy/AdvReac Type Severity Reaction Status Date / Time bee venom protein (honey bee) Allergy Severe Anaphylaxis Verified 11/28/23 18:14 guaifenesin [From Robitussin] Allergy THROAT Verified 11/28/23 18:14 SWELLING Penicillins Allergy THROAT Verified 11/28/23 18:14 SWELLING Social History household members: family Smoking Status: Current every day smoker tobacco type: cigarettes alcohol intake: current ROS ROS ED ROS Narrative Constitutional: Negative for fever, chills, weight loss, weakness Eyes: Negative for vision loss, vision change, double vision ENT: Negative for any sore throat, ear pain, congestion Cardiovascular: Negative for any chest pain, tightness, palpitations Respiratory: Negative for any cough, sputum production, hemoptysis, dyspnea, dyspnea on exertion, orthopnea Gastrointestinal: Negative for any abdominal pain, nausea, vomiting, diarrhea, constipation, blood in stool, blood in vomit : Negative for any urinary frequency, dysuria, retention, blood in urine Muscle skeletal: Negative for any neck pain, back pain Neurological: Negative for any headache, syncope, dizziness Skin: Negative for any rashes, itching, abrasions, lacerations. Positive for lesions to the right thumb, right wrist, right lower leg Psychiatric: Negative for any depression, anxiety, stress, suicidal ideation, homicidal ideation Hematologic: Negative for any excessive bruising, easy bleeding EXAM Physical Exam Narrative Exam Narrative: Vital signs reviewed. Extremities: No peripheral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 [Ratio] 25.4 kg/m2 [facility] Work Phone: [facility] 01-11-2025 10:04-0400 Body temperature 98.3 [degF] [facility] Work Phone: [facility] 01-11-2025 10:04-0400 Body weight 94.89 kg [facility] Work Phone: [facility] 01-11-2025 10:04-0400 Diastolic blood pressure 70 mm[Hg] [facility] Work Phone: [facility] 01-11-2025 10:04-0400 Heart rate 79 /min [facility] Work Phone: [facility] 01-11-2025 10:04-0400 Respiratory rate 16 /min [facility] Work Phone: [facility] 01-11-2025 10:04-0400 SaO2% (BldA) [Mass fraction] 98 % [facility] Work Phone: [facility] 01-11-2025 10:04-0400 Systolic blood pressure 99 mm[Hg] [facility] Work Phone: [facility] 12-05-2023 19:43-0400 Body temperature 97.1 [degF] Dr. Flor Carbajal Work Phone: [facility] 12-05-2023 19:43-0400 Diastolic blood pressure 64 mm[Hg] Dr. Flor Carbajal Work Phone: [facility] 12-05-2023 19:43-0400 Heart rate 76 /min Dr. Flor Carbajal Work Phone: [facility] 12-05-2023 19:43-0400 Respiratory rate 16 /min Dr. Flor Carbajal Work Phone: [facility] 12-05-2023 19:43-0400 SaO2% (BldA) [Mass fraction] 95 % Dr. Flor Carbajal Work Phone: [facility] 12-05-2023 19:43-0400 Systolic blood pressure 112 mm[Hg] Dr. Flor Carbajal Work Phone: [facility] 12-05-2023 09:23-0400 Body height 193.[address] Flor Carbajal Work Phone: [facility] 12-05-2023 09:23-0400 Body mass index (BMI) [Ratio] 22.5 kg/m2 Dr. Flor Carbajal Work Phone: [facility] 12-05-2023 09:23-0400 Body weight 83.[address] Flor Carbajal Work Phone: [facility] 11-28-2023 21:41-0400 Body temperature 99 [degF] [facility] 11-28-2023 21:41-0400 Diastolic blood pressure 60 mm[Hg] [facility] 11-28-2023 21:41-0400 Heart rate 98 /min [facility] 11-28-2023 21:41-0400 Respiratory rate 18 /min [facility] 11-28-2023 21:41-0400 SaO2% (BldA) [Mass fraction] 96 % [facility] 11-28-2023 21:41-0400 Systolic blood pressure 114 mm[Hg] [facility] 11-28-2023 18:13-0400 Body height 193.04 cm [facility] 11-28-2023 18:13-0400 Body mass index (BMI) [Ratio] 24.8 kg/m2 [facility] 11-28-2023 18:13-0400 Body weight 92.53 kg [facility] 09-30-2023 21:03-0500 Body temperature 97 [degF] [facility] 09-30-2023 21:03-0500 Diastolic blood pressure 76 mm[Hg] [facility] 09-30-2023 21:03-0500 Heart rate 81 /min [facility] 09-30-2023 21:03-0500 Respiratory rate 18 /min [facility] 09-30-2023 21:03-0500 SaO2% (BldA) [Mass fraction] 99 % [facility] 09-30-2023 21:03-0500 Systolic blood pressure 118 mm[Hg] [facility] 09-30-2023 19:33-0500 Body height 193.04 cm [facility] 09-30-2023 19:33-0500 Body mass index (BMI) [Ratio] 26.2 kg/m2 [facility] 09-30-2023 19:33-0500 Body weight 97.6 kg [facility] 06-30-2023 22:43-0500 Respiratory rate 16 /min [facility] 06-30-2023 22:42-0500 Heart rate 80 /min [facility] 06-30-2023 22:42-0500 SaO2% (BldA) [Mass fraction] 98 % [facility] 06-30-2023 20:51-0500 Body height 193.04 cm [facility] 06-30-2023 20:51-0500 Body mass index (BMI) [Ratio] 22.2 kg/m2 [facility] 06-30-2023 20:51-0500 Body temperature 97.9 [degF] [facility] 06-30-2023 20:51-0500 Body weight 83 kg [facility] 06-30-2023 20:51-0500 Diastolic blood pressure 87 mm[Hg] [facility] 06-30-2023 20:51-0500 Systolic blood pressure 113 mm[Hg] [facility] 03-01-2023 18:27-0400 Body height 193.04 cm [facility] 03-01-2023 18:27-0400 Body mass index (BMI) [Ratio] 26.6 kg/m2 [facility] 03-01-2023 18:27-0400 Body temperature 97.8 [degF] [facility] 03-01-2023 18:27-0400 Body weight 99.33 kg [facility] 03-01-2023 18:27-0400 Diastolic blood pressure 77 mm[Hg] [facility] 03-01-2023 18:27-0400 Heart rate 84 /min [facility] 03-01-2023 18:27-0400 Respiratory rate 18 /min [facility] 03-01-2023 18:27-0400 SaO2% (BldA) [Mass fraction] 99 % [facility] 03-01-2023 18:27-0400 Systolic blood pressure 127 mm[Hg] [facility] 02-28-2023 20:06-0400 Body height 193.04 cm [facility] 02-28-2023 20:06-0400 Body mass index (BMI) [Ratio] 27.6 kg/m2 [facility] 02-28-2023 20:06-0400 Body temperature 98 [degF] [facility] 02-28-2023 20:06-0400 Body weight 102.71 kg [facility] 02-28-2023 20:06-0400 Diastolic blood pressure 72 mm[Hg] [facility] 02-28-2023 20:06-0400 Heart rate 81 /min [facility] 02-28-2023 20:06-0400 Respiratory rate 16 /min [facility] 02-28-2023 20:06-0400 SaO2% (BldA) [Mass fraction] 98 % [facility] 02-28-2023 20:06-0400 Systolic blood pressure 164 mm[Hg] [facility] 11-17-2021 18:33-0400 Body height 193 cm [facility] 11-17-2021 18:33-0400 Body mass index (BMI) [Ratio] 24.34 kg/m2 [facility] 11-17-2021 18:33-0400 Body weight 90.72 kg [facility] 11-17-2021 18:22-0400 Body temperature 98.2 [degF] [facility] 11-17-2021 18:22-0400 Diastolic blood pressure 74 mm[Hg] [facility] 11-17-2021 18:22-0400 Heart rate 96 /min [facility] 11-17-2021 18:22-0400 Respiratory rate 14 /min [facility] 11-17-2021 18:22-0400 SaO2% (BldA) [Mass fraction] 97 % [facility] 11-17-2021 18:22-0400 Systolic blood pressure 135 mm[Hg] [facility] Encounters Encounter Date Encounter Type Care Provider Facility Start: 01-11-2025 End: 01-11-2025 Emergency department patient visit [facility] Work Phone: -Emergency Department Work Phone: Start: 12-27-2023 End: 12-27-2023 ambulatory [facility] Facility:[facility] Start: 12-05-2023 End: 12-07-2023 ambulatory Julien Alcaraz Facility:[facility] Start: 12-05-2023 Evaluation and management of inpatient Dr. Flor Carbajal Work Phone: [facility] Work Phone: Start: 12-05-2023 End: 12-07-2023 ambulatory [facility] Facility:[facility] [place] [facility] Start: 12-05-2023 Non-patient / Non-visit Dr. Gracia Carbajal Work Phone: [facility] Start: 11-28-2023 End: 11-28-2023 Emergency department patient visit [facility] Work Phone: Start: 09-30-2023 End: 09-30-2023 Emergency department patient visit [facility] Work Phone: Start: 06-30-2023 End: 06-30-2023 Emergency department patient visit [facility] Work Phone: Start: 03-01-2023 End: 03-01-2023 Emergency department patient visit [facility] Work Phone: Start: 02-28-2023 End: 02-28-2023 Emergency department patient visit [facility] Work Phone: Start: 11-17-2021 End: 11-17-2021 Emergency department patient visit [facility] Start: 11-17-2021 End: 11-17-2021 Emergency department patient visit [facility] Emergency Department Comment on above: Sprain of left ankle , unspecified ligament, initial encounter (Primary Dx) Procedures Date Procedure Procedure Detail Performing Clinician Start: 01-11-2025 Plain X-ray of scapula [facility] Work Phone: Start: 01-11-2025 Plain X-ray of shoulder [facility] Work Phone: Start: 12-05-[address] Flor Carbajal Work Phone: Start: 12-05-2023 CT of abdomen and pelvis with oral contrast Dr. Flor Carbajal Work Phone: Start: 12-05-2023 Computed tomography of abdomen and pelvis with intravenous contrast Dr. Flor Carbajal Work Phone: Start: 09-30-2023 X-ray of both feet Start: 11-17-2021 [facility] Start: 11-17-2021 Radex ankle complete minimum 3 views Start: 11-17-2021 Radex ankle complete minimum 3 views Katia NEVES Work Phone: History of cholecystectomy S/P laparoscopic cholecystectomy [facility] Work Phone: Plan of Treatment Date Care Activity Detail Author Start: 12-06-2023 Triacylglycerol lipase measurement [facility] Start: 12-06-2023 [facility] Start: 12-05-2023 Ambulation without limitation [facility] Start: 12-05-2023 Following clinical pathway protocol [facility] Start: 12-05-2023 Radionuclide study of abdomen [facility] Start: 12-05-2023 Vital signs measurements [facility] Start: 12-05-2023 [facility] Start: 12-05-2023 Admission procedure [facility] Start: 11-28-2023 [facility] Start: 09-30-2023 [facility] Start: 06-30-2023 [facility] Start: 03-25-2022 Influenza vaccination Flu vaccine (Season Ended) [facility] Start: 11-18-2006 DTaP/Tdap/Td vaccine (1 - Tdap) DTaP/Tdap/Td vaccine (1 - Tdap) [facility] Start: 11-18-2005 Hepatitis C screening Hepatitis C screen [facility] Start: 11-18-2002 HIV screening HIV screen [facility] Start: 1999 Depression Screen Depression Screen [facility] Start: 11-18-1992 COVID-19 Vaccine (1) COVID-19 Vaccine (1) [facility] Start: 11-18-1988 Varicella vaccine (1 of 2 - 2-dose childhood series) Varicella vaccine (1 of 2 - 2-dose childhood series) [facility] Alanine aminotransfe rase [Enzymatic activity/volume] in Serum or Plasma [facility] Albumin [Mass/volume ] in Serum or Plasma [facility] Alkaline phosphatase [Enzymatic activity/volume] in Serum or Plasma [facility] Anion gap measurement [facility] Aspartate aminotrans ferase [Enzymatic activity/volume] in Serum or Plasma [facility] Bilirubin, total measurement [facility] BUN/Creatinine ratio [facility] Calcium [Mass/volume ] in Serum or Plasma [facility] Carbon dioxide, tota l [Moles/volume] in Serum or Plasma [facility] Chloride [Moles/volu me] in Serum or Plasma [facility] Creatinine [Moles/vo lume] in Serum or Plasma [facility] Erythrocyte mean cor puscular volume determination [facility] Glucose [Mass/volume ] in Serum or Plasma [facility] Hematocrit [Volume F raction] of Blood [facility] Hemoglobin [Mass/vol ume] in Blood [facility] Leukocytes [#/volume ] in Blood [facility] Mean corpuscular hem oglobin concentration determination [facility] Mean corpuscular hem oglobin determination [facility] Measurement of renal function [facility] Neutrophil count [facility] Neutrophil percent differential count [facility] Patient Education [facility] Work Phone: Patient referral [facility] Work Phone: Platelets [#/volume] in Blood [facility] Potassium [Moles/vol ume] in Serum or Plasma [facility] Red blood cell count [facility] Red cell distributio n width determination [facility] Sodium [Moles/volume ] in Serum or Plasma [facility] Total protein measurement [facility] Urea nitrogen [Mass/ volume] in Serum or Plasma [facility] Immunizations Immunization Date Immunization Notes Care Provider Dionne evans 08-18-2009 novel [id number], preservative-free, injectable [facility] Work Phone: [facility] 08-24-2004 hepatitis B vaccine, pediatric or pediatric/adolescent dosage [facility] Work Phone: [facility] 03-20-2001 measles, mumps and rubella virus vaccine [facility] Work Phone: [facility] 03-20-2001 poliovirus vaccine, inactivated [facility] Work Phone: [facility] 06-30-1989 hepatitis B vaccine, pediatric or pediatric/adolescent dosage [facility] Work Phone: [facility] 02-24-1989 diphtheria, tetanus toxoids and acellular pertussis vaccine [facility] Work Phone: [facility] 02-24-1989 measles, mumps and rubella virus vaccine [facility] Work Phone: [facility] 02-24-1989 trivalent poliovirus vaccine, live, oral [facility] Work Phone: [facility] 06-24-1988 diphtheria, tetanus toxoids and acellular pertussis vaccine [facility] Work Phone: [facility] 04-29-1988 diphtheria, tetanus toxoids and acellular pertussis vaccine [facility] Work Phone: [facility] 04-29-1988 trivalent poliovirus vaccine, live, oral [facility] Work Phone: [facility] 01-28-1988 diphtheria, tetanus toxoids and acellular pertussis vaccine [facility] Work Phone: [phone] [place] [address] 01-28-1988 trivalent poliovirus vaccine, live, oral [facility] Work Phone: [facility] Payers Date Payer Category Payer Unknown [id number] 2023 Self-pay [id number] Medicaid MEDICAID [id number] Unknown [id number] 2.16.8 [id number] Unknown [id number] 2.16.8 [id number] Unknown [id number] 2.16.8 [id number] Unknown [id number] 2.16.8 [id number] Unknown [id number] 2.16.8 [id number] Unknown [id number] 2.16.8 [id number] Unknown [id number] 2.16.8 [id number] Unknown [id number] 2.16.8 [id number] Unknown [facility] [id number] Social History Date Type Detail Facility Start: 11-17-2021 [facility] Phone: Start: 11-17-2021 Tobacco use and exposure Former smokeless tobacco user [facility] Phone: Start: 1985 Sex Assigned At Not on file [facility] Phone: Start: 11-07-2021 End: 11-17-2021 Exposure to SARS-CoV-2 (event) Not sure [facility] Phone: Start: 02-28-2023 End: 12-05-2023 Tobacco smoking status [facility] Unknown if ever smoked [facility] Start: 1985 Sex Assigned At Male [facility] Start: 01-11-2025 [facility] Sm[facility] tobacco daily (finding) [facility] Medical Equipment Procedure Code Equipment Code Equipment Original Text Equipment Identifier Dates Total cholecystectomy with exploration of common bile duct CLIP,VICK MONTALVO FDA Start: 12-06-2023 Total cholecystectomy with exploration of common bile duct CLIP,VICK MONTALVO FDA Start: 12-06-2023 Total cholecystectomy with exploration of common bile duct CLIP,VICK MONTALVO FDA Start: 12-06-2023 Clinical Notes 02-28-2023 to 01-11-2025 Note Date & Type Note Facility 01-11-2025 Discharge summary [facility] 01-11-2025 Radiology Diagnostic study note [facility] Imaging Services [address] [place], [place] [id number] Scapula MR#: [id number] Acct: [id number] Name: KATALINA HAWLEY Rep #: [id number] : 1985 M 39 From: Himanshu Mccracken MD PCP: [facility] Status: REG ER Study:Scapula Date of Exam: 01/11/25 Exam# [id number] Ordering Dr: Daryl Perez MD PROCEDURE: SCAPULA 01/11/2025 REASON FOR EXAM: TRAUMA TECHNIQUE: SCAPULA COMPARISON: None FINDINGS: There is good alignment. No fracture seen. RAD/Scapula IMPRESSION: Unremarkable examination. Reading Location: [place] [address] CC: Dr. Daryl Perez MD; [facility] ~ Oncology Research Rn: Signed [facility] 01-11-2025 Radiology Diagnostic study note [facility] Imaging Services [address] [place], [place] [id number] Shoulder min 2 Views MR#: [id number] Acct: [id number] Name: KATALINA HALWEY Rep #: [id number] : 1985 M 39 From: Shira Hardwick MD PCP: [facility] Status: PRE ER Study:Shoulder min 2 Views Date of Exam: 01/11/25 Exam# [id number] Ordering Dr: Daryl Perez MD PROCEDURE: SHOULDER MIN 2 VIEWS 01/11/2025 REASON FOR EXAM: INJURY TECHNIQUE: SHOULDER MIN 2 VIEWS COMPARISON: None RAD/Shoulder min 2 Views IMPRESSION: No acute fracture or dislocations. No acute soft tissue abnormalities. No radiographic foreign body. No significant degenerative changes. Reading Location: [facility] CC: Dr. Daryl Perez MD; [facility] ~ Oncology Research Rn: Signed [facility] [facility] 12-07-2023 Note [facility] Medical Records Department [address] [place] [address] Discharge Summary 12/07/23 0715 MR#: [id number] Acct: [id number] Name: KATALINA HAWLEY Rep #: [id number] : 1985 38 From: Julien Alcaraz MD PCP: [facility] Status:ADM IN [facility] Providers Date of Admission: 12/05/23 Primary Care Physician: [facility] Reason For Visit: ACUTE CHOLECYSTITIS Diagnosis Discharge Diagnosis (1) Acute cholecystitis: Status: Acute Code(s): K81.0 - Acute cholecystitis Plan: Patient is status post laparoscopic cholecystectomy for acute cholecystitis. Patient tolerating postoperative course well. Tolerating a diet. Pain is well-controlled. I will discharge him home and follow-up in 2 weeks. Julien Alcaraz MD Pager: [facility] [address] [place] [address], [address] [place] [address] Office: Medications at Discharge Home Medications NK 12/05/23 Hospital Course Operations cholecystecomy Summary of Care Provided Hospital Course: Patient was admitted with abdominal pain. The following morning a HIDA was obtained which showed decreased ejection fraction. Concern was for a calculus cholecystitis. He went for laparoscopic cholecystectomy yesterday afternoon. The gallbladder was very inflamed. The appendix appeared normal. After laparoscopic cholecystectomy patient was started on a diet and was tolerating a diet and his pain is well-controlled you be discharged home. Weight / BMI Weight Weight: 182 lb 8.684 oz Body Mass Index (BMI) 22.2 ABG / Lab / Microbiology Data 12/06/23 05:45 12/06/23 05:45 Laboratory: Laboratory Results - last 24 hr 12/06/23 12:32: POC Glucose 106 Radiography Diagnostic Testing: Radiology Impression Hepatobiliary Scan Nuclear Medicine 12/06/23 06:47 IMPRESSION: 1. ABNORMAL 99m Tc Mebrofenin hepatobiliary imaging examination with Cholecystokinin. A. A gallbladder ejection fraction calculated to be less than 35% following the administration of Cholecystokinin is consistent with the presence of functional hepatobiliary disease (gallbladder and/or sphincter of Oddi dyskinesia) and/or organic hepatobiliary disease (chronic acalculous cholecystitis and/or cystic duct syndrome) in patients with intermediate to high pretest likelihoods of hepatobiliary illness. (Lurdes Harrison et al, Journal of Nuclear Medicine 32:1695, 1991). B. 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 Electronically Signed: James Benjamin DO at 9:08 EDT , Cholangiogram 12/06/23 10:17 IMPRESSION: No evidence of constant filling defect in the common bile duct. Electronically Signed: Benton Macias MD at 15:18 EDT , D/C Instructions Discharge Diet: Light diet - advance as tolerated Discharge Activity: May Not Drive (for 2-3 days or while taking narcotic pain medications.) and - (Do not drive, work heavy equipment or sign legal documents for 24 hours.) May shower in (days): 1 Lifting Restrictions: 20 lbs for 2 weeks Additional Activity Instructions: Pain medication may cause nausea. You should typically eat light foods as you take your pain medications. Pain medication may also cause constipation. If this is a problem for you, please discuss with your doctor. Alternate ibuprofen and Tylenol for pain control Call your doctor if your incision/area has: Continuous Slow Oozing, Sudden Increased Bleeding, Increased Pain/ Swelling, Increased Redness and Foul Smelling Discharge Call your doctor if you observe: Fever of 101 or Higher Suture Line Care: Avoid Pulling/Pushing and Avoid Pinching/Bending Remove Dressing in: 2 days Additional Dressing/Incision Instructions: Leave operative bandaids on for 2 days. When you remove dressing, leave Steri-Strips on until your follow-up appointment, or until the Steri-Strips fall off on their own. Please Follow Up With: Julien Alcaraz MD When: Please call to schedule 2 week follow up appointment. [phone] Meaningful Use Info Meaningful Use Meaningful Use Diagnoses (Choose all that apply): None applicable Ischemic Stroke Statin Dosing Therapy Reference: STATIN DOSE THERAPY REFERENCE: * Patients > 75 years receive moderate or high dose statin therapy. * Patients 75 years or YOUNGER should receive HIGH intensity statin dose unless contraindicated. (more content not included)... [facility] 12-05-2023 History and physi don note Note Date/Time December 05, 2023 3:15pm [facility] Medical Records Department [address] [place] [address] H&P Exam - Surgical 12/05/23 1513 MR#: [id number] Acct: [id number] Name: KATALINA HAWLEY Rep #:[id number] : 1985 38 From: Julien chew MD PCP: [facility] St atus:REG ER Location: ED HPI - General HPI Narrative KATALINA HAWLEY, is a 38 M who presents with abdominal pain of 4-day duration. Patient says that the pain started 4 days ago and it goes from his mid right chest down to his mid right abdomen. He says it also radiates to the back. He says he gets nauseated if he coughs a lot. He has been having a worsening coughfor the last week. He also reports that he has not had any vomiting. He said he had a bloody bowel movement yesterday with bright red blood in it. He says this does not normally happen. He says the pain comes and goes and is not constant. He denies fevers or chills. He denies migration of pain. [facility] Home Medications NK 12/05/23 [History Last Taken Unknown] Allergy/AdvReac Type Severity Reaction Status Date / Time bee venom protein (honey bee) Allergy Severe Anaphylaxis Verified 12/05/23 09:23 guaifenesin [From Robitussin] Allergy THROAT Verified 12/05/23 09:23 SWELLING Penicillins Allergy THROAT Verified 12/05/23 09:23 SWELLING Social History household members: family Smoking Status: Current every day smoker tobacco type: cigarettes alcohol intake: current ROS Constitutional Constitutional: Denies anorexia, chills, fatigue or fever(s) Eyes Eyes: Denies blurry vision ENT HEENT: Denies abnormal hearing Cardiovascular Cardiovascular: Denies chest pain Respiratory/Chest Respiratory/Chest: Reports cough; Denies dyspnea Gastrointestinal Gastrointestinal: Reports abdominal pain, hematochezia and nausea; Denies coffeeground emesis or vomiting Genitourinary Genitourinary: Denies change in urinary stream or difficulty urinating Musculoskeletal Musculoskeletal: Denies abnormal gait Integumentary Integumentary: Denies jaundice Neurologic Neurologic: Denies dizziness Psychiatric Psychiatric: Denies anxiety Endocrine Endocrinology: Denies heat intolerance Vital Signs Vital Signs Vital Signs: 12/05/23 09:23 12/05/23 13:22 Temperature 97.9 F Temperature Source Temporal Pulse Rate 66 74 Respiratory Rate 18 14 Blood Pressure 122/65 H 120/79 Blood Pressure Mean 84 92 Pulse Ox 98 99 Oxygen Delivery Method Room Air Room Air Weight Weight: 185 lb Body Mass Index (BMI) 22.5 Physical Exam Const oriented x3 and no apparent distress Resp normal respiratory effort Cardio regular rate and regular rhythm GI soft to palpation Inspection: Negative for abdominal distention Palpation: tender RUQ Extremity normal to inspection Results Lab / Micro Data 12/05/23 09:45 12/05/23 09:45 Labs: Laboratory Results - last 24 hr 12/05/23 09:45: WBC Cancelled 12/05/23 09:45: WBC 8.9, Corrected WBC Cancelled, RBC Cancelled 12/05/23 09:45: RBC 4.85, Hgb Cancelled 12/05/23 09:45: Hgb 13.6, Hct Cancelled 12/05/23 09:45: Hct 41.7, MCV Cancelled 12/05/23 09:45: MCV 86.0, MCH Cancelled 12/05/23 09:45: MCH 28.0, MCHC Cancelled 12/05/23 09:45: MCHC 32.6, RDW Std Deviation Cancelled 12/05/23 09:45: RDW Std Deviation 42.8, RDW Coeff of Angel Cancelled 12/05/23 09:45: RDW Coeff of Angel 13.8, Plt Count Cancelled 12/05/23 09:45: Plt Count 308, MPV Cancelled 12/05/23 09:45: MPV 9.3, Immature Gran % (Auto) Cancelled 12/05/23 09:45: Immature Gran % (Auto) 0.600, Neut % (Auto) Cancelled 12/05/23 09:45: Neut % (Auto) 69.1, Lymph % (Auto) Cancelled 12/05/23 09:45: Lymph % (Auto) 19.0, Gillespie % (Auto) Cancelled 12/05/23 09:45: Gillespie % (Auto) 10.6 H, Eos % (Auto) Cancelled 12/05/23 09:45: Eos % (Auto) 0.0, Baso % (Auto) Cancelled 12/05/23 09:45: Baso % (Auto) 0.7, Absolute Neuts (auto) Cancelled 12/05/23 09:45: Absolute Neuts (auto) 6.2, Absolute Lymphs (auto) Cancelled 12/05/23 09:45: Absolute Lymphs (auto) 1.70, Total Counted Cancelled, Neutrophils % (Manual) Cancelled, Band Neutrophils % Cancelled, Lymphocytes % (Manual) Cancelled, Monocytes % (Manual) Cancelled, Eosinophils % (Manual) Cancelled, Basophils % (Manual) Cancelled, Metamyelocytes % Cancelled, Myelocytes % Cancelled, Promyelocytes % Cancelled, Blast Cells % Cancelled, Plasma Cell % (Manual) Cancelled, Other Cells % Cancelled, Nucleated RBC % Cancelled 12/05/23 09:45: Nucleated RBC % 0, Nucleated RBCs/100 WBC Cancelled, Differential Comment Cancelled, Diff Path Review Cancelled, Hypersegmented NeutsCancelled, Atypical Lymphocytes Cancelled, Reactive Lymphocytes Cancelled, Smudge Cells Cancelled, Toxic Granulation Cancelled, Toxic Vacuolation Cancelled, Dohle Bodies Cancelled, Dell Rods Cancelled, Platelet Estimate Cancelled, Plt Morphology Comment Cancelled, RBC Morphology Cancelled 12/05/23 09:45: RBC Morphology Cancelled, Polychromasia Cancelled, HypochromasiaCancelled, Basophilic Stippling Cancelled, Anisocytosis Cancelled, Microcytosis Cancelled, Macrocytosis Cancelled, Spherocytes Cancelled, Sickle Cells Cancelled, Target Cells Cancelled, Tear Drop Cells Cancelled, Ovalocytes Cancelled, Stomatocytes Cancelled, [place] Bodies Cancelled, Lincoln Cells Cancelled, Bite Cells Cancelled, Crenated Cell Cancelled, Acanthocytes (Spur) Cancelled, Rouleaux Cancelled, Schistocytes Cancelled, ESR 12, Sodium 135 L 12/05/23 09:45: Sodium Cancelled, Potassium 4.1 12/05/23 09:45: Potassium Cancelled, Chloride 104 12/05/23 09:45: Chloride Cancelled, Carbon Dioxide 27.0 12/05/23 09:45: Carbon Dioxide Cancelled, Anion Gap 4 L 12/05/23 09:45: Anion Gap Cancelled, BUN 13 12/05/23 09:45: BUN Cancelled, Creatinine 1.05 12/05/23 09:45: Creatinine Cancelled, Estim Creat Clear Calc 115.44 12/05/23 09:45: Estim Creat Clear Calc Cancelled, Est GFR (MDRD) Af Amer 103 12/05/23 09:45: Est GFR (MDRD) Af Amer Cancelled, Est GFR (MDRD) Non-Af 85 12/05/23 09:45: Est GFR (MDRD) Non-Af Cancelled, BUN/Creatinine Ratio 12.4 12/05/23 09:45: BUN/Creatinine Ratio Cancelled, Glucose 103 12/05/23 09:45: Glucose Cancelled, Calcium 8.9 12/05/23 09:45: Calcium Cancelled, Total Bilirubin 1.00 12/05/23 09:45: Total Bilirubin Cancelled, AST 12 L 12/05/23 09:45: AST Cancelled, ALT 15 L 12/05/23 09:45: ALT Cancelled, Alkaline Phosphatase 80 12/05/23 09:45: Alkaline Phosphatase Cancelled, C-React Prot Ext Range 88.00 H, Total Protein 7.1 12/05/23 09:45: Total Protein Cancelled, Albumin 3.1 L 12/05/23 09:45: Albumin Cancelled, Globulin 4.0 12/05/23 09:45: Globulin Cancelled, Albumin/Globulin Ratio 0.8 L 12/05/23 09:45: Albumin/Globulin Ratio Cancelled 12/05/23 10:00: Urine Color Brandy, Urine Clarity Clear, Urine pH 5.0, Ur Specific Gamerco 1.025, Urine Protein 30 H, Urine Glucose (UA) Normal, Urine Ketones 15 H, Urine Occult Blood 10 H, Urine Nitrite Positive H, Urine Bilirubin1 H, Urine Urobilinogen 4 H, Ur Leukocyte Esterase 25 H, Urine RBC 0 SEEN, UrineWBC 0-5 SEEN, Ur Squamous Epith Cells 0 SEEN, Urine Bacteria 1+, Urine Mucus 0 SEEN Imaging Radiology Impression Abdomen/Pelvis CT 12/05/23 09:42 IMPRESSION: 1. Trace of free fluid in the pelvis. 2. No focal acute inflammatory process. 3. The appendix is identified and difficult to evaluate. 4. Borderline hepatosplenomegaly. Electronically Signed: Benton Macias MD at 10:59 EDT , Abdomen CT 12/05/23 12:28 IMPRESSION: 1. Minimal fluid near the lower edge of the liver and right lower quadrant. 2. The appendix could not be definitely identified. 3. Otherwise no focal acute inflammatory process. Electronically Signed: Benton Macias MD at 14:19 EDT , Assessment & Plan Assessment/Plan (1) Abdominal pain: QUALIFIERS: Abdominal location: right upper quadrant Qualified Code(s): R10.11 - Right upper quadrant pain PLAN: Patient presents with abdominal pain of 4-day duration. He says the pain is going from his right flank down to his right mid abdomen. He says has been going on for 4 days and it comes and goes. It radiates to the back. He denies fevers or chills. I was called because the patient had 2 CT scans that did not identify the appendix. I discussed Eaton score with him and went through theentire thing. He says he is having some right lower quadrant tenderness but to me it seems little higher than right lower quadrant. He has been afebrile with no rebound tenderness. He is not having anorexia and he has been tolerating soda and eating. He has some nausea but only when he is coughing a lot and he just got over bronchitis but no vomiting. He has had no migration of pain. He has a normal white count with no left shift. By my count the patient has an Eaton score of 4 and is unlikely appendicitis. He does seem to have some pain alittle bit higher than I would expect for appendicitis and this could be gallbladder. I recommended a gallbladder ultrasound to evaluate. Julien Alcaraz MD Pager: [facility] [address] [facility], [address] [place], [place] [id number] Office: 12/05/231516 <Electronically signed by Julien Alcaraz MD> Cosigner Signature (if applicable): CC: Dr. Julien Alcaraz MD; [facility]~ Signed ADDENDUM by Dr. Julien Alcaraz MD on 12/05/23 at 1932 Addendum The patient had ultrasound which showed borderline thickening of the wall of thegallbladder and positive Elliott sign and there was concern for a calculus cholecystitis. Patient is still very tender in the right upper quadrant. I offered to admit him on antibiotics and observe overnight and order HIDA in the morning. Currently the patient is threatening to leave A unless he can go smoke cigarettes. If he decides to stay I will admit him and start him on IV fluids and IV antibiotics and order a HIDA test for the morning. If the HIDA is positive I will plan for laparoscopic cholecystectomy tomorrow afternoon. Julien Alcaraz MD Pager: [facility] [address] [facility], [address] [place], [place] [id number] Office: 12/05/231931<Electronically signed by Julien Alcaraz MD> Cosigner Signature (if applicable): cc: Dr. Julien Alcaraz MD; [facility] ~* Signed [facility] Work Phone: [phone]) 211-665005-13-2024 Discharge summary Author Naima Packer [facility] December 05, 2023 7:21pm Note Date/Time December 05, 2023 9:45a m [facility] Medical Records Department [address] [place] [address] Emergency Department Summary 12/05/23 MR#: [id number] Acct: [id number] Name: KATALINA HAWLEY Rep #:[id number] : 1985 38 From: Flor Carbajal DO [facility] atus[facility] ER Location: ED HPI HPI - GI History of Present Illness Chief Complaint: Abd Pain Detail of Chief Complaint: Abdominal pain Informant: patient Abdominal Pain/Flank Pain Current Severity: 05/03 Narrative Narrative: Patient presents to the emergency department complaint of abdominal pain for thelast 4 days. Pains been continuous. Now pain worse with coughing and movement. He denies fever. No diarrhea. He did have 1 episode of bloody stool yesterdaythat was bright red. No family history of inflammatory bowel disease such as Crohn's or ulcerative colitis. Denies urinary symptoms. He tells me his motherhad a 30 pound cyst on her gallbladder years ago and he became concerned. Decreased appetite. No prior abdominal surgeries. PFSH PFSH Home Medications NK 12/05/23 [History Last Taken Unknown] Allergy/AdvReac Type Severity Reaction Status Date / Time bee venom protein (honey bee) Allergy Severe Anaphylaxis Verified 12/05/23 09:23 guaifenesin [From Robitussin] Allergy THROAT Verified 12/05/23 09:23 SWELLING Penicillins Allergy THROAT Verified 12/05/23 09:23 SWELLING Social History household members: family Smoking Status: Current every day smoker tobacco type: cigarettes alcohol intake: current ROS ROS ED Review of Systems ROS Unobtainable: other Constitutional Constitutional ED: Reports lethargy; Denies chills, fever(s), sweats or weight loss Eyes Eyes: Denies blurry vision, change in vision or diplopia ENT ENT ED: Denies rhinorrhea or sore throat Cardiovascular Cardiovascular: Reports chest pain and racing heartbeat; Denies orthopnea Respiratory/Chest Respiratory/Chest: Denies cough, dyspnea, dyspnea on exertion, orthopnea or sputum Gastrointestinal Gastrointestinal: Reports abdominal pain and nausea; Denies diarrhea or vomiting Genitourinary Genitourinary ED: Denies dysuria, hematuria or urinary frequency Musculoskeletal Musculoskeletal: Denies arthralgias, back pain, myalgias or neck pain Integumentary Denies abscess, Abrasions or rash Neurologic Neurologic: Denies headache(s) or weakness Psychiatric Psychiatric: Denies anxiety, depression or suicidal thoughts Endocrine Endocrinology: Denies polydipsia, polyphagia or polyuria Hematologic/Lymphatic Hematologic/Lymphatic: Denies easy bleeding, easy bruising or lymphadenopathy Allergic/Immunologic Allergic/Immunologic ED: Denies mouth swelling, tongue swelling or urticaria EXAM Physical Exam Const Vital Signs: 12/05/23 09:23 12/05/23 13:22 Temperature 97.9 F Temperature Source Temporal Pulse Rate 66 74 Respiratory Rate 18 14 Blood Pressure 122/65 H 120/79 Blood Pressure Mean 84 92 Pulse Ox 98 99 Oxygen Delivery Method Room Air Room Air Positive well nourished and well developed General Appearance ED: well developed and NAD HEENT Reports TM's clear and moist mucous membranes normocephalic and atraumatic; Negative for trauma or tenderness Tympanic Membrane ED: Yes TM's clear Eyes PERRL and EOMs intact bilaterally General Eye ED: Negative for pale conjunctiva or scleral icterus Neck no lymphadenopathy, supple and no JVD General: Negative for tenderness Chest Wall inspection of chest normal and palpation of chest normal Chest: Negative for tenderness Resp normal respiratory effort and clear to auscultation bilaterally Effort and Inspection: Negative for respiratory distress or pain with movement Auscultation: Negative for rhonchi, wheezes or diminished lung sounds Cardio regular rate, regular rhythm, S1 normal heart sound, S2 normal heart sound and no murmurs Peripheral Pulses: pulses 2+ throughout GI normal to inspection, nondistended, normoactive bowel sounds, soft to palpation,non-distended and no masses GI Narrative: Diffuse tenderness palpation over right upper quadrant and right lower quadrant with guarding. There is no rigidity. He does have some mild rebound. Back/Spine no CVA tenderness and no thoracic nor lumbar tenderness Extremity normal to inspection General Extremety ED: Negative for edema General Extremity: Negative for edema Neuro oriented x3, CN's II-XII intact bilaterally, no sensory deficits noted and gait normal Sensorium / Orientation: awake, alert, oriented to person, oriented to place andoriented to time Motor Exam: strength 5/5 throughout and strength abnormal Psych mental status grossly normal Skin no rashes or lesions noted and no wounds MDM MDM MDM Narrative Medical decision making narrative: Patient was 42 history of abdominal pain worse with walking and moving. He did have an episode of rectal bleeding yesterday but has history of hemorrhoids and he did feel hemorrhoid at the time and showered and felt like things relaxed went back to normal. He had loss of appetite and just has not felt well. IV line established. Patient was medicated with morphine and Zofran. CBC with differential obtained showed a normal WBC count of 8.9 with no left shift. Chemistries and LFTs unremarkable. Urinalysis was positive for nitrites but no other signs of infection. Initially obtain a CT scan with IV contrast only but the appendix could not be visualized no other significant findings were noted. Repeated the CT with oral contrast and again the CT T does not show or visualizethe appendix but patient has some nondescript small amount of fluid right edge of the liver and right lower quadrant of unknown significance. This point patient was reevaluated at 1430 and continues to have right lower quadrant and right-sided abdominal pain. Etiology of his pain is unclear. I discussed case with general surgeon on-call Dr. Alcaraz who present to the emergency department to evaluate patient to help make disposition. Lab Data Attestation: I reviewed the patient's lab results. Labs: Laboratory Results - last 24 hr 12/05/23 12/05/23 12/05/23 09:45 09:45 09:45 WBC Cancelled 8.9 Corrected WBC Cancelled RBC Cancelled 4.85 Hgb Cancelled Hct MCV MCH MCHC RDW Std Deviation RDW Coeff of Angel Plt Count MPV Immature Gran % (Auto) Neut % (Auto) Lymph % (Auto) Gillespie % (Auto) Eos % (Auto) Baso % (Auto) Absolute Neuts (auto) Absolute Lymphs (auto) Total Counted Neutrophils % (Manual) Band Neutrophils % Lymphocytes % (Manual) Monocytes % (Manual) Eosinophils % (Manual) Basophils % (Manual) Metamyelocytes % Myelocytes % Promyelocytes % Blast Cells % Plasma Cell % (Manual) Other Cells % Nucleated RBC % Nucleated RBCs/100 WBC Differential Comment Diff Path Review Hypersegmented Neuts Atypical Lymphocytes Reactive Lymphocytes Smudge Cells Toxic Granulation Toxic Vacuolation Dohle Bodies Dell Rods Platelet Estimate Plt Morphology Comment RBC Morphology Polychromasia Hypochromasia Basophilic Stippling Anisocytosis Microcytosis Macrocytosis Spherocytes Sickle Cells Target Cells Tear Drop Cells Ovalocytes Stomatocytes [place] Bodies Atiya Cells Bite Cells Crenated Cell Acanthocytes (Spur) Rouleaux Schistocytes ESR Sodium Potassium Chloride Carbon Dioxide Anion Gap BUN Creatinine Estim Creat Clear Calc Est GFR (MDRD) Af Amer Est GFR (MDRD) Non-Af BUN/Creatinine Ratio Glucose Calcium Total Bilirubin AST ALT Alkaline Phosphatase Total Protein Albumin Globulin Albumin/Globulin Ratio Urine Color Urine Clarity Urine pH Ur Specific Gamerco Urine Protein Urine Glucose (UA) Urine Ketones Urine Occult Blood Urine Nitrite Urine Bilirubin Urine Urobilinogen Ur Leukocyte Esterase Urine RBC Urine WBC Ur Squamous Epith Cells Urine Bacteria Urine Mucus 12/05/23 12/05/23 12/05/23 09:45 09:45 09:45 WBC Corrected WBC RBC Hgb 13.6 Hct Cancelled 41.7 MCV Cancelled 86.0 MCH Cancelled MCHC RDW Std Deviation RDW Coeff of Angel Plt Count MPV Immature Gran % (Auto) Neut % (Auto) Lymph % (Auto) Gillespie % (Auto) Eos % (Auto) Baso % (Auto) Absolute Neuts (auto) Absolute Lymphs (auto) Total Counted Neutrophils % (Manual) Band Neutrophils % Lymphocytes % (Manual) Monocytes % (Manual) Eosinophils % (Manual) Basophils % (Manual) Metamyelocytes % Myelocytes % Promyelocytes % Blast Cells % Plasma Cell % (Manual) Other Cells % Nucleated RBC % Nucleated RBCs/100 WBC Differential Comment Diff Path Review Hypersegmented Neuts Atypical Lymphocytes Reactive Lymphocytes Smudge Cells Toxic Granulation Toxic Vacuolation Dohle Bodies Dell Rods Platelet Estimate Plt Morphology Comment RBC Morphology Polychromasia Hypochromasia Basophilic Stippling Anisocytosis Microcytosis Macrocytosis Spherocytes Sickle Cells Target Cells Tear Drop Cells Ovalocytes Stomatocytes [place] Bodies Atiya Cells Bite Cells Crenated Cell Acanthocytes (Spur) Rouleaux Schistocytes ESR Sodium Potassium Chloride Carbon Dioxide Anion Gap BUN Creatinine Estim Creat Clear Calc Est GFR (MDRD) Af Amer Est GFR (MDRD) Non-Af BUN/Creatinine Ratio Glucose Calcium Total Bilirubin AST ALT Alkaline Phosphatase Total Protein Albumin Globulin Albumin/Globulin Ratio Urine Color Urine Clarity Urine pH Ur Specific Gamerco Urine Protein Urine Glucose (UA) Urine Ketones Urine Occult Blood Urine Nitrite Urine Bilirubin Urine Urobilinogen Ur Leukocyte Esterase Urine RBC Urine WBC Ur Squamous Epith Cells Urine Bacteria Urine Mucus 12/05/23 12/05/23 12/05/23 09:45 09:45 09:45 WBC Corrected WBC RBC Hgb Hct MCV MCH 28.0 MCHC Cancelled 32.6 RDW Std Deviation Cancelled 42.8 RDW Coeff of Angel Cancelled Plt Count MPV Immature Gran % (Auto) Neut % (Auto) Lymph % (Auto) Gillespie % (Auto) Eos % (Auto) Baso % (Auto) Absolute Neuts (auto) Absolute Lymphs (auto) Total Counted Neutrophils % (Manual) Band Neutrophils % Lymphocytes % (Manual) Monocytes % (Manual) Eosinophils % (Manual) Basophils % (Manual) Metamyelocytes % Myelocytes % Promyelocytes % Blast Cells % Plasma Cell % (Manual) Other Cells % Nucleated RBC % Nucleated RBCs/100 WBC Differential Comment Diff Path Review Hypersegmented Neuts Atypical Lymphocytes Reactive Lymphocytes Smudge Cells Toxic Granulation Toxic Vacuolation Dohle Bodies Dell Rods Platelet Estimate Plt Morphology Comment RBC Morphology Polychromasia Hypochromasia Basophilic Stippling Anisocytosis Microcytosis Macrocytosis Spherocytes Sickle Cells Target Cells Tear Drop Cells Ovalocytes Stomatocytes [place] Bodies Atiya Cells Bite Cells Crenated Cell Acanthocytes (Spur) Rouleaux Schistocytes ESR Sodium Potassium Chloride Carbon Dioxide Anion Gap BUN Creatinine Estim Creat Clear Calc Est GFR (MDRD) Af Amer Est GFR (MDRD) Non-Af BUN/Creatinine Ratio Glucose Calcium Total Bilirubin AST ALT Alkaline Phosphatase Total Protein Albumin Globulin Albumin/Globulin Ratio Urine Color Urine Clarity Urine pH Ur Specific [place] Urine Protein Urine Glucose (UA) Urine Ketones Urine Occult Blood Urine Nitrite Urine Bilirubin Urine Urobilinogen Ur Leukocyte Esterase Urine RBC Urine WBC Ur Squamous Epith Cells Urine Bacteria Urine Mucus 12/05/23 12/05/23 12/05/23 09:45 09:45 09:45 WBC Corrected WBC RBC Hgb Hct MCV MCH MCHC RDW Std Deviation RDW Coeff of Angel 13.8 Plt Count Cancelled 308 MPV Cancelled 9.3 Immature Gran % (Auto) Cancelled Neut % (Auto) Lymph % (Auto) Gillespie % (Auto) Eos % (Auto) Baso % (Auto) Absolute Neuts (auto) Absolute Lymphs (auto) Total Counted Neutrophils % (Manual) Band Neutrophils % Lymphocytes % (Manual) Monocytes % (Manual) Eosinophils % (Manual) Basophils % (Manual) Metamyelocytes % Myelocytes % Promyelocytes % Blast Cells % Plasma Cell % (Manual) Other Cells % Nucleated RBC % Nucleated RBCs/100 WBC Differential Comment Diff Path Review Hypersegmented Neuts Atypical Lymphocytes Reactive Lymphocytes Smudge Cells Toxic Granulation Toxic Vacuolation Dohle Bodies Dell Rods Platelet Estimate Plt Morphology Comment RBC Morphology Polychromasia Hypochromasia Basophilic Stippling Anisocytosis Microcytosis Macrocytosis Spherocytes Sickle Cells Target Cells Tear Drop Cells Ovalocytes Stomatocytes [place] Bodies [place] Cells Bite Cells Crenated Cell Acanthocytes (Spur) Rouleaux Schistocytes ESR Sodium Potassium Chloride Carbon Dioxide Anion Gap BUN Creatinine Estim Creat Clear Calc Est GFR (MDRD) Af Amer Est GFR (MDRD) Non-Af BUN/Creatinine Ratio Glucose Calcium Total Bilirubin AST ALT Alkaline Phosphatase Total Protein Albumin Globulin Albumin/Globulin Ratio Urine Color Urine Clarity Urine pH Ur Specific [place] Urine Protein Urine Glucose (UA) Urine Ketones Urine Occult Blood Urine Nitrite Urine Bilirubin Urine Urobilinogen Ur Leukocyte Esterase Urine RBC Urine WBC Ur Squamous Epith Cells Urine Bacteria Urine Mucus 12/05/23 12/05/23 12/05/23 09:45 09:45 09:45 WBC Corrected WBC RBC Hgb Hct MCV MCH MCHC RDW Std Deviation RDW Coeff of Angel Plt Count MPV Immature Gran % (Auto) 0.600 Neut % (Auto) Cancelled 69.1 Lymph % (Auto) Cancelled 19.0 Gillespie % (Auto) Cancelled Eos % (Auto) Baso % (Auto) Absolute Neuts (auto) Absolute Lymphs (auto) Total Counted Neutrophils % (Manual) Band Neutrophils % Lymphocytes % (Manual) Monocytes % (Manual) Eosinophils % (Manual) Basophils % (Manual) Metamyelocytes % Myelocytes % Promyelocytes % Blast Cells % Plasma Cell % (Manual) Other Cells % Nucleated RBC % Nucleated RBCs/100 WBC Differential Comment Diff Path Review Hypersegmented Neuts Atypical Lymphocytes Reactive Lymphocytes Smudge Cells Toxic Granulation Toxic Vacuolation Dohle Bodies Dell Rods Platelet Estimate Plt Morphology Comment RBC Morphology Polychromasia Hypochromasia Basophilic Stippling Anisocytosis Microcytosis Macrocytosis Spherocytes Sickle Cells Target Cells Tear Drop Cells Ovalocytes Stomatocytes [place] Bodies Atiya Cells Bite Cells Crenated Cell Acanthocytes (Spur) Rouleaux Schistocytes ESR Sodium Potassium Chloride Carbon Dioxide Anion Gap BUN Creatinine Estim Creat Clear Calc Est GFR (MDRD) Af Amer Est GFR (MDRD) Non-Af BUN/Creatinine Ratio Glucose Calcium Total Bilirubin AST ALT Alkaline Phosphatase Total Protein Albumin Globulin Albumin/Globulin Ratio Urine Color Urine Clarity Urine pH Ur Specific [place] Urine Protein Urine Glucose (UA) Urine Ketones Urine Occult Blood Urine Nitrite Urine Bilirubin Urine Urobilinogen Ur Leukocyte Esterase Urine RBC Urine WBC Ur Squamous Epith Cells Urine Bacteria Urine Mucus 12/05/23 12/05/23 12/05/23 09:45 09:45 09:45 WBC Corrected WBC RBC Hgb Hct MCV MCH MCHC RDW Std Deviation RDW Coeff of Angel Plt Count MPV Immature Gran % (Auto) Neut % (Auto) Lymph % (Auto) Gillespie % (Auto) 10.6 H Eos % (Auto) Cancelled 0.0 Baso % (Auto) Cancelled 0.7 Absolute Neuts (auto) Cancelled Absolute Lymphs (auto) Total Counted Neutrophils % (Manual) Band Neutrophils % Lymphocytes % (Manual) Monocytes % (Manual) Eosinophils % (Manual) Basophils % (Manual) Metamyelocytes % Myelocytes % Promyelocytes % Blast Cells % Plasma Cell % (Manual) Other Cells % Nucleated RBC % Nucleated RBCs/100 WBC Differential Comment Diff Path Review Hypersegmented Neuts Atypical Lymphocytes Reactive Lymphocytes Smudge Cells Toxic Granulation Toxic Vacuolation Dohle Bodies Dell Rods Platelet Estimate Plt Morphology Comment RBC Morphology Polychromasia Hypochromasia Basophilic Stippling Anisocytosis Microcytosis Macrocytosis Spherocytes Sickle Cells Target Cells Tear Drop Cells Ovalocytes Stomatocytes [place] Bodies Atiya Cells Bite Cells Crenated Cell Acanthocytes (Spur) Rouleaux Schistocytes ESR Sodium Potassium Chloride Carbon Dioxide Anion Gap BUN Creatinine Estim Creat Clear Calc Est GFR (MDRD) Af Amer Est GFR (MDRD) Non-Af BUN/Creatinine Ratio Glucose Calcium Total Bilirubin AST ALT Alkaline Phosphatase Total Protein Albumin Globulin Albumin/Globulin Ratio Urine Color Urine Clarity Urine pH Ur Specific [place] Urine Protein Urine Glucose (UA) Urine Ketones Urine Occult Blood Urine Nitrite Urine Bilirubin Urine Urobilinogen Ur Leukocyte Esterase Urine RBC Urine WBC Ur Squamous Epith Cells Urine Bacteria Urine Mucus 12/05/23 12/05/23 12/05/23 09:45 09:45 09:45 WBC Corrected WBC RBC Hgb Hct MCV MCH MCHC RDW Std Deviation RDW Coeff of Angel Plt Count MPV Immature Gran % (Auto) Neut % (Auto) Lymph % (Auto) Gillespie % (Auto) Eos % (Auto) Baso % (Auto) Absolute Neuts (auto) 6.2 Absolute Lymphs (auto) Cancelled 1.70 Total Counted Cancelled Neutrophils % (Manual) Cancelled Band Neutrophils % Cancelled Lymphocytes % (Manual) Cancelled Monocytes % (Manual) Cancelled Eosinophils % (Manual) Cancelled Basophils % (Manual) Cancelled Metamyelocytes % Cancelled Myelocytes % Cancelled Promyelocytes % Cancelled Blast Cells % Cancelled Plasma Cell % (Manual) Cancelled Other Cells % Cancelled Nucleated RBC % Cancelled 0 Nucleated RBCs/100 WBC Cancelled Differential Comment Cancelled Diff Path Review Cancelled Hypersegmented Neuts Cancelled Atypical Lymphocytes Cancelled Reactive Lymphocytes Cancelled Smudge Cells Cancelled Toxic Granulation Cancelled Toxic Vacuolation Cancelled Dohle Bodies Cancelled Dell Rods Cancelled Platelet Estimate Cancelled Plt Morphology Comment Cancelled RBC Morphology Cancelled Polychromasia Hypochromasia Basophilic Stippling Anisocytosis Microcytosis Macrocytosis Spherocytes Sickle Cells Target Cells Tear Drop Cells Ovalocytes Stomatocytes [place] Bodies Atiya Cells Bite Cells Crenated Cell Acanthocytes (Spur) Rouleaux Schistocytes ESR Sodium Potassium Chloride Carbon Dioxide Anion Gap BUN Creatinine Estim Creat Clear Calc Est GFR (MDRD) Af Amer Est GFR (MDRD) Non-Af BUN/Creatinine Ratio Glucose Calcium Total Bilirubin AST ALT Alkaline Phosphatase Total Protein Albumin Globulin Albumin/Globulin Ratio Urine Color Urine Clarity Urine pH Ur Specific [place] Urine Protein Urine Glucose (UA) Urine Ketones Urine Occult Blood Urine Nitrite Urine Bilirubin Urine Urobilinogen Ur Leukocyte Esterase Urine RBC Urine WBC Ur Squamous Epith Cells Urine Bacteria Urine Mucus 12/05/23 12/05/23 12/05/23 09:45 09:45 09:45 WBC Corrected WBC RBC Hgb Hct MCV MCH MCHC RDW Std Deviation RDW Coeff of Angel Plt Count MPV Immature Gran % (Auto) Neut % (Auto) Lymph % (Auto) Gillespie % (Auto) Eos % (Auto) Baso % (Auto) Absolute Neuts (auto) Absolute Lymphs (auto) Total Counted Neutrophils % (Manual) Band Neutrophils % Lymphocytes % (Manual) Monocytes % (Manual) Eosinophils % (Manual) Basophils % (Manual) Metamyelocytes % Myelocytes % Promyelocytes % Blast Cells % Plasma Cell % (Manual) Other Cells % Nucleated RBC % Nucleated RBCs/100 WBC Differential Comment Diff Path Review Hypersegmented Neuts Atypical Lymphocytes Reactive Lymphocytes Smudge Cells Toxic Granulation Toxic Vacuolation Dohle Bodies Dell Rods Platelet Estimate Plt Morphology Comment RBC Morphology Cancelled Polychromasia Cancelled Hypochromasia Cancelled Basophilic Stippling Cancelled Anisocytosis Cancelled Microcytosis Cancelled Macrocytosis Cancelled Spherocytes Cancelled Sickle Cells Cancelled Target Cells Cancelled Tear Drop Cells Cancelled Ovalocytes Cancelled Stomatocytes Cancelled [place] Bodies Cancelled Atiya Cells Cancelled Bite Cells Cancelled Crenated Cell Cancelled Acanthocytes (Spur) Cancelled Rouleaux Cancelled Schistocytes Cancelled ESR 12 Sodium 135 L Cancelled Potassium 4.1 Cancelled Chloride 104 Carbon Dioxide Anion Gap BUN Creatinine Estim Creat Clear Calc Est GFR (MDRD) Af Amer Est GFR (MDRD) Non-Af BUN/Creatinine Ratio Glucose Calcium Total Bilirubin AST ALT Alkaline Phosphatase Total Protein Albumin Globulin Albumin/Globulin Ratio Urine Color Urine Clarity Urine pH Ur Specific [place] Urine Protein Urine Glucose (UA) Urine Ketones Urine Occult Blood Urine Nitrite Urine Bilirubin Urine Urobilinogen Ur Leukocyte Esterase Urine RBC Urine WBC Ur Squamous Epith Cells Urine Bacteria Urine Mucus 12/05/23 12/05/23 12/05/23 09:45 09:45 09:45 WBC Corrected WBC RBC Hgb Hct MCV MCH MCHC RDW Std Deviation RDW Coeff of Angel Plt Count MPV Immature Gran % (Auto) Neut % (Auto) Lymph % (Auto) Gillespie % (Auto) Eos % (Auto) Baso % (Auto) Absolute Neuts (auto) Absolute Lymphs (auto) Total Counted Neutrophils % (Manual) Band Neutrophils % Lymphocytes % (Manual) Monocytes % (Manual) Eosinophils % (Manual) Basophils % (Manual) Metamyelocytes % Myelocytes % Promyelocytes % Blast Cells % Plasma Cell % (Manual) Other Cells % Nucleated RBC % Nucleated RBCs/100 WBC Differential Comment Diff Path Review Hypersegmented Neuts Atypical Lymphocytes Reactive Lymphocytes Smudge Cells Toxic Granulation Toxic Vacuolation Dohle Bodies Dell Rods Platelet Estimate Plt Morphology Comment RBC Morphology Polychromasia Hypochromasia Basophilic Stippling Anisocytosis Microcytosis Macrocytosis Spherocytes Sickle Cells Target Cells Tear Drop Cells Ovalocytes Stomatocytes [place] Bodies Atiya Cells Bite Cells Crenated Cell Acanthocytes (Spur) Rouleaux Schistocytes ESR Sodium Potassium Chloride Cancelled Carbon Dioxide 27.0 Cancelled Anion Gap 4 L Cancelled BUN 13 Creatinine Estim Creat Clear Calc Est GFR (MDRD) Af Amer Est GFR (MDRD) Non-Af BUN/Creatinine Ratio Glucose Calcium Total Bilirubin AST ALT Alkaline Phosphatase Total Protein Albumin Globulin Albumin/Globulin Ratio Urine Color Urine Clarity Urine pH Ur Specific [place] Urine Protein Urine Glucose (UA) Urine Ketones Urine Occult Blood Urine Nitrite Urine Bilirubin Urine Urobilinogen Ur Leukocyte Esterase Urine RBC Urine WBC Ur Squamous Epith Cells Urine Bacteria Urine Mucus 12/05/23 12/05/23 12/05/23 09:45 09:45 09:45 WBC Corrected WBC RBC Hgb Hct MCV MCH MCHC RDW Std Deviation RDW Coeff of Angel Plt Count MPV Immature Gran % (Auto) Neut % (Auto) Lymph % (Auto) Gillespie % (Auto) Eos % (Auto) Baso % (Auto) Absolute Neuts (auto) Absolute Lymphs (auto) Total Counted Neutrophils % (Manual) Band Neutrophils % Lymphocytes % (Manual) Monocytes % (Manual) Eosinophils % (Manual) Basophils % (Manual) Metamyelocytes % Myelocytes % Promyelocytes % Blast Cells % Plasma Cell % (Manual) Other Cells % Nucleated RBC % Nucleated RBCs/100 WBC Differential Comment Diff Path Review Hypersegmented Neuts Atypical Lymphocytes Reactive Lymphocytes Smudge Cells Toxic Granulation Toxic Vacuolation Dohle Bodies Dell Rods Platelet Estimate Plt Morphology Comment RBC Morphology Polychromasia Hypochromasia Basophilic Stippling Anisocytosis Microcytosis Macrocytosis Spherocytes Sickle Cells Target Cells Tear Drop Cells Ovalocytes Stomatocytes [place] Bodies [place] Cells Bite Cells Crenated Cell Acanthocytes (Spur) Rouleaux Schistocytes ESR Sodium Potassium Chloride Carbon Dioxide Anion Gap BUN Cancelled Creatinine 1.05 Cancelled Estim Creat Clear Calc 115.44 Cancelled Est GFR (MDRD) Af Amer 103 Est GFR (MDRD) Non-Af BUN/Creatinine Ratio Glucose Calcium Total Bilirubin AST ALT Alkaline Phosphatase Total Protein Albumin Globulin Albumin/Globulin Ratio Urine Color Urine Clarity Urine pH Ur Specific [place] Urine Protein Urine Glucose (UA) Urine Ketones Urine Occult Blood Urine Nitrite Urine Bilirubin Urine Urobilinogen Ur Leukocyte Esterase Urine RBC Urine WBC Ur Squamous Epith Cells Urine Bacteria Urine Mucus 12/05/23 12/05/23 12/05/23 09:45 09:45 09:45 WBC Corrected WBC RBC Hgb Hct MCV MCH MCHC RDW Std Deviation RDW Coeff of Angel Plt Count MPV Immature Gran % (Auto) Neut % (Auto) Lymph % (Auto) Gillespie % (Auto) Eos % (Auto) Baso % (Auto) Absolute Neuts (auto) Absolute Lymphs (auto) Total Counted Neutrophils % (Manual) Band Neutrophils % Lymphocytes % (Manual) Monocytes % (Manual) Eosinophils % (Manual) Basophils % (Manual) Metamyelocytes % Myelocytes % Promyelocytes % Blast Cells % Plasma Cell % (Manual) Other Cells % Nucleated RBC % Nucleated RBCs/100 WBC Differential Comment Diff Path Review Hypersegmented Neuts Atypical Lymphocytes Reactive Lymphocytes Smudge Cells Toxic Granulation Toxic Vacuolation Dohle Bodies Dell Rods Platelet Estimate Plt Morphology Comment RBC Morphology Polychromasia Hypochromasia Basophilic Stippling Anisocytosis Microcytosis Macrocytosis Spherocytes Sickle Cells Target Cells Tear Drop Cells Ovalocytes Stomatocytes [place] Bodies Atiya Cells Bite Cells Crenated Cell Acanthocytes (Spur) Rouleaux Schistocytes ESR Sodium Potassium Chloride Carbon Dioxide Anion Gap BUN Creatinine Estim Creat Clear Calc Est GFR (MDRD) Af Amer Cancelled Est GFR (MDRD) Non-Af 85 Cancelled BUN/Creatinine Ratio 12.4 Cancelled Glucose 103 Calcium Total Bilirubin AST ALT Alkaline Phosphatase Total Protein Albumin Globulin Albumin/Globulin Ratio Urine Color Urine Clarity Urine pH Ur Specific [place] Urine Protein Urine Glucose (UA) Urine Ketones Urine Occult Blood Urine Nitrite Urine Bilirubin Urine Urobilinogen Ur Leukocyte Esterase Urine RBC Urine WBC Ur Squamous Epith Cells Urine Bacteria Urine Mucus 12/05/23 12/05/23 12/05/23 09:45 09:45 09:45 WBC Corrected WBC RBC Hgb Hct MCV MCH MCHC RDW Std Deviation RDW Coeff of Angel Plt Count MPV Immature Gran % (Auto) Neut % (Auto) Lymph % (Auto) Gillespie % (Auto) Eos % (Auto) Baso % (Auto) Absolute Neuts (auto) Absolute Lymphs (auto) Total Counted Neutrophils % (Manual) Band Neutrophils % Lymphocytes % (Manual) Monocytes % (Manual) Eosinophils % (Manual) Basophils % (Manual) Metamyelocytes % Myelocytes % Promyelocytes % Blast Cells % Plasma Cell % (Manual) Other Cells % Nucleated RBC % Nucleated RBCs/100 WBC Differential Comment Diff Path Review Hypersegmented Neuts Atypical Lymphocytes Reactive Lymphocytes Smudge Cells Toxic Granulation Toxic Vacuolation Dohle Bodies Dell Rods Platelet Estimate Plt Morphology Comment RBC Morphology Polychromasia Hypochromasia Basophilic Stippling Anisocytosis Microcytosis Macrocytosis Spherocytes Sickle Cells Target Cells Tear Drop Cells Ovalocytes Stomatocytes [place] Bodies Atiya Cells Bite Cells Crenated Cell Acanthocytes (Spur) Rouleaux Schistocytes ESR Sodium Potassium Chloride Carbon Dioxide Anion Gap BUN Creatinine Estim Creat Clear Calc Est GFR (MDRD) Af Amer Est GFR (MDRD) Non-Af BUN/Creatinine Ratio Glucose Cancelled Calcium 8.9 Cancelled Total Bilirubin 1.00 Cancelled AST 12 L ALT Alkaline Phosphatase Total Protein Albumin Globulin Albumin/Globulin Ratio Urine Color Urine Clarity Urine pH Ur Specific [place] Urine Protein Urine Glucose (UA) Urine Ketones Urine Occult Blood Urine Nitrite Urine Bilirubin Urine Urobilinogen Ur Leukocyte Esterase Urine RBC Urine WBC Ur Squamous Epith Cells Urine Bacteria Urine Mucus 12/05/23 12/05/23 12/05/23 09:45 09:45 09:45 WBC Corrected WBC RBC Hgb Hct MCV MCH MCHC RDW Std Deviation RDW Coeff of Angel Plt Count MPV Immature Gran % (Auto) Neut % (Auto) Lymph % (Auto) Gillespie % (Auto) Eos % (Auto) Baso % (Auto) Absolute Neuts (auto) Absolute Lymphs (auto) Total Counted Neutrophils % (Manual) Band Neutrophils % Lymphocytes % (Manual) Monocytes % (Manual) Eosinophils % (Manual) Basophils % (Manual) Metamyelocytes % Myelocytes % Promyelocytes % Blast Cells % Plasma Cell % (Manual) Other Cells % Nucleated RBC % Nucleated RBCs/100 WBC Differential Comment Diff Path Review Hypersegmented Neuts Atypical Lymphocytes Reactive Lymphocytes Smudge Cells Toxic Granulation Toxic Vacuolation Dohle Bodies Dell Rods Platelet Estimate Plt Morphology Comment RBC Morphology Polychromasia Hypochromasia Basophilic Stippling Anisocytosis Microcytosis Macrocytosis Spherocytes Sickle Cells Target Cells Tear Drop Cells Ovalocytes Stomatocytes [place] Bodies Atiya Cells Bite Cells Crenated Cell Acanthocytes (Spur) Rouleaux Schistocytes ESR Sodium Potassium Chloride Carbon Dioxide Anion Gap BUN Creatinine Estim Creat Clear Calc Est GFR (MDRD) Af Amer Est GFR (MDRD) Non-Af BUN/Creatinine Ratio Glucose Calcium Total Bilirubin AST Cancelled ALT 15 L Cancelled Alkaline Phosphatase 80 Cancelled Total Protein 7.1 Albumin Globulin Albumin/Globulin Ratio Urine Color Urine Clarity Urine pH Ur Specific [place] Urine Protein Urine Glucose (UA) Urine Ketones Urine Occult Blood Urine Nitrite Urine Bilirubin Urine Urobilinogen Ur Leukocyte Esterase Urine RBC Urine WBC Ur Squamous Epith Cells Urine Bacteria Urine Mucus 12/05/23 12/05/23 12/05/23 09:45 09:45 09:45 WBC Corrected WBC RBC Hgb Hct MCV MCH MCHC RDW Std Deviation RDW Coeff of Angel Plt Count MPV Immature Gran % (Auto) Neut % (Auto) Lymph % (Auto) Gillespie % (Auto) Eos % (Auto) Baso % (Auto) Absolute Neuts (auto) Absolute Lymphs (auto) Total Counted Neutrophils % (Manual) Band Neutrophils % Lymphocytes % (Manual) Monocytes % (Manual) Eosinophils % (Manual) Basophils % (Manual) Metamyelocytes % Myelocytes % Promyelocytes % Blast Cells % Plasma Cell % (Manual) Other Cells % Nucleated RBC % Nucleated RBCs/100 WBC Differential Comment Diff Path Review Hypersegmented Neuts Atypical Lymphocytes Reactive Lymphocytes Smudge Cells Toxic Granulation Toxic Vacuolation Dohle Bodies Dell Rods Platelet Estimate Plt Morphology Comment RBC Morphology Polychromasia Hypochromasia Basophilic Stippling Anisocytosis Microcytosis Macrocytosis Spherocytes Sickle Cells Target Cells Tear Drop Cells Ovalocytes Stomatocytes [place] Bodies Atiya Cells Bite Cells Crenated Cell Acanthocytes (Spur) Rouleaux Schistocytes ESR Sodium Potassium Chloride Carbon Dioxide Anion Gap BUN Creatinine Estim Creat Clear Calc Est GFR (MDRD) Af Amer Est GFR (MDRD) Non-Af BUN/Creatinine Ratio Glucose Calcium Total Bilirubin AST ALT Alkaline Phosphatase Total Protein Cancelled Albumin 3.1 L Cancelled Globulin 4.0 Cancelled Albumin/Globulin Ratio 0.8 L Urine Color Urine Clarity Urine pH Ur Specific [place] Urine Protein Urine Glucose (UA) Urine Ketones Urine Occult Blood Urine Nitrite Urine Bilirubin Urine Urobilinogen Ur Leukocyte Esterase Urine RBC Urine WBC Ur Squamous Epith Cells Urine Bacteria Urine Mucus 12/05/23 12/05/23 09:45 10:00 WBC Corrected WBC RBC Hgb Hct MCV MCH MCHC RDW Std Deviation RDW Coeff of Angel Plt Count MPV Immature Gran % (Auto) Neut % (Auto) Lymph % (Auto) Gillespie % (Auto) Eos % (Auto) Baso % (Auto) Absolute Neuts (auto) Absolute Lymphs (auto) Total Counted Neutrophils % (Manual) Band Neutrophils % Lymphocytes % (Manual) Monocytes % (Manual) Eosinophils % (Manual) Basophils % (Manual) Metamyelocytes % Myelocytes % Promyelocytes % Blast Cells % Plasma Cell % (Manual) Other Cells % Nucleated RBC % Nucleated RBCs/100 WBC Differential Comment Diff Path Review Hypersegmented Neuts Atypical Lymphocytes Reactive Lymphocytes Smudge Cells Toxic Granulation Toxic Vacuolation Dohle Bodies Dell Rods Platelet Estimate Plt Morphology Comment RBC Morphology Polychromasia Hypochromasia Basophilic Stippling Anisocytosis Microcytosis Macrocytosis Spherocytes Sickle Cells Target Cells Tear Drop Cells Ovalocytes Stomatocytes [place] Bodies Atiya Cells Bite Cells Crenated Cell Acanthocytes (Spur) Rouleaux Schistocytes ESR Sodium Potassium Chloride Carbon Dioxide Anion Gap BUN Creatinine Estim Creat Clear Calc Est GFR (MDRD) Af Amer Est GFR (MDRD) Non-Af BUN/Creatinine Ratio Glucose Calcium Total Bilirubin AST ALT Alkaline Phosphatase Total Protein Albumin Globulin Albumin/Globulin Ratio Cancelled Urine Color [place] Urine Clarity Clear Urine pH 5.0 Ur Specific [place] 1.025 Urine Protein 30 H Urine Glucose (UA) Normal Urine Ketones 15 H Urine Occult Blood 10 H Urine Nitrite Positive H Urine Bilirubin 1 H Urine Urobilinogen 4 H Ur Leukocyte Esterase 25 H Urine RBC 0 SEEN Urine WBC 0-5 SEEN Ur Squamous Epith Cells 0 SEEN Urine Bacteria 1+ Urine Mucus 0 SEEN Radiography Diagnostic Testing: Clinical Impression(s) from Imaging Studies Abdomen/Pelvis CT 12/05/23 09:42 IMPRESSION: 1. Trace of free fluid in the pelvis. 2. No focal acute inflammatory process. 3. The appendix is identified and difficult to evaluate. 4. Borderline hepatosplenomegaly. Electronically Signed: Benton Macias MD at 10:59 EDT , Abdomen CT 12/05/23 12:28 IMPRESSION: 1. Minimal fluid near the lower edge of the liver and right lower quadrant. 2. The appendix could not be definitely identified. 3. Otherwise no focal acute inflammatory process. Electronically Signed: Benton Macias MD at 14:19 EDT , Discharge Plan Triage Chief Complaint: Abd Pain ED Provider: Flor Carbajal Dx/Rx/DC Orders Clinical Impression: Abdominal pain Prescriptions: No Action NK [facility] Referrals: Care Physician,No Primary [Non-Staff] - What to do if you have Problems For any increased pain, shortness of breath, bleeding, nausea or vomiting, chestpain, or any unexpected problems, contact your Primary Care Provider. Call [facility] ([phone]) or report to the closest Emergency Room. Call 911 if necessary. 12/05/23 1508 <Electronically signed by Flor Carbajal DO> Cosigner Signature (if applicable): CC: [facility] ~ Signed ADDENDUM by Dr. Flor Carbajal DO on 12/05/23 at 1512 Patient was seen by general surgeon on-call Dr. Alcaraz who does not feel patient has appendicitis. On his exam patient was noted to have more right upper quadrant pain and Dr. Alcaraz recommended that we obtain an ultrasound of the gallbladder to evaluate further. Care of patient will be turned over to evening physician awaiting ultrasound result and final discussion with general surgeon and final disposition. 12/05/23 1512<Electronically signed by [facility] JONES> Cosigner Signature (if applicable): cc: [facility] ~* Signed ADDENDUM by Dr. Naima Packer MD on 12/05/23 at 1920 Patient signed out to me pending for quadrant ultrasound. Ultrasound reveals gallbladder wall mildly thickened at 3.5 mm. There is a 4 mm polyp noted in thegallbladder but no stones appreciated. Common bile duct is nondilated. Patientdid have a positive Elliott sign and overall impression is suspected a calculus cholecystitis. On repeat exam patient continues to have focal tenderness in theright upper quadrant. I have spoken with Dr. Alcaraz who has presented the emergency room to evaluate the patient. Patient be admitted to his service. 12/05/23 1920<Electronically signed by Naima Packer MD> Cosigner Signature (if applicable): cc: [facility] ~* Signed [facility] Work Phone: 1(443) 279-456603-08-2024 Discharge summary Author Huang Carrizales [facility] September 30, 2023 8:56pm Note Date/Time September 30, 2023 8:21 pm [facility] Medical Records Department [address] [place] [address] Emergency Department Summary 09/30/23 MR#: [id number] Acct: [id number] Name: KATALINA HAWLEY Rep #:[id number] : 1985 37 From: Huang Henson PCP: Care Physician,No Primary Status :REG ER Location: ED HPI History of Present Illness Chief Complaint: Lower Extremity Injury Informant: patient Narrative Narrative: Left great toe injury while moving a couch with his brother. States toenail caught on the wooden edge, nail came up pulled up bleeding. He trim the nail down. Pain to the toe. No medications taken. No history gastric ulcers or kidney problems. PFSH PFSH Medical History no medical history Home Medications Ibuprofen [Motrin] 800 mg PO TID PRN PRN Pain #15 tabs 03/15/15 [Rx Last Taken Unknown] tramadol 50 mg tablet 50 mg PO Q6H PRN PRN Pain #10 tabs 03/15/15 [Rx Last Taken Unknown] clindamycin HCl 150 mg capsule 300 mg (2 x 150 mg) PO 4X/DAY ##80 04/12/15 [Rx Last Taken Unknown] tramadol 50 mg tablet 50 mg PO Q4H PRN PRN Pain #12 tabs 04/12/15 [Rx Last Taken Unknown] clindamycin HCl 150 mg capsule 300 mg (2 x 150 mg) PO 4X/DAY #56 CAPSULES 06/30/23 [Rx Last Taken Unknown] hydrocodone-acetaminophen 5-325mg 5mg-325mg 1 tab PO Q6H PRN PRN Pain 3 days #10TABLETS 06/30/23 [Rx Last Taken Unknown] ibuprofen 600 mg tablet 600 mg PO Q6H PRN PRN pain #20 TABLETS 06/30/23 [Rx Last Taken Unknown] Allergy/AdvReac Type Severity Reaction Status Date / Time bee venom protein (honey bee) Allergy Severe Anaphylaxis Verified 09/30/23 19:33 guaifenesin [From Robitussin] Allergy THROAT Verified 09/30/23 19:33 SWELLING Penicillins Allergy THROAT Verified 09/30/23 19:33 SWELLING Social History household members: family Smoking Status: Current every day smoker tobacco type: cigarettes alcohol intake: current ROS ROS ED Constitutional Constitutional ED: Denies chills, fever(s) or sweats Eyes Eyes: Denies change in vision ENT ENT ED: Denies dysphagia or sore throat Cardiovascular Cardiovascular: Denies chest pain, leg edema, palpitations or racing heartbeat Respiratory/Chest Respiratory/Chest: Denies cough, dyspnea or dyspnea on exertion Gastrointestinal Gastrointestinal: Denies abdominal pain, diarrhea, nausea or vomiting Genitourinary Genitourinary ED: Denies dysuria, hematuria or urinary frequency Musculoskeletal Musculoskeletal: Reports extremity pain and other Details: Left great toe pain. ; Denies back pain or neck pain Integumentary Denies rash or wounds Neurologic Neurologic: Denies headache(s), paresthesias or weakness EXAM Physical Exam Const Vital Signs: 09/30/23 19:33 Temperature 97.2 F L Temperature Source Temporal Pulse Rate 82 Respiratory Rate 14 Blood Pressure 135/66 H Blood Pressure Mean 89 Pulse Ox 97 Oxygen Delivery Method Room Air Positive well nourished and well developed General Appearance ED: well developed and NAD HEENT Reports moist mucous membranes normocephalic and atraumatic Eyes PERRL, EOMs intact bilaterally and conjunctivae normal General Eye ED: Yes normal appearance of both eyes Neck no lymphadenopathy and supple General: Negative for tenderness Chest Wall Chest: Negative for tenderness Resp normal respiratory effort and normal air movement Effort and Inspection: symmetric chest movement; Negative for respiratory distress Cardio regular rate, regular rhythm and no murmurs Peripheral Pulses: pulses 2+ throughout GI normal to inspection, nondistended, normoactive bowel sounds and non-tender Palpation: Negative for guarding or rebound tenderness present Back/Spine no CVA tenderness and no thoracic nor lumbar tenderness Extremity Extremity Narrative: Left lower extremity: Foot with left great toe: Bandage removed, trim toenail there is no current avulsion there is tender palpation proximal phalanx. No open lacerations. No active bleeding. No contusion of nailbed. General Extremety ED: Yes tenderness; Negative for edema General Extremity: Negative for edema Neuro oriented x3 and no sensory deficits noted Sensorium / Orientation: awake and alert Skin no rashes or lesions noted and no wounds MDM MDM MDM Narrative Medical decision making narrative: Interventions / MDM: Differential diagnosis: Toenail avulsion Diagnosis considered but do not suspect: No subungual hematoma. Fracture however x-ray negative no fracture noted. My EKG interpretation: N/A Imaging independently reviewed and interpreted by myself: Left foot 3 views: External documents reviewed: N/A Test considered but not ordered:N/A ED course: Ice placed, ibuprofen. X-ray left foot. X-ray negative. Band-Aids used to help hold down the nail, no current avulsion. Use ibuprofen as needed. Outpatient follow-up given podiatry as needed. All questions were answered. Re-evaluation: stable Disposition discussed with patient/family/significant other: Patient and family Case discussed with consulting clinician: N/A This note was generated with trivago dictation software. It may contain incorrectwords, spelling, and punctuation that were not noted in checking the note beforesigning. Discharge Plan Triage Chief Complaint: Lower Extremity Injury ED Provider: Huang Carrizales Dx/Rx/DC Orders Clinical Impression: Avulsion of toenail of left foot Instructions: ED Detached Fingernail or Toenail Prescriptions: No Action tramadol 50 MG tablet 50 mg PO Q6H PRN PRN (Reason: Pain) Qty: 10 0RF Ibuprofen [Motrin] 800 MG tablet 800 mg PO TID PRN PRN (Reason: Pain) Qty: 15 0RF clindamycin HCl 150 MG capsule 300 mg PO 4X/DAY Qty: 80 0RF tramadol 50 MG tablet 50 mg PO Q4H PRN PRN (Reason: Pain) Qty: 12 0RF hydrocodone-acetaminophen [hydrocodone-acetaminophen] 5-325 mg tablet 1 tab PO Q6H PRN PRN (Reason: Pain) 3 Days Qty: 10 0RF clindamycin HCl 150 mg capsule 300 mg PO 4X/DAY Qty: 56 0RF ibuprofen 600 mg tablet 600 mg PO Q6H PRN PRN (Reason: pain) Qty: 20 0RF Primary Care Provider: Care Physician,No Primary Referrals: Patillas,Roger, DPM [Med Staff - Active Staff] - 1-2 Weeks Care Physician,No Primary [Primary Care Provider] - Activity Restrictions/Additional Instructions: X-ray of foot negative. Continue to use Band-Aids to hold toenail down. Ibuprofen 600 mg every 6 hours as needed. Follow-up with foot doctor as needed. Disposition Disposition: Home, Self Care What to do if you have Problems For any increased pain, shortness of breath, bleeding, nausea or vomiting, chestpain, or any unexpected problems, contact your Primary Care Provider. Call [facility] ([phone]) or report to the closest Emergency Room. Call 911 if necessary. 09/30/232055 <Electronically signed by Huang Henson> Cosigner Signature (if applicable): CC: No Primary Care Physician ~ Signed [facility] Work Phone: 1([phone]) 876-843612-07-2023 Discharge summary Author Savage Tamayo [facility] June 30, 2023 10:23pm Note Date/Time June 30, 2023 1 0:21pm [facility] Medical Records Department [address] [place] [id number] Emergency Department Summary 06/30/23 MR#: [id number] Acct: [id number] Name: KATALINA HAWLEY Rep #:[id number] : 1985 37 From: Savage Tamayo MD PCP: Care Physician,No Primary Status :REG ER Location: ED HPI History of Present Illness Chief Complaint: Dental Detail of Chief Complaint: Dental pain involving multiple teeth Informant: patient Onset/Context/Timing Onset: Weeks Context: Sudden Onset Timing: Continuous and Waxes and wanes Quality: Pain Location: Above upper incisors teeth 7 through 10 Current Severity: Mild Maximum Severity: Severe Worsened by: Hot liquids Relieved by: - (Nothing) Associated Symptoms Assocated Symptom - Dental: cold sensitivity and hot sensitivity; Negative for fever, jaw swelling or face swelling Narrative Narrative: Patient is a 37-year-old male. He presents with dental pain. Started a week ago. He initially had sensitivity to cold liquids and ice cream. He now has sensitivity to hot liquids. He localizes the pain in the proximity of teeth 7 through 10. He denies fever, chills night sweats. [place] history medic fever, heart murmur mitral prolapse. He denies facial swelling or redness. He denies difficulty opening or closing his mouth. He apparently has a dental appointment. Prior similar symptoms: No Recent Illness/Hospitalization: No PFSH PFSH Home Medications Ibuprofen [Motrin] 800 mg PO TID PRN PRN Pain #15 tabs 03/15/15 [Rx Last Taken Unknown] tramadol 50 mg tablet 50 mg PO Q6H PRN PRN Pain #10 tabs 03/15/15 [Rx Last Taken Unknown] clindamycin HCl 150 mg capsule 300 mg (2 x 150 mg) PO 4X/DAY ##80 04/12/15 [Rx Last Taken Unknown] tramadol 50 mg tablet 50 mg PO Q4H PRN PRN Pain #12 tabs 04/12/15 [Rx Last Taken Unknown] clindamycin HCl 150 mg capsule 300 mg (2 x 150 mg) PO 4X/DAY #56 CAPSULES 06/30/23 [Rx Last Taken Unknown] hydrocodone-acetaminophen 5-325mg 5mg-325mg 1 tab PO Q6H PRN PRN Pain 3 days #10TABLETS 06/30/23 [Rx Last Taken Unknown] ibuprofen 600 mg tablet 600 mg PO Q6H PRN PRN pain #20 TABLETS 06/30/23 [Rx Last Taken Unknown] Allergy/AdvReac Type Severity Reaction Status Date / Time bee venom protein (honey bee) Allergy Severe Anaphylaxis Verified 06/30/23 21:46 guaifenesin [From Robitussin] Allergy THROAT Verified 06/30/23 21:46 SWELLING Penicillins Allergy THROAT Verified 06/30/23 21:46 SWELLING Surgical History no surgical history no surgical history Social History (Updated 06/30/23 @ 22:[address] Savage Tamayo MD) household members: family Smoking Status: Current every day smoker tobacco type: cigarettes alcohol intake: current ROS ROS ED Constitutional Constitutional ED: Denies chills, fever(s), subjective, sweats or weight loss Eyes Eyes: Denies blurry vision or change in vision ENT ENT ED: Reports other Details: Dental pain as described in the HPI narrative ; Denies ear pain, rhinorrhea or sore throat Cardiovascular Cardiovascular: Reports other Details: No history medic fever, heart murmur mitral valve prolapse. No history of SBE. Respiratory/Chest Respiratory/Chest: Denies cough, dyspnea or dyspnea on exertion Gastrointestinal Gastrointestinal: Denies nausea or vomiting Integumentary Denies abscess or rash Neurologic Neurologic: Denies headache(s) Hematologic/Lymphatic Hematologic/Lymphatic: Denies easy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
== END 2025-01-11 12:56 | disposition home or self-care (01) ==
PROVIDERS: Emergency Provider Emergency Medicine; Visit Provider Emergency Medicine
DX: M25.512 Pain in left shoulder (principal); F17.210 Nicotine dependence, cigarettes, uncomplicated; R20.0 Anesthesia of skin; R20.2 Paresthesia of skin; V29.91XA Electric (assisted) bicycle rider (driver) (passenger) injured in unspecified traffic accident, initial encounter
CPT/HCPCS: 73010; 73030; 99284

== ENCOUNTER 2025-01-17 10:41 | Emergency (ER) | payer MEDICAID, SELFPAY ==
[2025-01-17 10:42] VITALS: BP 111/69; PULSE 78; RESP 21; TEMP 36.4; O2SAT 96; BMI 25.9
--- NOTE | 2025-01-17 11:08 | RAD_ITS ---
PROCEDURE: CHEST PA AND LATERAL 01/17/2025 REASON FOR EXAM: Chest pain and left arm pain. TECHNIQUE: CHEST PA AND LATERAL COMPARISON: None FINDINGS: Hardware: EKG electrodes are seen. Heart: The heart is nonenlarged. Mediastinum: The mediastinal contour is unremarkable. Lungs: Hyperinflation. The lungs are clear. Bones: The bones are unremarkable. RAD/Chest PA and Lateral IMPRESSION: Hyperinflation. The lungs are clear. Reading Location: [id number]
--- NOTE | 2025-01-17 11:08 | RAD_ITS ---
PROCEDURE: CERV SPINE 2 OR 3 VIEWS 01/17/2025 REASON FOR EXAM: LEFT RADICULAR PAIN TECHNIQUE: CERV SPINE 2 OR 3 VIEWS COMPARISON: None FINDINGS: There is loss of the lordosis. Vertebral body height and alignment are maintained. There is loss of disc height at C6-7. Prevertebral soft tissues are unremarkable. RAD/Cerv Spine 2 or 3 Views IMPRESSION: There is loss of the lordosis, which can be secondary to position or spasm. There is loss of disc height at C6-7. Reading Location: [facility]
[2025-01-17 11:25] LABS: Absolute Lymphocyte Count 1.46 X10^3/uL (0.83-4.51); Absolute Neutrophil Count 3.6 X10^3/uL (2.0-7.7); Basophil# 0.01 X10^3/uL; Basophil% 0.2 % (0-1); Hematocrit 43.9 % (40-54); Hemoglobin 14.8 g/dL (13.0-16.5); Lymphocyte # 1.46 X10^3/ul (0.83-4.51); Lymphocyte % 26.3 % (19-41); Mean Corp Hgb Conc 33.7 g/dL (32-36); Mean Corpuscular Hgb 29.2 pg (27.0-32.0); Mean Corpuscular Volume 86.6 fL (80-94); Mean Platelet Vol. 10.6 fl (6.2-12.0); Monocyte# 0.52 X10^3/uL; Monocyte% 9.4 % (0-10); NRBC Flagged by Analyzer 0 % (0-5); Neutrophil # 3.55 X10^3/uL (2.7-7.7); Neutrophil % 63.9 % (47-70); Platelet Count 218 K/mm3 (150-450); RBC Distribution Width CV 14.7 % (11.6-14.6); RBC Distribution Width SD 46.7 fl (35.1-43.9); Red Blood Count 5.07 M/mm3 (4.6-6.2); White Blood Count 5.6 K/mm3 (4.4-11.0)
[2025-01-17] MEDS: Morphine 4 MG/ML Syringe IV (11:35)
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
[2025-01-17 12:17] LABS: Anion Gap 14 (5-15); BUN 21 mg/dL (4-19); BUN/Creat Ratio 19.4 RATIO (10-20); Calcium,Total 9.3 mg/dL (7.6-11.0); Carbon Dioxide 22.2 mmol/L (21.0-32.0); Chloride 102 mmol/L (98-108); Creatinine, Serum 1.09 mg/dL (0.70-1.20); EST Glomerular Filtration Rate 90 (>60); Estimated Creatinine Clearance 113.92 ml/min (50-250); Glucose 144 mg/dL (70-99); Potassium 3.4 mmol/L (3.3-5.1); Sodium Level 138 mmol/L (133-145); Troponin T High Sensitivity 8 ng/L (<=22)
[2025-01-17 13:00] VITALS: BP 104/65; PULSE 54; RESP 13; O2SAT 100
[2025-01-17 13:17] LABS: Troponin T High Sens 2 HR 7 ng/L (<=22)
[2025-01-17] MEDS: Gabapentin 300 MG Capsule PO (14:20)
[2025-01-17 14:47] VITALS: BP 104/65; PULSE 54; RESP 13; TEMP 36.7; O2SAT 100
== END 2025-01-17 14:49 | disposition home or self-care (01) ==
PROVIDERS: Emergency Provider Emergency Medicine; PCP Nurse Practitioner Family; Referring Provider Emergency Medicine; Visit Provider Emergency Medicine
DX: R07.89 Other chest pain (principal); F17.210 Nicotine dependence, cigarettes, uncomplicated; M54.12 Radiculopathy, cervical region; M25.512 Pain in left shoulder
CPT/HCPCS: 71046; 72040; 80048; 84484; 85025; 93005; 96374; 99285; A4216

== ENCOUNTER 2025-02-07 20:11 | Emergency (ER) | payer MEDICAID, SELFPAY ==
[2025-02-07 20:13] VITALS: BP 120/77; PULSE 87; RESP 18; TEMP 36.4; O2SAT 98; BMI 25.2
--- NOTE | 2025-02-07 20:27 | RAD_ITS ---
PROCEDURE: SHOULDER MIN 2 VIEWS 02/07/2025 REASON FOR EXAM: PAIN TECHNIQUE: Five views of the left shoulder COMPARISON: Left shoulder radiographs on 01/11/2025 FINDINGS: No fracture or dislocation. Os acromiale. Joint spaces are maintained. Bone mineral density is subjectively normal. Soft tissues are unremarkable. Visualized hemithorax is clear. RAD/Shoulder min 2 Views IMPRESSION: 1. No acute osseous abnormality of the left shoulder. 2. Incidental note of an os acromiale, which may be a source of pain in some p atients. Reading Location: [id number]
--- NOTE | 2025-02-07 20:27 | RAD_ITS ---
PROCEDURE: SHOULDER MIN 2 VIEWS 02/07/2025 REASON FOR EXAM: PAIN TECHNIQUE: Five views of the left shoulder COMPARISON: Left shoulder radiographs on 01/11/2025 FINDINGS: No fracture or dislocation. Os acromiale. Joint spaces are maintained. Bone mineral density is subjectively normal. Soft tissues are unremarkable. Visualized hemithorax is clear. RAD/Shoulder min 2 Views IMPRESSION: 1. No acute osseous abnormality of the left shoulder. 2. Incidental note of an os acromiale, which may be a source of pain in some p atients. Reading Location: [id number]
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
--- OUTSIDE RECORDS SUMMARY | 2025-02-07 21:10 | XMS RPT_ITS | CCD ---
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 Platelet mean volume (Bld) [Entitic vol] 9.3 fL 6.2-12.0 [facility] Platelets (Bld) [#/Vol] 308 10*3/uL 150-450 [facility] Mucus LM Ql (Urine sed)Order ed By: Flor Carbajal on 12-05-2023 Mucus Ql (Urine sed) 0 SEEN /hpf [facility] Nitrite Test strip Ql (U)Ord ered By: Flor Carbajal on 12-05-2023 Nitrite Ql (U) Positive Negative [facility] No Panel InformationOrdered By: Flor Carbajal on 12-05-2023 Urine RBC 0 SEEN /hpf 0-5 [facility] C-Reactive Protein Extended Range 88.00 mg/L 0.0-3.0 [facility] Comment on above: C-Reactive Protein ( CRP) provides useful information for thediagnosis, therapy and monitoring of inflammatory processesand associated diseases. For the evaluation of Relative Riskfor Cardiovascular Disease, a High Sensitivity CRP (HSCRP)should be ordered. Estimated Creatinine Clearance Calc 115.44 ml/min [facility] Estimated GFR (MDRD) Amer 103 mL/min >60 [facility] Comment on above: GFR Calc Estimated GFR (MDRD) Non-Af Amer 85 mL/min >60 [facility] Comment on above: Non- GFR Calc Protein Test strip Ql (U)Ord ered By: Flor Carbajal on 12-05-2023 Protein Ql (U) 30 mg/dl Negative [facility] RBC Auto (Bld) [#/Vol]Ordere d By: Flor Carbajal on 12-05-2023 RBC (Bld) [#/Vol] 4.85 10*6/uL 4.6-6.2 [facility] Serum or plasma calcium arina urement (mass/volume)Ordered By: Flor Carbajal on 12-05-2023 Calcium [Mass/Vol] 8.9 mg/dL 8.5-10.1 [facility] Serum or plasma creatinine m easurement (mass/volume)Ordered By: Flor Carbajal on 12-05-2023 Creatinine [Mass/Vol] 1.05 mg/dL 0.70-1.30 [facility] Comment on above: The validity of the calculated GFR & GFRAA in patients over 70 years has not been determined. Clinical correlation is essential. Serum or plasma urea nitroge n measurement (mass/volume)Ordered By: Flor Carbajal on 12-05-2023 Urea nitrogen [Mass/Vol] 13 mg/dL 7-18 [facility] Squamous epithelial cells de tection in urine sediment by light microscopyOrdered By: Flor Carbajal on 12-05-2023 Epithelial cells.squamous LM Ql (Urine sed) 0 SEEN /hpf 0-5 [facility] Thin prep Papanicolaou smear with manual screeningOrdered By: Flor Carbajal on 12-05-2023 Thin prep Papanicolaou smear with manual screening 3.1 g/dL 3.2-5.0 [facility] Thin prep Papanicolaou smear with manual screening 12 U/L 15-37 [facility] Thin prep Papanicolaou smear with manual screening 4 5-15 [facility] Urine blood detectionOrdered By: Flor Carbajal on 12-05-2023 RBC Ql (U) 10 /ul Negative [facility] Urine clarityOrdered By: Rem us Solomon on 12-05-2023 Clarity (U) Clear Clear [facility] Urine color determinationOrd ered By: Flor Carbajal on 12-05-2023 Color (U) Brandy Yellow [facility] Urine glucose detectionOrder ed By: Flor Carbajal on 12-05-2023 Glucose Ql (U) Normal mg/dl Normal [facility] Urine leukocyte esterase det ection by dipstickOrdered By: Flor Carbajal on 12-05-2023 Leukocyte esterase Test strip Ql (U) 25 /ul Negative [facility] Urine pHOrdered By: Flor Un gur on 12-05-2023 pH (U) 5.0 [pH] 5.0 - 8.0 [facility] Urine sediment bacteria coun t by microscopy (number/high power field)Ordered By: Flor Carbajal on 12-05-2023 Bacteria LM.HPF (Urine sed) [#/Area] 1 /[HPF] None Seen [facility] Urine specific gravity measu rementOrdered By: Flor Carbajal on 12-05-2023 Specific gravity (U) [Rel density] 1.025 1.002-1.030 [facility] Urine urobilinogen measureme ntOrdered By: Flor Carbajal on 12-05-2023 Urobilinogen Ql (U) 4 mg/dl Normal [facility] XR ANKLE LEFT (MIN 3 VIEWS)o [...] Zion Alejandro MD 11/17/21 Final result Normal [facility] Comment on above: Order Comment: Reaso n for exam:->injury No acute abnormality of the ankle. [facility] EXAMINATION: THREE XRAY VIEWS OF THE LEFT ANKLE 11/17/2021 6:53 pm COMPARISON: None. HISTORY: ORDERING SYSTEM PROVIDED HISTORY: injury TECHNOLOGIST PROVIDED HISTORY: Reason for exam:->injury FINDINGS: No evidence of acute fracture or dislocation. Normal alignment of the ankle mortise. No focal osseous lesion. No evidence of joint effusion. There is mild soft tissue swelling. [facility] Zion Alejandro MD - 11/17/2021 EXAMINATION: THREE [...] IMPRESSION: No acute abnormality of the ankle. [facility] Work Phone: Radiology Study observation (narrative) [facility] Work Phone: XR ANKLE LEFT (MIN 3 VIEWS)O rdered By: Zion Alejandro on 11-17-2021 [facility] Work Phone: Vital Signs Date Time Vital Sign Value Performing Clinician Facility 01-17-2025 14:47-0400 Body temperature 98.1 [degF] [facility] Work Phone: [facility] 01-17-2025 14:47-0400 Diastolic blood pressure 65 mm[Hg] [facility] Work Phone: [facility] 01-17-2025 14:47-0400 Heart rate 54 /min [facility] Work Phone: [facility] 01-17-2025 14:47-0400 Respiratory rate 13 /min [facility] Work Phone: [facility] 01-17-2025 14:47-0400 SaO2% (BldA) [Mass fraction] 100 % [facility] Work Phone: 6(216)913-614105 [place] [address] 01-17-2025 14:47-0400 Systolic blood pressure 104 mm[Hg] [facility] Work Phone: 8(065)[phone] [place] [address] 01-17-2025 10:42-0400 Body height 193.04 cm [facility] Work Phone: 2(742)[phone] [place] [address] 01-17-2025 10:42-0400 Body mass index (BMI) [Ratio] 25.9 kg/m2 [facility] Work Phone: 3(863)619-913905 [place] [address] 01-17-2025 10:42-0400 Body weight 96.6 kg [facility] Work Phone: 0(050)[phone] [place] [address] 01-16-2025 00:54-0400 Diastolic blood pressure 80 mm[Hg] Erica [facility] DO Work Phone: [facility] 01-16-2025 00:54-0400 Respiratory rate 16 /min Erica [facility] DO Work Phone: [facility] 01-16-2025 00:54-0400 SaO2% (BldA) [Mass fraction] 99 % Erica [employer] DO Work Phone: [facility] 01-16-2025 00:54-0400 Systolic blood pressure 120 mm[Hg] Erica [employer] DO Work Phone: [facility] 01-15-2025 22:34-0400 Body temperature 98.91 [degF] Erica Kiara DO Work Phone: [facility] 01-15-2025 22:34-0400 Heart rate 79 /min Erica [employer] DO Work Phone: [facility] 01-11-2025 10:04-0400 Body height 193.04 cm [facility] Work Phone: [facility] 01-11-2025 10:04-0400 Body mass index (BMI) [Ratio] 25.4 kg/m2 [facility] Work Phone: 8(396)096-820705 [place] [address] 01-11-2025 10:04-0400 Body temperature 98.3 [degF] [facility] Work Phone: 7(006)713-901405 [place] [address] 01-11-2025 10:04-0400 Body weight 94.89 kg [facility] Work Phone: 9(573)[phone] [place] [address] 01-11-2025 10:04-0400 Diastolic blood pressure 70 mm[Hg] [facility] Work Phone: 9(627)026-233005 [place] [address] 01-11-2025 10:04-0400 Heart rate 79 /min [facility] Work Phone: 8(746)[phone] [address] 01-11-2025 10:04-0400 Respiratory rate 16 /min [facility] Work Phone: 2(564)234-476551 [address] 01-11-2025 10:04-0400 SaO2% (BldA) [Mass fraction] 98 % [facility] Work Phone: 6(169)194-304105 [place] [address] 01-11-2025 10:04-0400 Systolic blood pressure 99 mm[Hg] [facility] Work Phone: 0(994)[phone] [place] [address] 12-05-2023 19:43-0400 Body temperature 97.1 [degF] Dr. Flor Carbajal Work Phone: [facility] 12-05-2023 19:43-0400 Diastolic blood pressure 64 mm[Hg] Dr. Flor Carbajal Work Phone: [facility] 12-05-2023 19:43-0400 Heart rate 76 /min Dr. Flor Carbajal Work Phone: [facility] 12-05-2023 19:43-0400 Respiratory rate 16 /min Dr. Flor Carbajal Work Phone: [facility] 12-05-2023 19:43-0400 SaO2% (BldA) [Mass fraction] 95 % Dr. Flor Carbajal Work Phone: [facility] 12-05-2023 19:43-0400 Systolic blood pressure 112 mm[Hg] Dr. Flor Carbajal Work Phone: [facility] 12-05-2023 09:23-0400 Body height 193.[address] Flor Carbajal Work Phone: [facility] 12-05-2023 09:23-0400 Body mass index (BMI) [Ratio] 22.5 kg/m2 Dr. Flor Carbajal Work Phone: [facility] 12-05-2023 09:23-0400 Body weight 83.[address] Flor Carbajal Work Phone: [facility] 11-28-2023 21:41-0400 Body temperature 99 [degF] [facility] 11-28-2023 21:41-0400 Diastolic blood pressure 60 mm[Hg] [facility] 11-28-2023 21:41-0400 Heart rate 98 /min [facility] 11-28-2023 21:41-0400 Respiratory rate 18 /min [facility] 11-28-2023 21:41-0400 SaO2% (BldA) [Mass fraction] 96 % [facility] 11-28-2023 21:41-0400 Systolic blood pressure 114 mm[Hg] [facility] 11-28-2023 18:13-0400 Body height 193.04 cm [facility] 11-28-2023 18:13-0400 Body mass index (BMI) [Ratio] 24.8 kg/m2 [facility] 11-28-2023 18:13-0400 Body weight 92.53 kg [facility] 09-30-2023 21:03-0500 Body temperature 97 [degF] [facility] 09-30-2023 21:03-0500 Diastolic blood pressure 76 mm[Hg] [facility] 09-30-2023 21:03-0500 Heart rate 81 /min [facility] 09-30-2023 21:03-0500 Respiratory rate 18 /min [facility] 09-30-2023 21:03-0500 SaO2% (BldA) [Mass fraction] 99 % [facility] 09-30-2023 21:03-0500 Systolic blood pressure 118 mm[Hg] [facility] 09-30-2023 19:33-0500 Body height 193.04 cm [facility] 09-30-2023 19:33-0500 Body mass index (BMI) [Ratio] 26.2 kg/m2 [facility] 09-30-2023 19:33-0500 Body weight 97.6 kg [facility] 06-30-2023 22:43-0500 Respiratory rate 16 /min [facility] 06-30-2023 22:42-0500 Heart rate 80 /min [facility] 06-30-2023 22:42-0500 SaO2% (BldA) [Mass fraction] 98 % [facility] 06-30-2023 20:51-0500 Body height 193.04 cm [facility] 06-30-2023 20:51-0500 Body mass index (BMI) [Ratio] 22.2 kg/m2 [facility] 06-30-2023 20:51-0500 Body temperature 97.9 [degF] [facility] 06-30-2023 20:51-0500 Body weight 83 kg [facility] 06-30-2023 20:51-0500 Diastolic blood pressure 87 mm[Hg] [facility] 06-30-2023 20:51-0500 Systolic blood pressure 113 mm[Hg] [facility] 03-01-2023 18:27-0400 Body height 193.04 cm [facility] 03-01-2023 18:27-0400 Body mass index (BMI) [Ratio] 26.6 kg/m2 [facility] 03-01-2023 18:27-0400 Body temperature 97.8 [degF] [facility] 03-01-2023 18:27-0400 Body weight 99.33 kg [facility] 03-01-2023 18:27-0400 Diastolic blood pressure 77 mm[Hg] [facility] 03-01-2023 18:27-0400 Heart rate 84 /min [facility] 03-01-2023 18:27-0400 Respiratory rate 18 /min [facility] 03-01-2023 18:27-0400 SaO2% (BldA) [Mass fraction] 99 % [facility] 03-01-2023 18:27-0400 Systolic blood pressure 127 mm[Hg] [facility] 02-28-2023 20:06-0400 Body height 193.04 cm [facility] 02-28-2023 20:06-0400 Body mass index (BMI) [Ratio] 27.6 kg/m2 [facility] 02-28-2023 20:06-0400 Body temperature 98 [degF] [facility] 02-28-2023 20:06-0400 Body weight 102.71 kg [facility] 02-28-2023 20:06-0400 Diastolic blood pressure 72 mm[Hg] [facility] 02-28-2023 20:06-0400 Heart rate 81 /min [facility] 02-28-2023 20:06-0400 Respiratory rate 16 /min [facility] 02-28-2023 20:06-0400 SaO2% (BldA) [Mass fraction] 98 % [facility] 02-28-2023 20:06-0400 Systolic blood pressure 164 mm[Hg] [facility] 11-17-2021 18:33-0400 Body height 193 cm [facility] 11-17-2021 18:33-0400 Body mass index (BMI) [Ratio] 24.34 kg/m2 [facility] 11-17-2021 18:33-0400 Body weight 90.72 kg [facility] 11-17-2021 18:22-0400 Body temperature 98.2 [degF] [facility] 11-17-2021 18:22-0400 Diastolic blood pressure 74 mm[Hg] [facility] 11-17-2021 18:22-0400 Heart rate 96 /min [facility] 11-17-2021 18:22-0400 Respiratory rate 14 /min [facility] 11-17-2021 18:22-0400 SaO2% (BldA) [Mass fraction] 97 % [facility] 11-17-2021 18:22-0400 Systolic blood pressure 135 mm[Hg] [facility] Encounters Encounter Date Encounter Type Care Provider Facility Start: 01-17-2025 End: 01-17-2025 Emergency department patient visit [facility] Work Phone: -Emergency Department Work Phone: Start: 01-15-2025 End: 01-16-2025 Emergency department patient visit Erica Craig DO Work Phone: [facility] Comment on above: Acute pain of left s houlder (Primary Dx) Start: 01-11-2025 End: 01-11-2025 Emergency department patient visit [facility] Work Phone: -Emergency Department Work Phone: Start: 12-05-2023 Evaluation and management of inpatient Dr. Flor Carbajal Work Phone: [facility]-Medical Surgical 3 Work Phone: Start: 12-05-2023 Non-patient / Non-visit Dr. Gracia Carbajal Work Phone: [facility] Start: 11-28-2023 End: 11-28-2023 Emergency department patient visit [facility]-Emergency Department Work Phone: Start: 09-30-2023 End: 09-30-2023 Emergency department patient visit [facility]Emergency Department Work Phone: Start: 06-30-2023 End: 06-30-2023 Emergency department patient visit [facility]-Emergency Department Work Phone: Start: 03-01-2023 End: 03-01-2023 Emergency department patient visit [facility]-Emergency Department Work Phone: Start: 02-28-2023 End: 02-28-2023 Emergency department patient visit [facility]-Emergency Department Work Phone: Start: 11-17-2021 End: 11-17-2021 Emergency department patient visit [facility] Start: 11-17-2021 End: 11-17-2021 Emergency department patient visit [facility] Emergency Department Comment on above: Sprain of left ankle , unspecified ligament, initial encounter (Primary Dx) Procedures Date Procedure Procedure Detail Performing Clinician Start: 01-17-2025 X-ray of cervical spine [facility] Work Phone: Start: 01-17-2025 X-ray of chest, PA and lateral views [facility] Work Phone: Start: 01-17-2025 Estimated creatinine clearance [facility] Work Phone: Start: 01-15-2025 Ct upper extremity w/o contrast material Erica Craig DO Work Phone: Start: 01-11-2025 Plain X-ray of scapula [facility] ter Work Phone: Start: 01-11-2025 Plain X-ray of shoulder [facility] Work Phone: Start: 12-05-2023 Ultrasonography [...] Phone: History of cholecystectomy S/P laparoscopic cholecystectomy [facility] Work Phone: Plan of Treatment Date Care Activity Detail Author Start: 11-18-2062 RSV Immunization for Adults (1 - 1-dose 75+ series) RSV Immunization for Adults (1 - 1-dose 75+ series) [facility] Start: 11-18-2037 Zoster Vaccines (1 of 2) Zoster Vaccines (1 of 2) [facility] Start: 03-25-2025 Influenza vaccination Influenza Vaccine (Season Ended) [facility] Start: 01-17-2025 [facility] Start: 01-17-2025 [facility] Start: 03-25-2024 COVID-19 Vaccine ( season) COVID-19 Vaccine ( season) [facility] Start: 12-06-2023 Triacylglycerol lipase measurement [facility] Start: 12-06-2023 [facility] Start: 12-05-2023 Ambulation without limitation [facility] Start: 12-05-2023 Following clinical pathway protocol [facility] Start: 12-05-2023 Radionuclide study of abdomen [facility] Start: 12-05-2023 Vital signs measurements [facility] Start: 12-05-2023 [facility] Start: 12-05-2023 Admission procedure [facility] Start: 11-28-2023 [facility] Start: 09-30-2023 [facility] [facility] Start: 06-30-2023 [facility] Start: 03-25-2022 Influenza vaccination Flu vaccine (Season Ended) [facility] Start: 11-18-2006 DTaP/Tdap/Td vaccine (1 - Tdap) DTaP/Tdap/Td vaccine (1 - Tdap) [facility] Start: 11-18-2006 DTaP/Tdap/Td Vaccines (1 - Tdap) DTaP/Tdap/Td Vaccines (1 - Tdap) [facility] Start: 11-18-2006 Hepatitis B Vaccines (1 of 3 - 19+ 3-dose series) Hepatitis B Vaccines (1 of 3 - 19+ 3-dose series) [facility] Start: 11-18-2005 Hepatitis C screening [facility] Start: 11-18-2002 HIV screening HIV screen [facility] Start: 11-18-2000 Varicella vaccination Varicella Vaccines (1 of 2 - 13+ 2-dose series) [facility] Start: 1999 Depression Screen Depression Screen [facility] Start: 1999 Depression Screening Depression Screening [facility] Start: 11-18-1992 COVID-19 Vaccine (1) COVID-19 Vaccine (1) [facility] Start: 11-18-1988 MMR Vaccines (1 of 1 - Standard series) MMR Vaccines (1 of 1 - Standard series) [facility] Start: 11-18-1988 Varicella vaccine (1 of 2 - 2-dose childhood series) Varicella vaccine (1 of 2 - 2-dose childhood series) [facility] Start: 1987 HIV screening HIV Screening [facility] Start: 1987 Lipid panel Lipid Panel [facility] Alanine aminotransfe rase [Enzymatic activity/volume] in Serum or Plasma [facility] Albumin [Mass/volume ] in Serum or Plasma [facility] Alkaline phosphatase [Enzymatic activity/volume] in Serum or Plasma [facility] Anion gap measurement [facility] Aspartate aminotrans ferase [Enzymatic activity/volume] in Serum or Plasma [facility] Bilirubin, total measurement [facility] BUN/Creatinine ratio [facility] Calcium [Mass/volume ] in Serum or Plasma [facility] Carbon dioxide, tota l [Moles/volume] in Serum or Plasma [facility] Chloride [Moles/volu me] in Serum or Plasma [facility] Creatinine [Moles/vo lume] in Serum or Plasma [facility] Erythrocyte mean corpuscular volume determination [facility] Glucose [Mass/volume ] in Serum or Plasma [facility] Hematocrit [Volume Fraction] of Blood [facility] Hemoglobin [Mass/vol ume] in Blood [facility] Leukocytes [#/volume ] in Blood [facility] Mean corpuscular hem oglobin concentration determination [facility] Mean corpuscular hem oglobin determination [facility] Measurement of renal function [facility] Neutrophil count [facility] Neutrophil percent differential count [facility] Patient Education [facility] Work Phone: Patient referral [facility] Work Phone: Platelets [#/volume] in Blood [facility] Potassium [Moles/vol ume] in Serum or Plasma [facility] Red blood cell count [facility] Red cell distributio n width determination [facility] Sodium [Moles/volume ] in Serum or Plasma [facility] Total protein measurement [facility] Urea nitrogen [Mass/ volume] in Serum or Plasma [facility] Immunizations Immunization Date Immunization Notes Care Provider Dionne evans 08-18-2009 novel [id number], preservative-free, injectable [facility] Work Phone: [phone] [place] [address] 08-24-2004 hepatitis B vaccine, pediatric or pediatric/adolescent dosage [facility] Work Phone: [phone] [place] [address] 03-20-2001 measles, mumps and rubella virus vaccine [facility] Work Phone: [phone] [place] [address] 03-20-2001 poliovirus vaccine, inactivated [facility] Work Phone: [phone] [place] [address] 06-30-1989 hepatitis B vaccine, pediatric or pediatric/adolescent dosage [facility] Work Phone: [phone] [place] [address] 02-24-1989 diphtheria, tetanus toxoids and acellular pertussis vaccine [facility] Work Phone: [phone] [place] [address] 02-24-1989 measles, mumps and rubella virus vaccine [facility] Work Phone: [phone] [place] [address] 02-24-1989 trivalent poliovirus vaccine, live, oral [facility] Work Phone: [phone] [place] [address] 06-24-1988 diphtheria, tetanus toxoids and acellular pertussis vaccine [facility] Work Phone: [phone] [place] [address] 04-29-1988 diphtheria, tetanus toxoids and acellular pertussis vaccine [facility] Work Phone: [phone] [place] [address] 04-29-1988 trivalent poliovirus vaccine, live, oral [facility] Work Phone: [phone] [place] [address] 01-28-1988 diphtheria, tetanus toxoids and acellular pertussis vaccine [facility] Work Phone: [phone] [place] [address] 01-28-1988 trivalent poliovirus vaccine, live, oral [facility] Work Phone: [phone] [place] [address] Payers Date Payer Category Payer Self-pay [id number] 2024 Medicaid HMO [place] [employer] OD [id number] 2024 Unknown [id number] Medicaid MEDICAID [id number] Unknown [facility] [id number] Unknown [id number] Unknown [id number] Social History Date Type Detail Facility Start: 11-17-2021 Tobacco smoking stat us HIIS Occasional tobacco smoker [facility] Phone: Start: 11-17-2021 Tobacco use and exposure Former smokeless tobacco user [facility] Phone: Start: 1985 Sex Assigned At Not on file [facility] Phone: Start: 11-07-2021 End: 11-17-2021 Exposure to SARS-CoV-2 (event) Not sure [facility] Phone: Start: 02-28-2023 End: 12-05-2023 Tobacco smoking status NHIS Unknown if ever smoked [facility] Start: 1985 Sex Assigned At Male [facility] Start: 01-11-2025 End: 01-17-2025 Tobacco smoking status NHIS Smokes tobacco daily (finding) [facility] Start: 01-15-2025 Sex Male (finding) [facility] Gender identity Not on file [facility] [...] Facility 01-17-2025 Cognitive function Voice/Name [facility] Work Phone: Clinical Notes 02-28-2023 to 01-17-2025 Ericasofy Craig DO - 01/15/2025 10:32 PM EDTBvickie Craig DO - 01/15/2025 10:32 PM EDT Note Date & Type Note Facility 01-17-2025 Radiology Diagnostic study note [facility] Imaging Services [address] [place] [address] Chest PA and Lateral MR#: [id number] Acct: [id number] Name: IGGY BAJWA Rep #: [id number] : 1985 M 39 From: Himanshu Mccracken MD PCP: MELONIE Lake, OUTBOARD MOTOR INSPECTOR-C Status: REG ER Study:Chest PA and Lateral Date of Exam: 01/17/25 Exam# [id number] Ordering Dr: Huang Carrizales DO PROCEDURE: CHEST [...] lungs are clear. Reading Location: [place] CC: [facility] OUTBOARD MOTOR INSPECTOR-Mauri Gimenez; Dr. Huang Carrizales DO ~ Desk Attendant: Signed [facility] 01-17-2025 Radiology Diagnostic study note [facility] Imaging Services [address] [place], [place] [address] Cerv Spine 2 or 3 Views MR#: [id number] Acct: [id number] Name: IGGY BAJWA Rep #: [id number] : 1985 M 39 From: Marc Mueller MD PCP: MELONIE Lake, OUTBOARD MOTOR INSPECTOR-C Status: REG ER Study:Cerv Spine 2 or 3 Views Date of Exam: 01/17/25 Exam# [id number] Ordering Dr: Huang Carrizales DO PROCEDURE: CERV [...] height at C6-7. Reading Location: [place] CC: [facility] OUTBOARD MOTOR INSPECTOR-C Pebbles Gimenez; Dr. Huang Carrizales DO ~ Desk Attendant: Signed [facility] 01-15-2025 Emergency department Note EMERGENCY DEPARTMENT ENCOUNTER [...] of the scapula and shoulder done at [facility] which was negative discharged home on Flexeril [...] of the scapula and shoulder done at [facility] which was negative discharged home on Flexeril [...] Discharge 01/16/2025 12:25:37 AM PATIENT REFERR[facility] [address] [facility] [address] As needed, If symptoms worsen [facility] [place] [address] [facility] [address] DISCHARGE MEDICATIONS: Discharge Medication List [...] DO 01/16/25 0130 documented in this encounter [facility] 01-15-2025 Physician Emergency department Note EMERGENCY [...] of the scapula and shoulder done at [facility] which was negative discharged home on Flexeril [...] of the scapula and shoulder done at [facility] which was negative discharged home on Flexeril [...] Discharge 01/16/2025 12:25:37 AM PATIENT REFERRED TO: [facility] [address] [facility] [address] As needed, If symptoms worsen [facility] [place] [address] [facility] [address] DISCHARGE MEDICATIONS: Discharge Medication List [...] Marital status: Erica Craig DO 01/16/25 0130 [facility] 01-11-2025 Discharge summary [facility] 01-11-2025 Radiology Diagnostic study note [facility] Imaging Services [address] [place], [place] [id number] Scapula MR#: [id number] Acct: [id number] Name: IGGY BAJWA Ciara Rep #: [id number] : 1985 M 39 From: Himanshu Mccracken MD PCP: [facility] Status: REG ER Study:Scapula Date of Exam: 01/11/25 Exam# [id number] Ordering Dr: Daryl Perez MD PROCEDURE: SCAPULA 01/11/2025 REASON FOR EXAM: TRAUMA TECHNIQUE: SCAPULA COMPARISON: None FINDINGS: There is good alignment. No fracture seen. RAD/Scapula IMPRESSION: Unremarkable examination. Reading Location: [place] [address] CC: Dr. Daryl Perez MD; [facility] ~ Desk Attendant: Signed [facility] 01-11-2025 Radiology Diagnostic study note [facility] Imaging Services [address] [place] [address] Shoulder min 2 Views MR#: [id number] Acct: [id number] Name: IGGY BAJWA Rep #: [id number] : 1985 M 39 From: Shira Hardwick MD PCP: [facility] Status: PRE ER Study:Shoulder min 2 Views Date of Exam: 01/11/25 Exam# [id number] Ordering Dr: Daryl Perez MD PROCEDURE: SHOULDER MIN 2 VIEWS 01/11/2025 REASON FOR EXAM: INJURY TECHNIQUE: SHOULDER MIN 2 VIEWS COMPARISON: None RAD/Shoulder min 2 Views IMPRESSION: No acute fracture or dislocations. No acute soft tissue abnormalities. No radiographic foreign body. No significant degenerative changes. Reading Location: [facility] CC: Dr. Daryl Perez MD; [facility] ~ Desk Attendant: Signed [facility] 12-05-2023 History and physi don note Note Date/Time December 05, 2023 3:15pm [facility] Medical Records Department [address] [place] [address] H&P Exam - Surgical 12/05/23 1513 MR#: [id number] Acct: [id number] Name: IGGY BAJWA Rep #:[id number] : 1985 38 From: Julien chew MD PCP: [facility] atus:REG ER Location: ED HPI - General [...] or chills. He denies migration of pain. [facility] Home Medications NK 12/05/23 [History Last Taken [...] Cancelled 12/05/23 09:45: Lymph % (Auto) 19.0, Wy[place] % (Auto) Cancelled 12/05/23 09:45: [place] % (Auto) 10.6 H, Eos % (Auto) [...] Drop Cells Cancelled, Ovalocytes Cancelled, Stomatocytes Cancelled, [place] Bodies Cancelled, Atiya Cells Cancelled, Bite Cells [...] Clarity Clear, Urine pH 5.0, Ur Specific [place] 1.025, Urine Protein 30 H, Urine Glucose [...] ultrasound to evaluate. Julien Alcaraz MD Pager: [facility] [address] [place] [address], [address] [place] [phone] Office: 12/05/23 0039 <Electronically signed by Julien Alcaraz MD> Cosigner Signature (if applicable): CC: Dr. Julien Alcaraz MD; [facility]~ Signed ADDENDUM by Dr. Julien Alcaraz MD [...] cholecystectomy tomorrow afternoon. Julien Alcaraz MD Pager: [facility] [address] [place] [address], [address] [place] [id number] Office: 12/05/231931<Electronically signed by Julien Alcaraz MD> Cosigner Signature (if applicable): cc: Dr. Julien Alcaraz MD; [facility] ~* Signed [facility] Work Phone: [phone] 500-698705-13-2024 Discharge summary Author Naiam Packer [facility] December 05, 2023 7:21pm Note Date/Time December 05, 2023 9:45a m [facility] Medical Records Department [address] [place] [address] Emergency Department Summary 12/05/23 MR#: [id number] Acct: [id number] Name: IGGY BAJWA Rep #:[id number] : 1985 38 From: Flor Carbajal DO PCP: [facility] St atus:REG ER Location: ED HPI HPI [...] (Auto) Neut % (Auto) Lymph % (Auto) [place] % (Auto) Eos % (Auto) Baso % [...] Target Cells Tear Drop Cells Ovalocytes Stomatocytes [place] Bodies [place] Cells Bite Cells Crenated Cell Acanthocytes (Spur) Rouleaux Schistocytes ESR Sodium Potassium Chloride Carbon Dioxide Anion Gap BUN Creatinine Estim Creat Clear Calc Est GFR (MDRD) Af Amer Est GFR (MDRD) Non-Af BUN/Creatinine Ratio Glucose Calcium Total Bilirubin AST ALT Alkaline Phosphatase Total Protein Albumin Globulin Albumin/Globulin Ratio Urine Color Urine Clarity Urine pH Ur Specific [place] Urine Protein Urine Glucose (UA) Urine Ketones [...] (Auto) Neut % (Auto) Lymph % (Auto) [place] % (Auto) Eos % (Auto) Baso % [...] Target Cells Tear Drop Cells Ovalocytes Stomatocytes [place] Bodies Atiya Cells Bite Cells Crenated Cell Acanthocytes (Spur) Rouleaux Schistocytes ESR Sodium Potassium Chloride Carbon Dioxide Anion Gap BUN Creatinine Estim Creat Clear Calc Est GFR (MDRD) Af Amer Est GFR (MDRD) Non-Af BUN/Creatinine Ratio Glucose Calcium Total Bilirubin AST ALT Alkaline Phosphatase Total Protein Albumin Globulin Albumin/Globulin Ratio Urine Color Urine Clarity Urine pH Ur Specific [place] Urine Protein Urine Glucose (UA) Urine Ketones [...] (Auto) Neut % (Auto) Lymph % (Auto) [place] % (Auto) Eos % (Auto) Baso % [...] Target Cells Tear Drop Cells Ovalocytes Stomatocytes [place] Bodies [place] Cells Bite Cells Crenated Cell Acanthocytes (Spur) Rouleaux Schistocytes ESR Sodium Potassium Chloride Carbon Dioxide Anion Gap BUN Creatinine Estim Creat Clear Calc Est GFR (MDRD) Af Amer Est GFR (MDRD) Non-Af BUN/Creatinine Ratio Glucose Calcium Total Bilirubin AST ALT Alkaline Phosphatase Total Protein Albumin Globulin Albumin/Globulin Ratio Urine Color Urine Clarity Urine pH Ur Specific [place] Urine Protein Urine Glucose (UA) Urine Ketones [...] Cancelled Neut % (Auto) Lymph % (Auto) [place] % (Auto) Eos % (Auto) Baso % [...] Target Cells Tear Drop Cells Ovalocytes Stomatocytes [place] Bodies Atiya Cells Bite Cells Crenated Cell Acanthocytes (Spur) Rouleaux Schistocytes ESR Sodium Potassium Chloride Carbon Dioxide Anion Gap BUN Creatinine Estim Creat Clear Calc Est GFR (MDRD) Af Amer Est GFR (MDRD) Non-Af BUN/Creatinine Ratio Glucose Calcium Total Bilirubin AST ALT Alkaline Phosphatase Total Protein Albumin Globulin Albumin/Globulin Ratio Urine Color Urine Clarity Urine pH Ur Specific [place] Urine Protein Urine Glucose (UA) Urine Ketones [...] Cancelled 69.1 Lymph % (Auto) Cancelled 19.0 [place] % (Auto) Cancelled Eos % (Auto) Baso [...] Target Cells Tear Drop Cells Ovalocytes Stomatocytes [place] Bodies Atiya Cells Bite Cells Crenated Cell Acanthocytes (Spur) Rouleaux Schistocytes ESR Sodium Potassium Chloride Carbon Dioxide Anion Gap BUN Creatinine Estim Creat Clear Calc Est GFR (MDRD) Af Amer Est GFR (MDRD) Non-Af BUN/Creatinine Ratio Glucose Calcium Total Bilirubin AST ALT Alkaline Phosphatase Total Protein Albumin Globulin Albumin/Globulin Ratio Urine Color Urine Clarity Urine pH Ur Specific [place] Urine Protein Urine Glucose (UA) Urine Ketones [...] (Auto) Neut % (Auto) Lymph % (Auto) [place] % (Auto) 10.6 H Eos % (Auto) [...] Target Cells Tear Drop Cells Ovalocytes Stomatocytes [place] Bodies Atiya Cells Bite Cells Crenated Cell Acanthocytes (Spur) Rouleaux Schistocytes ESR Sodium Potassium Chloride Carbon Dioxide Anion Gap BUN Creatinine Estim Creat Clear Calc Est GFR (MDRD) Af Amer Est GFR (MDRD) Non-Af BUN/Creatinine Ratio Glucose Calcium Total Bilirubin AST ALT Alkaline Phosphatase Total Protein Albumin Globulin Albumin/Globulin Ratio Urine Color Urine Clarity Urine pH Ur Specific [place] Urine Protein Urine Glucose (UA) Urine Ketones [...] (Auto) Neut % (Auto) Lymph % (Auto) [place] % (Auto) Eos % (Auto) Baso % [...] Target Cells Tear Drop Cells Ovalocytes Stomatocytes [place] Bodies Atiya Cells Bite Cells Crenated Cell Acanthocytes (Spur) Rouleaux Schistocytes ESR Sodium Potassium Chloride Carbon Dioxide Anion Gap BUN Creatinine Estim Creat Clear Calc Est GFR (MDRD) Af Amer Est GFR (MDRD) Non-Af BUN/Creatinine Ratio Glucose Calcium Total Bilirubin AST ALT Alkaline Phosphatase Total Protein Albumin Globulin Albumin/Globulin Ratio Urine Color Urine Clarity Urine pH Ur Specific [place] Urine Protein Urine Glucose (UA) Urine Ketones [...] (Auto) Neut % (Auto) Lymph % (Auto) [place] % (Auto) Eos % (Auto) Baso % [...] Drop Cells Cancelled Ovalocytes Cancelled Stomatocytes Cancelled [place] Bodies Cancelled [place] Cells Cancelled Bite Cells Cancelled Crenated Cell [...] Color Urine Clarity Urine pH Ur Specific [place] Urine Protein Urine Glucose (UA) Urine Ketones [...] (Auto) Neut % (Auto) Lymph % (Auto) [place] % (Auto) Eos % (Auto) Baso % [...] Target Cells Tear Drop Cells Ovalocytes Stomatocytes [place] Bodies [place] Cells Bite Cells Crenated Cell Acanthocytes (Spur) Rouleaux Schistocytes ESR Sodium Potassium Chloride Cancelled Carbon Dioxide 27.0 Cancelled Anion Gap 4 L Cancelled BUN 13 Creatinine Estim Creat Clear Calc Est GFR (MDRD) Af Amer Est GFR (MDRD) Non-Af BUN/Creatinine Ratio Glucose Calcium Total Bilirubin AST ALT Alkaline Phosphatase Total Protein Albumin Globulin Albumin/Globulin Ratio Urine Color Urine Clarity Urine pH Ur Specific [place] Urine Protein Urine Glucose (UA) Urine Ketones [...] (Auto) Neut % (Auto) Lymph % (Auto) [place] % (Auto) Eos % (Auto) Baso % [...] Target Cells Tear Drop Cells Ovalocytes Stomatocytes [place] Bodies [place] Cells Bite Cells Crenated Cell Acanthocytes (Spur) Rouleaux Schistocytes ESR Sodium Potassium Chloride Carbon Dioxide Anion Gap BUN Cancelled Creatinine 1.05 Cancelled Estim Creat Clear Calc 115.44 Cancelled Est GFR (MDRD) Af Amer 103 Est GFR (MDRD) Non-Af BUN/Creatinine Ratio Glucose Calcium Total Bilirubin AST ALT Alkaline Phosphatase Total Protein Albumin Globulin Albumin/Globulin Ratio Urine Color Urine Clarity Urine pH Ur Specific [place] Urine Protein Urine Glucose (UA) Urine Ketones [...] (Auto) Neut % (Auto) Lymph % (Auto) [place] % (Auto) Eos % (Auto) Baso % [...] Target Cells Tear Drop Cells Ovalocytes Stomatocytes [place] Bodies [place] Cells Bite Cells Crenated Cell Acanthocytes (Spur) Rouleaux Schistocytes ESR Sodium Potassium Chloride Carbon Dioxide Anion Gap BUN Creatinine Estim Creat Clear Calc Est GFR (MDRD) Af Amer Cancelled Est GFR (MDRD) Non-Af 85 Cancelled BUN/Creatinine Ratio 12.4 Cancelled Glucose 103 Calcium Total Bilirubin AST ALT Alkaline Phosphatase Total Protein Albumin Globulin Albumin/Globulin Ratio Urine Color Urine Clarity Urine pH Ur Specific [place] Urine Protein Urine Glucose (UA) Urine Ketones [...] (Auto) Neut % (Auto) Lymph % (Auto) [place] % (Auto) Eos % (Auto) Baso % [...] Target Cells Tear Drop Cells Ovalocytes Stomatocytes [place] Bodies Atiya Cells Bite Cells Crenated Cell [...] Color Urine Clarity Urine pH Ur Specific [place] Urine Protein Urine Glucose (UA) Urine Ketones [...] (Auto) Neut % (Auto) Lymph % (Auto) [place] % (Auto) Eos % (Auto) Baso % [...] Target Cells Tear Drop Cells Ovalocytes Stomatocytes [place] Bodies [place] Cells Bite Cells Crenated Cell Acanthocytes (Spur) Rouleaux Schistocytes ESR Sodium Potassium Chloride Carbon Dioxide Anion Gap BUN Creatinine Estim Creat Clear Calc Est GFR (MDRD) Af Amer Est GFR (MDRD) Non-Af BUN/Creatinine Ratio Glucose Calcium Total Bilirubin AST Cancelled ALT 15 L Cancelled Alkaline Phosphatase 80 Cancelled Total Protein 7.1 Albumin Globulin Albumin/Globulin Ratio Urine Color Urine Clarity Urine pH Ur Specific [place] Urine Protein Urine Glucose (UA) Urine Ketones [...] (Auto) Neut % (Auto) Lymph % (Auto) [place] % (Auto) Eos % (Auto) Baso % [...] Target Cells Tear Drop Cells Ovalocytes Stomatocytes [place] Bodies [place] Cells Bite Cells Crenated Cell Acanthocytes (Spur) [...] Color Urine Clarity Urine pH Ur Specific [place] Urine Protein Urine Glucose (UA) Urine Ketones [...] (Auto) Neut % (Auto) Lymph % (Auto) [place] % (Auto) Eos % (Auto) Baso % [...] Target Cells Tear Drop Cells Ovalocytes Stomatocytes [place] Bodies [place] Cells Bite Cells Crenated Cell Acanthocytes (Spur) Rouleaux Schistocytes ESR Sodium Potassium Chloride Carbon Dioxide Anion Gap BUN Creatinine Estim Creat Clear Calc Est GFR (MDRD) Af Amer Est GFR (MDRD) Non-Af BUN/Creatinine Ratio Glucose Calcium Total Bilirubin AST ALT Alkaline Phosphatase Total Protein Albumin Globulin Albumin/Globulin Ratio Cancelled Urine Color Brandy Urine Clarity Clear Urine pH 5.0 Ur Specific [place] 1.025 Urine Protein 30 H Urine Glucose [...] Prescriptions: No Action NK [facility]: Care Physician,No Primary [Non-Staff] - What to do if you have Problems For any increased pain, shortness of breath, bleeding, nausea or vomiting, chestpain, or any unexpected problems, contact your Primary Care Provider. Call [facility] ([phone]) or report to the closest Emergency Room. Call 911 if necessary. 12/05/23 1508 <Electronically signed by Flor Carbajal DO> Cosigner Signature (if applicable): CC: [facility] ~ Signed ADDENDUM by Dr. Flor [...] Carbajal DO> Cosigner Signature (if applicable): cc: [facility] ~* Signed ADDENDUM by Dr. Naima Packer [...] Packer MD> Cosigner Signature (if applicable): cc: [facility] ~* Signed [facility] Work Phone: 1(112) 480-376303-08-2024 Discharge summary Author Huang Carrizales [facility] September 30, 2023 8:56pm Note Date/Time September 30, 2023 8:21 pm [facility] Medical Records Department [address] [place] [id number] Emergency Department Summary 09/30/23 MR#: [id number] Acct: [id number] Name: IGGY BAJWA Rep #:[id number] : 1985 37 From: Huang Henson PCP: [...] clinician: N/A This note was generated with Paxer dictation software. It may contain incorrectwords, spelling, [...] your Primary Care Provider. Call [facility] ([phone]) or report to the closest Emergency Room. Call 911 if necessary. 09/30/232055 <Electronically signed by Huang Henson> Cosigner Signature (if applicable): CC: No Primary Care Physician ~ Signed [facility] Work Phone: [phone]) 956-206812-07-2023 Discharge summary Author Savage Tamayo [facility] June 30, 2023 10:23pm Note Date/Time June 30, 2023 1 0:21pm [facility] Medical Records Department [address] [place] [address] Emergency Department Summary 06/30/23 MR#: [id number] Acct: [id number] Name: IGGY BAJWA Rep #:[id number] : 1985 37 From: Savage Tamayo MD [...] Treatment and Re-Evaluation Narrative: Patient received ibuprofen, Sycamore and clindamycin in the emergency department prior [...] your Primary Care Provider. Call [facility] ([phone]) or report to the closest Emergency Room. Call 911 if necessary. 06/30/232222 <Electronically signed by Savage Tamayo MD> Cosigner Signature (if applicable): CC: No Primary Care Physician ~ Signed [facility] Work Phone: 1(215) 852-326908-08-2023 Discharge summary Author Earle Guzman [facility] March 01, 2023 9:06pm Note Date/Time March 01, 2023 9:0 6pm [facility] Medical Records Department [address] [place] [id number] Emergency Department Summary 03/01/23 MR#: [id number] Acct: [id number] Name: IGGY BAJWA Ciara Rep #:[id number] : 1985 37 From: Earle Guzman MD [...] problems, contact your Primary Care Provider. Call [facility] ([phone]) or report to the closest Emergency Room. Call 911 if necessary. 03/01/23 9388 <Electronically signed by Earle Guzman MD> Cosigner Signature (if applicable): CC: No Primary Care Physician ~ Signed [facility] Work Phone: [phone]) 505-387608-08-2023 Hospital Discharge instructions Additional Instructions Apply ointment to rectum every 1-2 hours as needed for pain. Continue your [id number]-box-xeexqzm hemorrhoid cream.[facility] Work Phone: 1(630) 563-903608-07-2023 Hospital Discharge instructions Additional Instructions Apply ointment to rectum every 1-2 hours as needed for pain. Continue your vjwt-qjt-irdkfmw hemorrhoid cream.[facility] Work Phone: Discharge summary Author Daryl Perez [facility] Note Date/Time January 11, 2025 12:3 7pm [facility] Medical Records Department [address] [place] [address] Emergency Department Summary 01/11/25 MR#: [id number] Acct: [id number] Name: IGGY BAJWA Rep #:[id number] : 1985 39 From: Daryl Perez MD PCP: [facility] St atus:REG ER Location: ED HPI History [...] and his left scapula. No neck pain. [id number]. Denies other injury. [facility] Medical History Alcohol abuse Substance [...] my independent interpretation. He was given 1 Sycamore tablet here, but in review of his [...] pain medication. He will follow-up at the [facility] clinic. Return instructions to the emergency department were reviewed. Disposition is discharged home in stable condition. History & Record Review Discussion w/independent historian: Patient and Significant other Radiography Diagnostic Testing: Clinical Impression(s) from Imaging Studies Shoulder X-Ray 01/11/25 10:33 IMPRESSION: No acute fracture or dislocations. No acute soft tissue abnormalities. No radiographic foreign body. No significant degenerative changes. Reading Location: [facility] Discharge Plan Triage Chief Complaint: Upper Extremity [...] PRN Qty: 20 0RF [facility] [Primary Care Provider] - 3-5 Days if not improving Activity Restrictions/Additional Instructions: Muscle relaxer and anti-inflammatory as directed. Follow-up with primary care at [facility] in 3 to 5 days if not improving. Print Language: Wallisian Disposition Disposition: Home, Self Care What to do if you have Problems For any increased pain, shortness of breath, bleeding, nausea or vomiting, chestpain, or any unexpected problems, contact your Primary Care Provider. Call [facility] ([phone]) or report to the closest Emergency Room. Call 911 if necessary. 01/11/25 1237 <Electronically signed by Daryl Perez MD> Cosigner Signature (if applicable): CC: [facility] ~ Signed [facility] Work Phone: Evaluation note* Diagnosis Sprain of left ankle, unspecified ligament, initial encounter- Primary documented in this encounter [employer] Work Phone: evaluation noteNo assessment information available [facility] Work Phone: Evaluation note* Diagnosis Onset Date Resolution Status Abdominal pain acute [facility] Work Phone: Evaluation note* Diagnosis Acute pain of left shoulder- [facility]* Attachments The following attachments cannot be sent through Care Everywhere. * Ankle Sprain (Wallisian) * RICE: General Info (Wallisian) [facility] Work [facility]: Hospital Discharge instructions Additional Instructions X-ray of foot negative. Continue to use Band-Aids to hold toenail down. Ibuprofen 600 mg every 6 hours as needed. Follow-up with foot doctor as needed.[facility] Work Phone: Hospital Discharge instructions Additional Instructions Take antibiotics until finished.[facility] Work Phone: Hospital Discharge instructions Additional Instructions Muscle relaxer and anti-inflammatory as directed. Follow-up with primary care at [facility] in 3 to 5 days if not improving.[facility] Work Phone: Hospital Discharge instructions* Attachments The following attachments cannot be sent through Care Everywhere. * Opioids for Short-Term Treatment of Pain (Wallisian) * Shoulder Pain Discharge Instructions (Wallisian) [facility] Additional Instructions Cardiac workup negative. Cervical spine x-ray mild degenerative changes lower spine. Chest x-ray negative. Take gabapentin as prescribed. Follow-up with your doctors. Continue medication as prescribed previously.[facility] Work Phone: Reason for referral (narrative)No reason for referral information [facility] Work Phone: Summary Purpose Family History No Family History Records FoundNo Family History Records FoundNo Family History Records Found Advance Directives No Advanced Directives Records Found Advance Directive Response Recorded Date/ Time Living Will No February 28, 2023 8:12pm Power of Food Products Sales Representative No February 28 8:12pm Advance Directive Response Recorded Date/ Time Living Will No March 01, 2023 7:23pm Power of Food Products Sales Representative No March 01 7:23pm Advance Directive Response Recorded Date/ Time Living Will No June 30 9:42pm Power of Food Products Sales Representative No June 30, 2023 9:42pm Advance Directive Response Recorded Date/ Time Living Will No September 30, 2023 8:54pm Power of Food Products Sales Representative No September 29 8:54pm Advance Directive Response Recorded Date/ Time Living Will No November 28, 2023 8: 16pm Power of Food Products Sales Representative No November 28, 2023 8:16pm Advance Directive Response Recorded Date/ Time Living Will No December 05, 2023 1 0:51am Power of Food Products Sales Representative No December 05, 2023 10:51am Advance Directive Response Recorded Date/ Time Do you have a Healthcare Power of Food Products Sales Representative? No January 11, 2025 10:30am Advance Directive Response Recorded Date/ Time Do you have a Healthcare Power of Food Products Sales Representative? No January 17, 2025 11:38am Do you have a Healthcare Power of Food Products Sales Representative? No January 11, 2025 10:30am Chief Complaint [...] section and content) DATE CREATED AUTHOR 11/20/2021 [facility] DATE CREATED AUTHOR AUTHOR'S ORGANIZ ATION 01/17/2025 [facility] DATE CREATED AUTHOR AUTHOR'S ORGANIZ ATION [...] No Primary Care Physician Family Provider Active [facility] Primary Care Provider A ctive Team Status: Active Member Role Status Dates Dr. Flor Carbajal DO Emergency Provider Active [facility] Primary Care Provider A ctive Dr. Julien Alcaraz MD Attending Provider Active Team Status: Inactive Member Role Status Dates No Primary Care Physician Primary Care Provider Active Dr. Jayy iNelsen DO Attending Provider, Emergency P rovider Active Team Status: Active Member Role Status Dates Dr. Flor Carbajal DO Emergency Provider Active [facility] Primary Care Provider A ctive Dr. Julien Alcaraz MD Admit Provider, Attending Provider Active Team Status: Active Member Role Status Dates [facility] Primary Care Provider A ctive Team Status: Inactive Member Role Status Dates [facility] Primary Care Provider A ctive Start: January 11, 2025 End: January 11, 2025 Daryl Perez MD Emergency Provider Active Star t: January 11, 2025 End: January 11, 2025 Team Status: Active Member Role Status Dates Pebbles WILHELM, [employer]OR INSPECTOR-[employer] Primary Care Provider Activ e Team Status: Inactive Member Role Status Dates [facility] Primary Care Provider A ctive Start: January 11, 2025 End: January 11, 2025 Daryl ePrez MD Attending Provider Active Star t: January [...] End: January 17, 2025 Pebbles Gimenez Mauri, OUTBOARD MOTOR INSPECTOR-C Primary Care Provider Activ e Start: January [...] BE BASED ON THE PRIMARY CLINICAL RECORDS. [employer] [facility]. provides no warranty or guarantee of the accuracy or completeness of information in this document.
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
[2025-02-07 21:58] VITALS: BP 137/69; PULSE 75; RESP 18; TEMP 36.6; O2SAT 95
== END 2025-02-07 22:13 | disposition home or self-care (01) ==
PROVIDERS: Emergency Provider Surgery; PCP Nurse Practitioner Family; Visit Provider Surgery
DX: M25.512 Pain in left shoulder (principal); F17.210 Nicotine dependence, cigarettes, uncomplicated; V18.4XXA Pedal cycle driver injured in noncollision transport accident in traffic accident, initial encounter
CPT/HCPCS: 73030; 99282

== ENCOUNTER 2025-02-09 18:18 | Emergency (ER) | payer MEDICAID, SELFPAY ==
[2025-02-09 18:18] VITALS: BP 130/81; PULSE 77; RESP 16; TEMP 36.4; O2SAT 99; BMI 24.9
--- NOTE | 2025-02-09 18:41 | EDS_ITS ---
HPI History of Present Illness Chief Complaint: Lower Extremity Injury Narrative Narrative: Patient is a 39-year-old male with past medical history of PTSD, alcohol abuse, substance abuse, schizophrenia, anxiety, depression who presented to the emergency department with a chief complaint of large wooden splinter in his foot. He states that he went outside to smoke and he notes that his foot slipped on the wooden deck causing a large splinter to go through his foot. He states he attempted to remove this at home however he states that the pain was so severe that he stopped and came here for further evaluation. Patient states that he is unsure when his last tetanus shot was. [facility] Medical History PTSD (post-traumatic stress disorder) Alcohol abuse Substance abuse Autism Bipolar disorder Schizophrenia Anxiety Depression Kidney stones Smoker Migraines Home Medications ?Medication ?Instructions ?Recorded ?Last Taken ?Type cyclobenzaprine 5 mg tablet 5 mg PO TID PRN muscle spa sm 3 02/07/25 Unknown Rx days #9 tabs doxycycline hyclate 100 mg capsule 100 mg PO BID 5 day s #10 caps 02/09/25 Unknown Rx Allergy/AdvReac Type Severity Reaction Status Date / Time bee venom protein (honey bee) Allergy Severe Anaphylaxis Verified 02/09/25 18:20 guaifenesin (From Robitussin) Allergy THROAT Verified 02/09/25 18:20 SWELLING Penicillins Allergy THROAT Verified 02/09/25 18:20 SWELLING Social History household members: family Smoking Status: Current every day smoker tobacco type: cigarettes and cigars alcohol intake: current ROS ROS ED ROS Narrative Neurological: Denies numbness, wheeze, tingling Skin: Complains of a splinter in his foot as noted above EXAM Physical Exam Narrative Exam Narrative: General: Patient lying in bed rest comfortably did not appear to be acute distress Cardiovascular: Regular rate Extremities: +5/5 strength noted in the bilateral upper and lower extremities Neurological: Patient following commands that he was at [facility] year is 2024 Skin: Patient has a large splinter just underneath the skin noted Const Vital Signs: 02/09/25 18:18 02/09/25 20:12 Temperature 97.6 F L 97.6 F L Temperature Source Oral Pulse Rate 77 92 Respiratory Rate 16 18 Blood Pressure 130/81 H 123/62 H Blood Pressure Mean 97 82 Pulse Ox 99 100 Oxygen Delivery Method Room Air MDM MDM MDM Narrative Medical decision making narrative: Patient is a 39-year-old male who presented to the emergency department this complaint of a splinter in his foot. On the differential diagnosis includes but limited to retained foreign body, skin abrasion. Tetanus shot updated. Patient had the splinter removed x 2 here in the emergency department he tolerated this well he was advised to watch out for signs of infection. Patient be placed on doxycycline given first dose here. He was advised if concern for infection he should return here to the emergency department. See procedure note for separate details. All question concerns answered he is discharged home in stable condition. Procedure Timeout protocol was performed prior to initiating procedure. The area was prepped and draped in the usual, sterile manner. The site was anesthetized with 1% percent lidocaine without epinephrine total of 4 cc. Since patient already had a small hole near the top of the splinter however when attempting to remove this the would continue to break therefore I used a 15 blade to make a small linear incision along the length of the splinter and was able to successfully remove this this was copiously irrigated. Bleeding was minimal. There was a very small wood splinter superior to this as well therefore this was also removed with hemostats. Follow-up: The patient tolerated procedure well without complications. Standard postprocedure care is explained and return precautions were given. Discharge Plan Triage Chief Complaint: Lower Extremity Injury ED Provider: Laith Bacon Dx/Rx/DC Orders Clinical Impression: Foreign body in foot, Hx of bipolar disorder, History of migraine Prescriptions: New doxycycline hyclate 100 mg capsule 100 mg PO BID 5 Days Qty: 10 0RF No Action cyclobenzaprine 5 mg tablet 5 mg PO TID PRN (Reason: muscle spasm) 3 Days Qty: 9 0RF Primary Care Provider: Pebbles Gimenez Referrals: Pebbles Gimenez, [employer]ER[employer] [Primary Care Provider] - Activity Restrictions/Additional Instructions: Take antibiotics as prescribed this was sent to your pharmacy. Watch out for signs infection such as surrounding redness or purulent drainage from the wound if this is to occur while antibiotics you need to return to the emergency department. Your tetanus shot was updated. Return with any other concerns Print Language: Argentine Disposition Disposition: Home, Self Care
--- OUTSIDE RECORDS SUMMARY | 2025-02-09 18:46 | XMS RPT_ITS | CCD ---
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 BUN/Creatinine Ratio Glucose Calcium Total Bilirubin AST ALT Alkaline Phosphatase Total Protein Albumin Globulin Albumin/Globulin Ratio Urine Color Urine Clarity Urine pH Ur Specific [place] Urine Protein Urine Glucose (UA) Urine Ketones [...] Cancelled 69.1 Lymph % (Auto) Cancelled 19.0 Pick[place] % (Auto) Cancelled Eos % (Auto) Baso [...] Target Cells Tear Drop Cells Ovalocytes Stomatocytes [place] Bodies Taiya Cells Bite Cells Crenated Cell Acanthocytes (Spur) Rouleaux Schistocytes ESR Sodium Potassium Chloride Carbon Dioxide Anion Gap BUN Creatinine Estim Creat Clear Calc Est GFR (MDRD) Af Amer Est GFR (MDRD) Non-Af BUN/Creatinine Ratio Glucose Calcium Total Bilirubin AST ALT Alkaline Phosphatase Total Protein Albumin Globulin Albumin/Globulin Ratio Urine Color Urine Clarity Urine pH Ur Specific [place] Urine Protein Urine Glucose (UA) Urine Ketones [...] (Auto) Neut % (Auto) Lymph % (Auto) Pickens % (Auto) 10.6 H Eos % (Auto) [...] Target Cells Tear Drop Cells Ovalocytes Stomatocytes [place] Bodies Atiya Cells Bite Cells Crenated Cell Acanthocytes (Spur) Rouleaux Schistocytes ESR Sodium Potassium Chloride Carbon Dioxide Anion Gap BUN Creatinine Estim Creat Clear Calc Est GFR (MDRD) Af Amer Est GFR (MDRD) Non-Af BUN/Creatinine Ratio Glucose Calcium Total Bilirubin AST ALT Alkaline Phosphatase Total Protein Albumin Globulin Albumin/Globulin Ratio Urine Color Urine Clarity Urine pH Ur Specific [place] Urine Protein Urine Glucose (UA) Urine Ketones [...] (Auto) Neut % (Auto) Lymph % (Auto) [place] % (Auto) Eos % (Auto) Baso % [...] Target Cells Tear Drop Cells Ovalocytes Stomatocytes [place] Bodies Atiya Cells Bite Cells Crenated Cell Acanthocytes (Spur) Rouleaux Schistocytes ESR Sodium Potassium Chloride Carbon Dioxide Anion Gap BUN Creatinine Estim Creat Clear Calc Est GFR (MDRD) Af Amer Est GFR (MDRD) Non-Af BUN/Creatinine Ratio Glucose Calcium Total Bilirubin AST ALT Alkaline Phosphatase Total Protein Albumin Globulin Albumin/Globulin Ratio Urine Color Urine Clarity Urine pH Ur Specific [place] Urine Protein Urine Glucose (UA) Urine Ketones [...] (Auto) Neut % (Auto) Lymph % (Auto) [place] % (Auto) Eos % (Auto) Baso % [...] Drop Cells Cancelled Ovalocytes Cancelled Stomatocytes Cancelled [place] Bodies Cancelled Atiya Cells Cancelled Bite Cells [...] Color Urine Clarity Urine pH Ur Specific [place] Urine Protein Urine Glucose (UA) Urine Ketones [...] (Auto) Neut % (Auto) Lymph % (Auto) [place] % (Auto) Eos % (Auto) Baso % [...] Target Cells Tear Drop Cells Ovalocytes Stomatocytes [place] Bodies Atiya Cells Bite Cells Crenated Cell [...] Color Urine Clarity Urine pH Ur Specific [place] Urine Protein Urine Glucose (UA) Urine Ketones Urine Occult Blood Urine Nitrite Urine Bilirubin Urine Urobilinogen Ur Leukocyte Esterase Urine RBC Urine WBC Ur Squamous Epith Cells Urine Bacteria Urine Mucus 0512/05/23 12/05/23 09:45 09:45 09:45 WBC Corrected WBC RBC Hgb Hct MCV MCH MCHC RDW Std Deviation RDW Coeff of Angel Plt Count MPV Immature Gran % (Auto) Neut % (Auto) Lymph % (Auto) Pick[place] % (Auto) Eos % (Auto) Baso % [...] Target Cells Tear Drop Cells Ovalocytes Stomatocytes [place] Bodies Fru[place]urst Cells Bite Cells Crenated Cell Acanthocytes (Spur) Rouleaux Schistocytes ESR Sodium Potassium Chloride Carbon Dioxide Anion Gap BUN Cancelled Creatinine 1.05 Cancelled Estim Creat Clear Calc 115.44 Cancelled Est GFR (MDRD) Af Amer 103 Est GFR (MDRD) Non-Af BUN/Creatinine Ratio Glucose Calcium Total Bilirubin AST ALT Alkaline Phosphatase Total Protein Albumin Globulin Albumin/Globulin Ratio Urine Color Urine Clarity Urine pH Ur Specific [place] Urine Protein Urine Glucose (UA) Urine Ketones [...] (Auto) Neut % (Auto) Lymph % (Auto) [place] % (Auto) Eos % (Auto) Baso % [...] Target Cells Tear Drop Cells Ovalocytes Stomatocytes [place] Bodies [place]ru[place]st Cells Bite Cells Crenated Cell Acanthocytes (Spur) Rouleaux Schistocytes ESR Sodium Potassium Chloride Carbon Dioxide Anion Gap BUN Creatinine Estim Creat Clear Calc Est GFR (MDRD) Af Amer Cancelled Est GFR (MDRD) Non-Af 85 Cancelled BUN/Creatinine Ratio 12.4 Cancelled Glucose 103 Calcium Total Bilirubin AST ALT Alkaline Phosphatase Total Protein Albumin Globulin Albumin/Globulin Ratio Urine Color Urine Clarity Urine pH Ur Specific [place] Urine Protein Urine Glucose (UA) Urine Ketones [...] (Auto) Neut % (Auto) Lymph % (Auto) [place] % (Auto) Eos % (Auto) Baso % [...] Target Cells Tear Drop Cells Ovalocytes Stomatocytes [place] Bodies Atiya Cells Bite Cells Crenated Cell [...] Color Urine Clarity Urine pH Ur Specific [place] Urine Protein Urine Glucose (UA) Urine Ketones [...] (Auto) Neut % (Auto) Lymph % (Auto) [place] % (Auto) Eos % (Auto) Baso % [...] Target Cells Tear Drop Cells Ovalocytes Stomatocytes [place] Bodies Atiya Cells Bite Cells Crenated Cell [...] Color Urine Clarity Urine pH Ur Specific [place] Urine Protein Urine Glucose (UA) Urine Ketones [...] (Auto) Neut % (Auto) Lymph % (Auto) Pickens % (Auto) Eos % (Auto) Baso % [...] Target Cells Tear Drop Cells Ovalocytes Stomatocytes [place] Bodies Fru[place]urst Cells Bite Cells Crenated Cell Acanthocytes (Spur) [...] Color Urine Clarity Urine pH Ur Specific [place] Urine Protein Urine Glucose (UA) Urine Ketones [...] (Auto) Neut % (Auto) Lymph % (Auto) [place] % (Auto) Eos % (Auto) Baso % [...] Target Cells Tear Drop Cells Ovalocytes Stomatocytes [place] Bodies [place]st Cells Bite Cells Crenated Cell Acanthocytes (Spur) Rouleaux Schistocytes ESR Sodium Potassium Chloride Carbon Dioxide Anion Gap BUN Creatinine Estim Creat Clear Calc Est GFR (MDRD) Af Amer Est GFR (MDRD) Non-Af BUN/Creatinine Ratio Glucose Calcium Total Bilirubin AST ALT Alkaline Phosphatase Total Protein Albumin Globulin Albumin/Globulin Ratio Cancelled Urine Color Brandy Urine Clarity Clear Urine pH 5.0 Ur Specific [place]wood 1.025 Urine Protein 30 H Urine Glucose [...] Prescriptions: No Action NK [facility] Referrals: Care Physician,No Primary [Non-Staff] - What to do if you have Problems For any increased pain, shortness of breath, bleeding, nausea or vomiting, chestpain, or any unexpected problems, contact your Primary Care Provider. Call [facility] ([phone]) or report to the closest Emergency Room. Call 911 if necessary. 12/05/23 1508 <Electronically signed by Flor Carbajal DO> Cosigner Signature (if applicable): CC: [facility] ~ Signed ADDENDUM by Dr. Flor [...] Carbajal DO> Cosigner Signature (if applicable): cc: [facility] ~* Signed ADDENDUM by Dr. Naima [...] Packer MD> Cosigner Signature (if applicable): cc: [facility] ~* Signed [facility] Work Phone: [phone]) 232-580203-08-2024 Discharge summary Author Huang Carrizales [facility] September 30, 2023 8:56pm Note Date/Time September 30, 2023 8:21 pm [facility] Medical Records Department [address] [place] [address] Emergency Department Summary 09/30/23 MR#: [id number] Acct: [id number] Name: IGGY BAJWA Rep #:[id number] : 1985 37 From: Huang Henson PCP: [...] clinician: N/A This note was generated with Dot dictation software. It may contain incorrectwords, spelling, [...] your Primary Care Provider. Call [facility] ([phone]) or report to the closest Emergency Room. Call 911 if necessary. 09/30/232055 <Electronically signed by Huang Henson> Cosigner Signature (if applicable): CC: No Primary Care Physician ~ Signed [facility] Work Phone: [phone] 408-627712-07-2023 Discharge summary Author Savage Tamayo [facility] June 30, 2023 10:23pm Note Date/Time June 30, 2023 1 0:21pm [facility] Medical Records Department [address] [place] [address] Emergency Department Summary 06/30/23 MR#: [id number] Acct: [id number] Name: IGGY BAJWA Rep #:[id number] : 1985 37 From: Savage Tamayo MD [...] Treatment and Re-Evaluation Narrative: Patient received ibuprofen, Ely and clindamycin in the emergency department prior [...] your Primary Care Provider. Call [facility] ([phone]) or report to the closest Emergency Room. Call 911 if necessary. 06/30/232222 <Electronically signed by Savage Tamayo MD> Cosigner Signature (if applicable): CC: No Primary Care Physician ~ Signed [facility] Work Phone: [phone] 380-183308-08-2023 Discharge summary Author Earle Guzman [facility] March 01, 2023 9:06pm Note Date/Time March 01, 2023 9:0 6pm [facility] System Medical Records Department [address] [facility] [place] [address] Emergency Department Summary 03/01/23 MR#: [id number] Acct: [id number] Name: IGGY BAJWA Rep #:[id number] : 1985 37 From: Earle Guzman MD [...] problems, contact your Primary Care Provider. Call [employer] [facility] ([phone]) or report to the closest Emergency Room. Call 911 if necessary. 03/01/232105 <Electronically signed by Earle Guzman MD> Cosigner Signature (if applicable): CC: No Primary Care Physician ~ Signed [facility] Work Phone: [phone] Hospital Discharge instructions Additional Instructions Apply ointment to rectum every 1-2 hours as needed for pain. Continue your knrs-yes-estczwo hemorrhoid cream.[facility] Work Phone: [phone]) [phone] Hospital Discharge instructions Additional Instructions Apply ointment to rectum every 1-2 hours as needed for pain. Continue your [id number]-gkrrncx hemorrhoid cream.[facility] Work Phone: Discharge summary Author Daryl Perez [facility] Note Date/Time January 11, 2025 12:3 7pm [facility] Medical Records Department [address] [place] [address] Emergency Department Summary 01/11/25 MR#: [id number] Acct: [id number] Name: IGGY BAJWA Rep #:[id number] : 1985 39 From: Daryl Perez MD PCP: [facility] at:[facility] ER Location: ED HPI History of Present [...] and his left scapula. No neck pain. [id number]-[id number]. Denies other injury. [facility] Medical History Alcohol abuse Substance abuse Autism [...] my independent interpretation. He was given 1 Ely tablet here, but in review of his [...] pain medication. He will follow-up at the [facility] clinic. Return instructions to the emergency department were reviewed. Disposition is discharged home in stable condition. History & Record Review Discussion w/independent historian: Patient and Significant other Radiography Diagnostic Testing: Clinical Impression(s) from Imaging Studies Shoulder X-Ray 01/11/25 10:33 IMPRESSION: No acute fracture or dislocations. No acute soft tissue abnormalities. No radiographic foreign body. No significant degenerative changes. Reading Location: [facility] Discharge Plan Triage Chief Complaint: Upper [...] PRN Qty: 20 0RF [facility]: [facility] [Primary Care Provider] - 3-5 Days if not improving Activity Restrictions/Additional Instructions: Muscle relaxer and anti-inflammatory as directed. Follow-up with primary care at [facility] in 3 to 5 days if not improving. Print Language: Irish Disposition Disposition: Home, Self Care What to do if you have Problems For any increased pain, shortness of breath, bleeding, nausea or vomiting, chestpain, or any unexpected problems, contact your Primary Care Provider. Call [facility] ([phone]) or report to the closest Emergency Room. Call 911 if necessary. 01/11/25 1237 <Electronically signed by Daryl Perez MD> Cosigner Signature (if applicable): CC: [facility] ~ Signed [facility] Work Phone: Evaluation note* Diagnosis Sprain of left ankle, unspecified ligament, initial encounter- Primary documented in this encounter [facility] Work Phone: evaluation noteNo assessment information available [facility] Work Phone: Evaluation note* Diagnosis Onset Date Resolution Status Abdominal pain acute [facility] Work Phone: Evaluation note* Diagnosis Acute pain of left shoulder- [facility]* Attachments The following attachments cannot be sent through Care Everywhere. * Ankle Sprain (Irish) * RICE: General Info (Irish) [facility] Work [facility]: Hospital Discharge instructions Additional Instructions X-ray of foot negative. Continue to use Band-Aids to hold toenail down. Ibuprofen 600 mg every 6 hours as needed. Follow-up with foot doctor as needed.[facility] Work Phone: Hospital Discharge instructions Additional Instructions Take antibiotics until finished.[facility] Work Phone: Hospital Discharge instructions Additional Instructions Muscle relaxer and anti-inflammatory as directed. Follow-up with primary care at [facility] in 3 to 5 days if not improving.[facility] Work Phone: Hospital Discharge instructions* Attachments The following attachments cannot be sent through Care Everywhere. * Opioids for Short-Term Treatment of Pain (Irish) * Shoulder Pain Discharge Instructions (Irish) [facility] Additional Instructions Cardiac workup negative. Cervical spine x-ray mild degenerative changes lower spine. Chest x-ray negative. Take gabapentin as prescribed. Follow-up with your doctors. Continue medication as prescribed previously.[facility] Work Phone: Hospital Discharge instructionsAdditional Instructions Tylenol and ibuprofen as needed for pain. Follow-up with orthopedic physician. Do not drive or operate heavy machinery while taking muscle relaxers.[facility] Work Phone: Reason for referral (narrative)No reason for referral information availableWChillicothe [facility] Work Phone: Summary Purpose Family History No Family History Records FoundNo Family History Records FoundNo Family History Records Found Advance Directives Advance Directive Response Recorded Date/ Time Living Will No February 28, 2023 8:12pm Power of Plant Operator Helper No February 28 8:12pm Advance Directive Response Recorded Date/ Time Living Will No March 01, 2023 7:23pm Power of Plant Operator Helper No March 01 7:23pm Advance Directive Response Recorded Date/ Time Living Will No June 30 9:42pm Power of Plant Operator Helper No June 30, 2023 9:42pm Advance Directive Response Recorded Date/ Time Living Will No September 30, 2023 8:54pm Power of Plant Operator Helper No September 29 8:54pm Advance Directive Response Recorded Date/ Time Living Will No November 28, 2023 8: 16pm Power of Plant Operator Helper No November 28, 2023 8:16pm Advance Directive Response Recorded Date/ Time Living Will No December 05, 2023 1 0:51am Power of Plant Operator Helper No December 05, 2023 10:51am Advance Directive Response Recorded Date/ Time Do you have a Healthcare Power of Plant Operator Helper? No January 11, 2025 10:30am Advance Directive Response Recorded Date/ Time Do you have a Healthcare Power of Plant Operator Helper? No January 17, 2025 11:38am Do you have a Healthcare Power of Plant Operator Helper? No January 11, 2025 10:30am Advance Directive Response Recorded Date/ Time Do you have a Healthcare Power of Plant Operator Helper? No January 17, 2025 11:38am Do you have a Healthcare Power of Plant Operator Helper? No February 07, 2025 8:33pm Do you have a Healthcare Power of Plant Operator Helper? No January 11, 2025 10:30am Chief Complaint [...] chest pain January 17, 2025 10:4 1am Chief Complaint Admit Date SHOULDER INJURY January 11, 2025 10:0 3am chest pain January 17, 2025 10:4 1am L SHOULDER February 07, 2025 8:11 pm Additional Source Comments Reason for Visit (unrecogniz [...] section and content) DATE CREATED AUTHOR 11/20/2021 [facility] DATE CREATED AUTHOR AUTHOR'S ORGANIZ ATION 01/17/2025 [facility] DATE CREATED AUTHOR AUTHOR'S ORGANIZ ATION 01/23/2025 [facility] Care Teams (unrecognized sec tion and [...] No Primary Care Physician Family Provider Active [facility] Primary Care Provider A ctive Team Status: Active Member Role Status Dates Dr. Flor Carbajal DO Emergency Provider Active [facility] Primary Care Provider A ctive Dr. Julien Alcaraz MD Attending Provider Active Team Status: Inactive Member Role Status Dates No Primary Care Physician Primary Care Provider Active Dr. Jayy Nielsen DO Attending Provider, Emergency P farshad Active Team Status: Active Member Role Status Dates Dr. Flor Carbajal DO Emergency Provider Active [facility] Primary Care Provider A ctive Dr. Julien Alcaraz MD Admit Provider, Attending Provider Active Team Status: Active Member Role Status Dates [facility] Primary Care Provider A ctive Team Status: Inactive Member Role Status Dates [facility] Primary Care Provider A ctive Start: January 11, 2025 End: January 11, 2025 Daryl Perez MD Emergency Provider Active Star t: January 11, 2025 End: January 11, 2025 Team Status: Active Member Role Status Dates Pebbles WILHELM, MEDICAL TERMINOLOGIST-C Primary Care Provider Activ e Team Status: Inactive Member Role Status Dates [facility] Primary Care Provider A ctive Start: January [...] 17, 2025 End: January 17, 2025 Pebbles WILHELM, MEDICAL TERMINOLOGIST-C Primary Care Provider Activ e Start: January 17, 2025 End: January 17, 2025 Team Status: Active Member Role/Relationship Status Dates Pebbles WILHELM, MEDICAL TERMINOLOGIST-C Primary Care Provider Activ e Team Status: Inactive Member Role/Relationship Status Dates [facility] Primary Care Provider A ctive Start: January 11, 2025 End: January 11, 2025 Daryl Perez MD Attending Provider Active Star t: January 11, 2025 End: January 11, 2025 Daryl Perez MD Emergency Provider Active Star t: January 11, 2025 End: January 11, 2025 Team Status: Inactive Member Role/Relationship Status Dates Dr. Huang Carrizales DO Attending Provider Active Start : January 17, 2025 End: January 17, 2025 Dr. Huang Carrizales DO Referring Provider Active Start : January 17, 2025 End: January 17, 2025 Dr. Huang Carrizales , DO Emergency Provider Active Start : January 17, 2025 End: January 17, 2025 Pebbles Pernell WILHELM, MEDICAL TERMINOLOGIST-C Primary Care Provider Activ e Start: January 17, 2025 End: January 17, 2025 Team Status: Inactive Member Role/Relationship Status Dates Pebbles Gimenez MELONIE, MEDICAL TERMINOLOGIST-C Primary Care Provider Activ e Start: February 07, 2025 End: February 07, 2025 Dr. Jones Desir , DO Emergency Provider Activ e Start: February 07, 2025 End: February 07, 2025 Goals (unrecognized section and content) Goals [...] BE BASED ON THE PRIMARY CLINICAL RECORDS. [facility]. provides no warranty or guarantee of the accuracy or completeness of information in this document.
[2025-02-09] MEDS: Lidocaine 1% (20 ml mdv) 20 ML Vial 10 ML INFILT (18:53)
[2025-02-09 20:12] VITALS: BP 123/62; PULSE 92; RESP 18; TEMP 36.4; O2SAT 100
== END 2025-02-09 20:28 | disposition home or self-care (01) ==
PROVIDERS: Emergency Provider Emergency Medicine; PCP Nurse Practitioner Family; Visit Provider Emergency Medicine
DX: S90.859A Superficial foreign body, unspecified foot, initial encounter (principal); F20.9 Schizophrenia, unspecified; F31.9 Bipolar disorder, unspecified; F41.9 Anxiety disorder, unspecified; F17.210 Nicotine dependence, cigarettes, uncomplicated; W01.0XXA Fall on same level from slipping, tripping and stumbling without subsequent striking against object, initial encounter; Z23 Encounter for immunization
CPT/HCPCS: 90471; 90715; 99283